=== PATIENT | female | born 1980 | race Caucasian/White ===

== ENCOUNTER → 2016-07-19 | Outpatient (CLI) | payer BC ==
[2016-07-19 12:14] LABS: CH 27.2; CHCM 32.8; HCT 42.1 % (34.0-46.0); HDW 2.89; HGB 13.3 gm/dL (11.4-16.0); MCH 26.3 pg (25.0-35.0); MCHC 31.5 g/dL (31.0-37.0); MCV 83.3 fL (80.0-100.0); Mean Platelet Volume 7.6; RBC 5.05 m/uL (3.80-5.40); RDW 14.6 % (11.5-15.5); WBC 6.1 k/uL (3.8-10.6)
[2016-07-19 12:44] LABS: INR 1.1 (<1.1)
[2016-07-19 13:06] LABS: ALT 30 U/L (9-52); AST 19 U/L (14-36); Alkaline Phosphatase 77 U/L (38-126); Anion Gap 10 mmol/L; Blood Urea Nitrogen 16 mg/dL (7-17); Calcium 9.3 mg/dL (8.4-10.2); Carbon Dioxide 28 mmol/L (22-30); Chloride 105 mmol/L (98-107); Cholesterol 135 mg/dL (<200); Glucose 67 mg/dL (74-99); HDL Cholesterol 51 mg/dL (40-60); Iron 46 ug/dL (37-170); Magnesium 1.8 mg/dL (1.6-2.3); Non-African American GFR(MDRD) >60 (>60 ml/min/1.73 sqM); Potassium 4.3 mmol/L (3.5-5.1); Sodium 143 mmol/L (137-145); Total Bilirubin 0.3 mg/dL (0.2-1.3); Total Protein 7.6 g/dL (6.3-8.2); Triglycerides 83 mg/dL (<150)
[2016-07-19 13:18] LABS: % Iron Saturation 14.8 % (20-50); Prealbumin 24 mg/dL (18-36); Total Iron Binding Capacity 310 ug/dL (265-497)
[2016-07-19 14:13] LABS: Vitamin B12 283 pg/mL (239-931)
[2016-07-19 14:48] LABS: Hemoglobin A1C 4.9 % (4.2-6.1)
[2016-07-21 18:54] LABS: Selenium 141 mcg/L (63-160)
== END | disposition home or self-care (01) ==
LOC: LABWHC1 11:34
PROVIDERS: ATTEND Surgery Plastic and Reconstructive Surgery
DX: Z48.815 Encounter for surgical aftercare following surgery on the digestive system (principal); E66.01 Morbid (severe) obesity due to excess calories; E21.1 Secondary hyperparathyroidism, not elsewhere classified; N19 Unspecified kidney failure; E89.1 Postprocedural hypoinsulinemia; D50.8 Other iron deficiency anemias; K90.9 Intestinal malabsorption, unspecified; E44.0 Moderate protein-calorie malnutrition; E55.9 Vitamin D deficiency, unspecified; K74.1 Hepatic sclerosis; K50.90 Crohn's disease, unspecified, without complications; Z98.84 Bariatric surgery status
CPT/HCPCS: 36415; 80053; 80061; 82306; 82525; 82607; 82728; 82746; 83036; 83540; 83550; 83735; 83970; 84100; 84134; 84255; 84425; 84443; 84590; 84630; 85027; 85610; 85730

== ENCOUNTER → 2016-08-03 | Outpatient (CLI) | payer BC ==
[2016-08-03 09:59] VITALS: BP 133/85; PULSE 82; RESP 18; TEMP 97.8; BMI 34.2
--- NOTE | 2016-09-19 22:31 | P.PN ---
Progress Note - Text DATE OF SERVICE: 08/03/2016 CHIEF COMPLAINT: Followup gastric bypass. HISTORY OF PRESENT ILLNESS: Candice Avery is a 36-year-old female who is status post Magaly-en-Y gastric bypass in October 2015. She is 9 months out. At the height of 5 feet 1-1/2 inches, her highest weight was 293 pounds. Today she comes in weighing 184 pounds. Her ideal body weight is 131 pounds. She has already lost 109 pounds. She has achieved 68% excess weight loss. Body mass index is reduced from 54.6 down to 34.2. Total BMI point reduction is 22.4. She is overweight by 53 pounds. She has lost another 13 pounds since her last evaluation, 4 months ago. She has been using nystatin powder for her chronic panniculitis as well. She has complete resolution of her diabetes type 2 including improvement of her hypertension as well and also reports resolution of gastroesophageal reflux disease. PAST MEDICAL HISTORY: 1. Diabetes type 2, resolved. 2. Hypertension, resolved. 3. Fatty liver disease. 4. Hypothyroidism. 5. Morbid obesity. 6. Gastroesophageal disease, resolved. PAST SURGICAL HISTORY: 1. x4. 2. Hysterectomy. 3. Endoscopy. 4. Uterine ablation. 5. Repeat upper endoscopy with balloon dilatation. 6. Gastric Bypass. MEDICATIONS: 1. Multivitamin. 2. Biotin. ALLERGIES: 1. AMOXICILLIN. 2. LATEX. 3. PENICILLIN. 4. SULFA. 5. CODEINE. 6. METFORMIN. SOCIAL HISTORY: No tobacco use. FAMILY HISTORY: Family history is pertinent for gallbladder disease. Also notable for heart disease. REVIEW OF SYSTEMS: CONSTITUTIONAL: [place] body weight of 131 pounds. She has lost 109 pounds. Percent excess weight loss is 68%. Body mass index reduced from 54.6 down to 34.2. Additional weight loss of 13 pounds in 3 to 4 months. ENDOCRINE: Resolved diabetes type 2. RESPIRATORY: Resolved obstructive sleep apnea. CARDIOVASCULAR: Resolved hypertension. GASTROINTESTINAL: No reports of gastroesophageal reflux disease. MUSCULOSKELETAL: Resolved lower back, including bilateral hip and knee pain due to morbid obesity. HEENT: No trouble with vision or hearing. SKIN: Consistent with panniculitis. HEMATOLOGIC: No personal or family history DVT or pulmonary emboli. PHYSICAL EXAM: VITAL SIGNS: 97.8, 82, 18, 133/85, 5 foot 1-1/2 inch, 184 pounds. Body mass index is 34.2. GENERAL: Well-developed female in no acute distress. ABDOMEN: Soft, nontender. No large palpable incisional hernias. Pannus extends over pubis over 6 cm. Hyperemia of the skin consistent with panniculitis. HEENT: No sclera icterus. Extraocular movements grossly intact. Moist buccal mucosa. Head is atraumatic, normocephalic. Hears conversational speech. No nasal drainage. NECK: Supple without lymphadenopathy. No JV distention. CHEST: Non-labored respirations and equal bilateral excursions. CARDIOVASCULAR: Regular rate and rhythm. Palpable 2+ radial pulses. MUSCULOSKELETAL: No clubbing, cyanosis or edema. NEUROLOGIC: No focal or lateralizing signs. PSYCH: Appropriate affect. Alert and oriented to person, place and time. LABS: Bariatric metabolic panel reviewed with hemoglobin normal at 13.3. PTT was elevated at 42. Glucose was in fact low at 67. Hemoglobin A1c completely resolved from 7.3 down to 4.9. Percent iron saturation down low at 14.8. Vitamin D severely deficient at 8.5. ASSESSMENT: 1. Morbid obesity due to excess calories, improved. 2. Body mass index reduced from 54.6 down to 34.2. 3. Status post Magaly-en-Y gastric bypass. 4. History of gastrojejunal stricture, resolved. 5. History of intractable nausea and vomiting, now resolved. 6. Reactive hypoglycemia, now resolved. 7. Diabetes type 2, [id number], resolved. 8. Hypokalemia, now resolved. 9. Low prealbumin, now resolved. 10. Vitamin A deficiency. 11. Thiamine deficiency. 12. Severe vitamin D deficiency. 13. Secondary hyperparathyroidism. 14. Poor calcium intake. 15. Fatty liver disease. 16. Hyperlipidemia. 17. Osteoarthritis of lower back secondary to morbid obesity, now resolved. 18. Osteoarthritis of the bilateral hips secondary to morbid obesity, now resolved. 19. Osteoarthritis of bilateral knees secondary to morbid obesity, now resolved. 20. Hypersomnia. 21. Dietary surveillance and counseling. 22. Resolved dysphagia. 23. Overweight. 24. Resolved hypertension. 25. Resolved obstructive sleep apnea. 26. Panniculitis, recurrent over 1 year of treatment. PLAN: 1. On exam, she has findings consistent with moderate size pannus including panniculitis. Recommend continue nystatin treatment. 2. She has lost over 100 pounds, would recommend evaluation for panniculectomy. 3. Panniculectomy packet was reviewed with risks of panniculectomy including bleeding, infection, flap failure, seroma including additional surgical procedure were described at length. 4. With her history of vitamin D deficiency, recommend immediate correction. 5. She will benefit from a 2-week high protein, low-calorie diet prior to her surgical intervention. 6. Recommend followup upon her one year followup. 7. DVT prophylaxis. 8. Antibiotic prophylaxis.
== END | disposition home or self-care (01) ==
LOC: BARWHC3 09:40
PROVIDERS: ATTEND Surgery Plastic and Reconstructive Surgery
DX: Z71.3 Dietary counseling and surveillance (principal); E66.01 Morbid (severe) obesity due to excess calories; Z68.34 Body mass index [BMI] 34.0-34.9, adult
CPT/HCPCS: 99211

== ENCOUNTER → 2016-11-30 | Outpatient (CLI) | payer BC ==
[2016-11-30 11:29] VITALS: BMI 32.9
[2016-11-30 11:54] VITALS: BP 131/91; PULSE 76; TEMP 98
[2016-11-30 12:15] LABS: CH 27.3; CHCM 32.7; HCT 40.7 % (34.0-46.0); HDW 2.86; HGB 13.8 gm/dL (11.4-16.0); MCH 28.4 pg (25.0-35.0); MCHC 33.9 g/dL (31.0-37.0); MCV 83.9 fL (80.0-100.0); Mean Platelet Volume 6.8; RBC 4.85 m/uL (3.80-5.40); RDW 14.4 % (11.5-15.5); WBC 5.2 k/uL (3.8-10.6)
[2016-11-30 12:23] LABS: ALT 39 U/L (9-52); AST 16 U/L (14-36); Alkaline Phosphatase 90 U/L (38-126); Anion Gap 12 mmol/L; Blood Urea Nitrogen 13 mg/dL (7-17); Calcium 9.2 mg/dL (8.4-10.2); Carbon Dioxide 23 mmol/L (22-30); Chloride 107 mmol/L (98-107); Cholesterol 124 mg/dL (<200); Glucose 82 mg/dL (74-99); HDL Cholesterol 52 mg/dL (40-60); Iron 35 ug/dL (37-170); Magnesium 1.9 mg/dL (1.6-2.3); Non-African American GFR(MDRD) >60 (>60 ml/min/1.73 sqM); Phosphorous 4.1 mg/dL (2.5-4.5); Potassium 4.1 mmol/L (3.5-5.1); Sodium 142 mmol/L (137-145); Total Bilirubin 0.4 mg/dL (0.2-1.3); Triglycerides 68 mg/dL (<150)
[2016-11-30 12:33] LABS: % Iron Saturation 11.3 % (20-50); Prealbumin 24 mg/dL (18-36); Total Iron Binding Capacity 310 ug/dL (265-497)
[2016-11-30 13:14] LABS: Hemoglobin A1C 4.9 % (4.2-6.1)
[2016-11-30 13:28] LABS: Vitamin B12 236 pg/mL (239-931)
[2016-11-30 13:52] LABS: INR 1.1 (<1.1); Partial Thromboplastin Time 33.5 sec (22.0-30.0); Prothrombin Time 10.9 sec (9.0-12.0)
[2016-12-05 16:17] LABS: Selenium 159 mcg/L (63-160)
--- NOTE | 2016-12-13 19:03 | P.PN ---
Progress Note - Text DATE OF SERVICE: 11/30/2016 CHIEF COMPLAINT: Followup gastric bypass. HISTORY OF PRESENT ILLNESS: Candice Avery is a 36-year-old female who is status post Magaly-en-Y gastric bypass in October 2015. She is 13 months out. At the height of 5 feet 1-1/2 inches, her highest weight was 293 pounds. Today she comes in weighing 177 pounds. Her ideal body weight is 131 pounds. She has lost 116 pounds. She has achieved 72% excess weight loss. Body mass index is reduced from 54.6 down to 32.9. Total BMI point reduction is 21.6. She is overweight by 46 pounds. She has lost another 7 pounds since her last evaluation, 4 months ago. She comes in with moderate to severe recurrent panniculitis of the skin. Despite using powders and medicated and prescribed creams, her symptoms are still persistent. PAST MEDICAL HISTORY: 1. Diabetes type 2, resolved. 2. Hypertension, resolved. 3. Fatty liver disease. 4. Hypothyroidism. 5. Morbid obesity. 6. Gastroesophageal disease, resolved. 7. Panniculitis. PAST SURGICAL HISTORY: 1. x4. 2. Hysterectomy. 3. Endoscopy. 4. Uterine ablation. 5. Repeat upper endoscopy with balloon dilatation. 6. Gastric Bypass. MEDICATIONS: 1. Ativan. ALLERGIES: 1. AMOXICILLIN. 2. LATEX. 3. PENICILLIN. 4. SULFA. 5. CODEINE. 6. METFORMIN. SOCIAL HISTORY: No tobacco use. FAMILY HISTORY: Family history is pertinent for gallbladder disease. Also notable for heart disease. REVIEW OF SYSTEMS: CONSTITUTIONAL: At the height of 5 feet 1-1/2 inches, her highest weight was 293 pounds. Today she comes in weighing 177 pounds. Her ideal body weight is 131 pounds. She has lost 116 pounds. She has achieved 72% excess weight loss. Body mass index is reduced from 54.6 down to 32.9. Total BMI point reduction is 21.6. She is overweight by 46 pounds. ENDOCRINE: Resolved diabetes type 2. No thyroid disorder. RESPIRATORY: Resolved obstructive sleep apnea. No recent pneumonia. CARDIOVASCULAR: Resolved hypertension. No chest pain. GASTROINTESTINAL: No reports of gastroesophageal reflux disease. No reports of dumping syndrome. MUSCULOSKELETAL: Resolved lower back, including bilateral hip and knee pain due to morbid obesity. HEENT: No trouble with vision or hearing. SKIN: Consistent with panniculitis. HEMATOLOGIC: No personal or family history DVT or pulmonary emboli. PHYSICAL EXAM: VITAL SIGNS: 5 foot 1-1/2 inch, 177 pounds. Body mass index is 32.9 Vital Signs Temp 98.0 F 11/30/16 11:52 Pulse 76 11/30/16 11:52 Resp BP 131/91 11/30/16 11:52 Pulse Ox GENERAL: Well-developed female in no acute distress. ABDOMEN: Soft, nontender. Pannus extends over pubis over 10 cm. Hyperemia of the skin consistent with panniculitis. Waist 42.5 inches. Weight of pannus between 10-15 pounds. HEENT: No sclera icterus. Extraocular movements grossly intact. Moist buccal mucosa. Head is atraumatic, normocephalic. Hears conversational speech. No nasal drainage. NECK: Supple without lymphadenopathy. No JV distention. CHEST: Non-labored respirations and equal bilateral excursions. CARDIOVASCULAR: Regular rate and rhythm. Palpable 2+ radial pulses. MUSCULOSKELETAL: No clubbing, cyanosis or edema. NEUROLOGIC: No focal or lateralizing signs. PSYCH: Appropriate affect. Alert and oriented to person, place and time. LABS: Laboratory Last Values WBC 5.2 k/uL (3.8-10.6) 11/30/16 11:39 RBC 4.85 m/uL (3.80-5.40) 11/30/16 11:39 Hgb 13.8 gm/dL (11.4-16.0) 11/30/16 11:39 Hct 40.7 % (34.0-46.0) 11/30/16 11:39 MCV 83.9 fL (80.0-100.0) 11/30/16 11:39 MCH 28.4 pg (25.0-35.0) 11/30/16 11:39 MCHC 33.9 g/dL (31.0-37.0) 11/30/16 11:39 RDW 14.4 % (11.5-15.5) 11/30/16 11:39 Plt Count 267 k/uL (150-450) 11/30/16 11:39 PT 10.9 sec (9.0-12.0) 11/30/16 11:39 INR 1.1 (<1.1) 11/30/16 11:39 APTT 33.5 sec (22.0-30.0) H 11/30/16 11:39 Sodium 142 mmol/L (137-145) 11/30/16 11:39 Potassium 4.1 mmol/L (3.5-5.1) 11/30/16 11:39 Chloride 107 mmol/L (98-107) 11/30/16 11:39 Carbon Dioxide 23 mmol/L (22-30) 11/30/16 11:39 Anion Gap 12 mmol/L 11/30/16 11:39 BUN 13 mg/dL (7-17) 11/30/16 11:39 Creatinine 0.50 mg/dL (0.52-1.04) L 11/30/16 11:39 Est GFR (MDRD) Af Amer >60 (>60 ml/min/1.73 sqM) 11/30/16 11:39 Est GFR (MDRD) Non-Af >60 (>60 ml/min/1.73 sqM) 11/30/16 11:39 Glucose 82 mg/dL (74-99) 11/30/16 11:[address] Glu mg/dL 94 mg/dL 11/30/16 11:39 Hemoglobin A1c 4.9 % (4.2-6.1) 11/30/16 11:39 Calcium 9.2 mg/dL (8.4-10.2) 11/30/16 11:39 Phosphorus 4.1 mg/dL (2.5-4.5) 11/30/16 11:39 Magnesium 1.9 mg/dL (1.6-2.3) 11/30/16 11:39 Iron 35 ug/dL (37-170) L 11/30/16 11:39 TIBC 310 ug/dL (265-497) 11/30/16 11:39 % Saturation 11.3 % (20-50) L 11/30/16 11:39 Ferritin 61 ng/mL (6-137) 11/30/16 11:39 Total Bilirubin 0.4 mg/dL (0.2-1.3) 11/30/16 11:39 AST 16 U/L (14-36) 11/30/16 11:39 ALT 39 U/L (9-52) 11/30/16 11:39 Alkaline Phosphatase 90 U/L (38-126) 11/30/16 11:39 Total Protein 7.0 g/dL (6.3-8.2) 11/30/16 11:39 Albumin 4.2 g/dL (3.5-5.0) 11/30/16 11:39 Prealbumin 24 mg/dL (18-36) 11/30/16 11:39 Triglycerides 68 mg/dL (<150) 11/30/16 11:39 Cholesterol 124 mg/dL (<200) 11/30/16 11:39 LDL Cholesterol, Calc 58 mg/dL (0-99) 11/30/16 11:39 HDL Cholesterol 52 mg/dL (40-60) 11/30/16 11:39 Vitamin A 45 ug/dL (38-106) 11/30/16 11:39 Vitamin B1 62 ug/L (38-122) 11/30/16 11:39 Vitamin B12 236 pg/mL (239-931) L 11/30/16 11:39 Vitamin D 25-Hydroxy 15.8 ng/mL (30.0-100.0) L 11/30/16 11:39 Folate 11.70 ng/mL (>2.75) 11/30/16 11:39 TSH 1.370 mIU/L (0.465-4.680) 11/30/16 11:39 PTH Intact 72.8 pg/mL (14.0-72.0) H 11/30/16 11:39 Copper 1200 ug/L (810-1990) 11/30/16 11:39 Selenium 159 mcg/L (63-160) 11/30/16 11:39 Zinc 66 ug/dL (60-130) 11/30/16 11:39 ASSESSMENT: 1. Morbid obesity due to excess calories, improved. 2. Body mass index reduced from 54.6 down to 32.9. 3. Status post Magaly-en-Y gastric bypass. 4. Diabetes type 2, [id number], resolved. 5. Hypokalemia, now resolved. 6. Vitamin A deficiency. 7. Secondary hyperparathyroidism. 8. Osteoarthritis of lower back secondary to morbid obesity, now resolved. 9. Osteoarthritis of the bilateral hips secondary to morbid obesity, now resolved. 10. Osteoarthritis of bilateral knees secondary to morbid obesity, now resolved. 11. Resolved hypertension. 12. Resolved obstructive sleep apnea. 13. Panniculitis, recurrent over 1 year of treatment. 14. Iron deficiency anemia. 15. Vitamin B12 deficiency. 16. Vitamin D deficiency. PLAN: 1. Recommend bariatric metabolic panel. 2. Correction of I deficiency, vitamin B-12 deficiency and vitamin D deficiency prior to panniculectomy. 3. Protein intake over 60 g daily. 4. She has long-standing panniculitis and on exam have over 10+ pounds of excess skin causing symptoms. Recommend panniculectomy after correction of nutritional deficiencies. 5. Benefits and risks of panniculectomy including bleeding, infection, loss of 6 skin flap, loss of umbilicus, chronic pain, postoperative seroma, placement of drains were reviewed in detail. 6. Inpatient hospitalization over 2 nights. 7. DVT prophylaxis. 8. Antibiotic prophylaxis. 9. Recommend obtaining an abdominal binder formfitting at this time.
== END | disposition home or self-care (01) ==
LOC: BARWHC3 09:43
PROVIDERS: ATTEND Surgery Plastic and Reconstructive Surgery
DX: E66.01 Morbid (severe) obesity due to excess calories (principal); E50.9 Vitamin A deficiency, unspecified; E21.3 Hyperparathyroidism, unspecified; D50.9 Iron deficiency anemia, unspecified; E55.9 Vitamin D deficiency, unspecified; E53.8 Deficiency of other specified B group vitamins; E89.1 Postprocedural hypoinsulinemia; D50.8 Other iron deficiency anemias; K90.9 Intestinal malabsorption, unspecified; E44.0 Moderate protein-calorie malnutrition; K74.1 Hepatic sclerosis; N19 Unspecified kidney failure; K50.90 Crohn's disease, unspecified, without complications; Z88.0 Allergy status to penicillin; Z88.2 Allergy status to sulfonamides; Z88.5 Allergy status to narcotic agent; Z91.040 Latex allergy status
CPT/HCPCS: 36415; 80053; 80061; 82306; 82525; 82607; 82728; 82746; 83036; 83540; 83550; 83735; 83970; 84100; 84134; 84255; 84425; 84443; 84590; 84630; 85027; 85610; 85730; 97803; 99211

== ENCOUNTER 2017-03-26 21:20 | Emergency (ER) | payer SELFPAY ==
[2017-03-26 21:24] VITALS: TEMP 97.8
[2017-03-26] MEDS ORDERED: HYDROmorphone 1 MG/ML 1 ML SYRINGE IVP STA (21:58)
[2017-03-26] MEDS ORDERED: KETOROLAC 30 MG/ML 1 ML VIAL IVP STA (21:58)
[2017-03-26] MEDS ORDERED: SODIUM CHLORIDE 0.9% 500 ML IV ONE (21:59)
[2017-03-26 22:35] LABS: Appearance,Urine Cloudy (Clear); Bacteria,Urine Many /hpf; Bilirubin,Urine Negative (Negative); Glucose,Urine (UA) Negative (Negative); Ketones,Urine Negative (Negative); Leukocyte Esterase,Urine Moderate (Negative); Mucus,Urine Rare /hpf; Nitrite,Urine Positive (Negative); Particle Count 7207; Protein,Urine Negative (Negative); Specific Gravity,Urine 1.019 (1.001-1.035); Squamous Epithelial Cell,Urine 3 /hpf (0-4); UA Billing (MACRO vs. MICRO) MICRO; WBC,Urine 12 /hpf (0-5)
[2017-03-26 22:42] LABS: Basophils % (A) 0 %; CHCM 32.3; Eosinophils # (A) 0.1 k/uL (0-0.7); Eosinophils % (A) 1 %; HCT 43.7 % (34.0-46.0); HDW 2.69; HGB 13.9 gm/dL (11.4-16.0); Luc # (Auto) 0.13; Luc % (Auto) 2; Lymphocytes # (A) 2.6 k/uL (1.0-4.8); Lymphocytes % (A) 35 %; MCH 27.8 pg (25.0-35.0); MCHC 31.9 g/dL (31.0-37.0); MCV 87.1 fL (80.0-100.0); Mean Platelet Volume 6.8; Monocytes # (A) 0.3 k/uL (0-1.0); Monocytes % (A) 4 %; Neutrophils # (A) 4.3 k/uL (1.3-7.7); Neutrophils % (A) 57 %; RBC 5.02 m/uL (3.80-5.40); RDW 13.9 % (11.5-15.5); WBC 7.4 k/uL (3.8-10.6); WBC (Perox) 7.28
[2017-03-26 22:51] LABS: ALT 25 U/L (9-52); AST 15 U/L (14-36); Alkaline Phosphatase 84 U/L (38-126); Amylase 60 U/L (30-110); Anion Gap 9 mmol/L; Blood Urea Nitrogen 18 mg/dL (7-17); Calcium 9.4 mg/dL (8.4-10.2); Carbon Dioxide 25 mmol/L (22-30); Chloride 106 mmol/L (98-107); Glucose 89 mg/dL (74-99); Non-African American GFR(MDRD) >60 (>60 ml/min/1.73 sqM); Potassium 4.2 mmol/L (3.5-5.1); Sodium 140 mmol/L (137-145); Total Bilirubin 0.2 mg/dL (0.2-1.3); Total Protein 7.6 g/dL (6.3-8.2)
--- NOTE | 2017-03-26 23:24 | ED ---
Female Urogenital HPI - General Chief complaint: Urogenital Stated complaint: Back Pain Time Seen by Provider: 03/26/17 21:52 Source: patient Mode of arrival: ambulatory Limitations: no limitations - History of Present Illness Initial comments: 37-year-old female patient presents to emergency department today for complaints of right flank pain. Patient states that she has had this pain since . States it is a constant aching pain. She denies any worsening of the pain with movement. States she has taken Tylenol however has not helped. She denies any radiation of the pain down her legs. Denies any numbness or tingling. Denies a loss of bowel or bladder control. Denies any saddle anesthesia. States that she has had increased frequency of urination. States that she does have a history of kidney stones however this pain is different. Patient denies any recent rash, fever, chills, shortness breath, chest pain, abdominal pain, nausea, vomiting, diarrhea, constipation, dizziness , weakness, hematuria, dysuria, urinary urgency, headache, visual changes, or any other complaints. She denies any chance of . - Related Data Home Medications Medication Instructions Recorded Confirmed Acetaminophen [Tylenol] 325 - 650 mg PO Q6H PRN 03/26/17 03/26/17 Previous Rx's Medication Instructions Recorded Ciprofloxacin HCl [Cipro] 500 mg PO Q12HR #14 tablet 03/26/17 Hydrocodone/Acetaminophen [Collison 1 tab PO Q6HR PRN #15 tab 03/26/17 5-325] Allergies Allergy/AdvReac Type Severity Reaction Status Date / Time latex Allergy pain and Verified 03/26/17 21:42 itching amoxicillin AdvReac flu like Verified 03/26/17 21:42 symptoms codeine AdvReac Nausea Verified 03/26/17 21:42 metformin AdvReac DIARRHEA Verified 03/26/17 21:42 AND FLU LIKE SYMPTOMS Penicillins AdvReac flu like Verified 03/26/17 21:42 symptoms Sulfa (Sulfonamide AdvReac flu like Verified 03/26/17 21:42 Antibiotics) symptoms Review of Systems ROS Statement: Those systems with pertinent positive or pertinent negative responses have been documented in the HPI. ROS Other: All systems not noted in ROS Statement are negative. Past Medical History Past Medical History: Hyperlipidemia, Liver Disease Additional Past Medical History / Comment(s): Fatty liver,hx difficulty swallowing, no tx. for diabetes anymore. Left face numbness 01/16/16, red raised rash on arms and legs-went to ER History of Any Multi-Drug Resistant Organisms: None Reported Past Surgical History: Bariatric Surgery, Section, Hysterectomy, Tonsillectomy, Uterine Ablation Additional Past Surgical History / Comment(s): exploratory lower abdominal laparoscopy.10-11-15 lap brenda en y, recent EGD Past Anesthesia/Blood Transfusion Reactions: No Reported Reaction Additional Past Anesthesia/Blood Transfusion Reaction / Comment(s): claustrophobia Past Psychological History: Depression Smoking Status: Never smoker Past Alcohol Use History: None Reported Past Drug Use History: None Reported - Past Family History Mother Family Medical History: Congestive Heart Failure (CHF), Fibromyalgia Additional Family Medical History / Comment(s): at 43 from heart failure General Exam Limitations: no limitations General appearance: alert, in no apparent distress, other (This is a well- developed, well-nourished adult female patient in no acute distress. Vital signs upon presentation are temperature 97.8F, pulse 83, respirations 20, blood pressure 133/88, pulse ox 98% on room air.) Respiratory exam: Present: normal lung sounds bilaterally. Absent: respiratory distress, wheezes, rales, rhonchi, stridor Cardiovascular Exam: Present: regular rate, normal rhythm, normal heart sounds. Absent: systolic murmur, diastolic murmur, rubs, gallop, clicks GI/Abdominal exam: Present: soft, normal bowel sounds. Absent: distended, tenderness, guarding, rebound, rigid Back exam: Present: normal inspection. Absent: CVA tenderness (R), CVA tenderness (L) Neurological exam: Present: alert, oriented X3, CN II-XII intact Psychiatric exam: Present: normal affect, normal mood Skin exam: Present: warm, dry, intact, normal color. Absent: rash Course Vital Signs 03/26/17 03/26/17 03/26/17 21:22 22:12 23:41 Temperature 97.8 F Pulse Rate 83 77 72 Respiratory 20 18 16 Rate Blood Pressure 133/88 138/88 115/83 O2 Sat by Pulse 98 97 98 Oximetry 03/27/17 00:44 Temperature 97.8 F Pulse Rate 74 Respiratory 18 Rate Blood Pressure 136/81 O2 Sat by Pulse 97 Oximetry Medical Decision Making - Medical Decision Making 37-year-old female patient presents to emergency department today with complaints of right flank and right lower back pain. Serum labs reviewed and were unremarkable. Urinalysis did show a cloudy appearance, small amount of blood, positive nitrites, moderate leukocyte esterase, 12 white blood cells, many bacteria, rare mucus, and few budding yeast. Patient's vital signs are stable, she is afebrile. She'll be diagnosed with urinary tract infection. She 'll be given a an IV dose of Rocephin here in the department. She does have a documented ALLERGY to penicillin however just states that it makes her feel achy. She has previous a tolerated Cipro without any problems we will start this as outpatient prescription. She is instructed to follow-up with her primary care physician for recheck in 1-2 days. She is instructed to obtain repeat urinalysis once antibiotics are complete to ensure clearance of infection. She is instructed to return here immediately for any new, worsening , or concerning symptoms. She was informed of all findings and her questions were answered. She verbalizes understanding and agrees with this plan. - Lab Data Result diagrams: 03/26/17 22:34 03/26/17 22:34 Lab Results 03/26/17 03/26/17 03/26/17 Range/Units 22:17 22:34 22:34 WBC 7.4 (3.8-10.6) k/uL RBC 5.02 (3.80-5.40) m/uL Hgb 13.9 (11.4-16.0) gm/dL Hct 43.7 (34.0-46.0) % MCV 87.1 (80.0-100.0) fL MCH 27.8 (25.0-35.0) pg MCHC 31.9 (31.0-37.0) g/dL RDW 13.9 (11.5-15.5) % Plt Count 298 (150-450) k/uL Neutrophils % 57 % Lymphocytes % 35 % Monocytes % 4 % Eosinophils % 1 % Basophils % 0 % Neutrophils # 4.3 (1.3-7.7) k/uL Lymphocytes # 2.6 (1.0-4.8) k/uL Monocytes # 0.3 (0-1.0) k/uL Eosinophils # 0.1 (0-0.7) k/uL Basophils # 0.0 (0-0.2) k/uL Sodium 140 (137-145) mmol/L Potassium 4.2 (3.5-5.1) mmol/L Chloride 106 (98-107) mmol/L Carbon Dioxide 25 (22-30) mmol/L Anion Gap 9 mmol/L BUN 18 H (7-17) mg/dL Creatinine 0.61 (0.52-1.04) mg/dL Est GFR (MDRD) Af Amer >60 (>60 ml/min/1.73 sqM) Est GFR (MDRD) Non-Af >60 (>60 ml/min/1.73 sqM) Glucose 89 (74-99) mg/dL Calcium 9.4 (8.4-10.2) mg/dL Total Bilirubin 0.2 (0.2-1.3) mg/dL AST 15 (14-36) U/L ALT 25 (9-52) U/L Alkaline Phosphatase 84 (38-126) U/L Total Protein 7.6 (6.3-8.2) g/dL Albumin 4.5 (3.5-5.0) g/dL Amylase 60 (30-110) U/L Lipase 196 (23-300) U/L Urine Color Yellow Urine Appearance Cloudy H (Clear) Urine pH 6.0 (5.0-8.0) Ur Specific [place] 1.019 (1.001-1.035) Urine Protein Negative (Negative) Urine Glucose (UA) Negative (Negative) Urine Ketones Negative (Negative) Urine Blood Small H (Negative) Urine Nitrite Positive H (Negative) Urine Bilirubin Negative (Negative) Urine Urobilinogen 2.0 (<2.0) mg/dL Ur Leukocyte Esterase Moderate H (Negative) Urine WBC 12 H (0-5) /hpf Ur Squamous Epith Cells 3 (0-4) /hpf Urine Bacteria Many H (None) /hpf Urine Mucus Rare H (None) /hpf Urine Yeast (Budding) Few H (None) /hpf Disposition Clinical Impression: Urinary tract infection, Flank pain Disposition: HOME SELF-CARE Condition: Good Instructions: Urinary Tract Infection in Women (ED) Additional Instructions: Increase fluids. Complete antibiotic prescription in full. Follow-up with your primary care physician for recheck in 1-2 days. Return here immediately for any new, worsening, or concerning symptoms. Prescriptions: Ciprofloxacin HCl [Cipro] 500 mg PO Q12HR #14 tablet Hydrocodone/Acetaminophen [Collison 5-325] 1 tab PO Q6HR PRN #15 tab PRN Reason: Pain Referrals: Dwain Orr DO [Primary Care Provider] - 1-2 days Time of Disposition: 23:24
[2017-03-27] MEDS ORDERED: ONDANSETRON 4 MG ODT STARTER PACK 2 TAB BTL PO PRN (00:38)
[2017-03-27 00:45] VITALS: BP 136/81; PULSE 74; RESP 18
[2017-03-27] MEDS ORDERED: ONDANSETRON 4 MG ODT STARTER PACK 2 TAB BTL PO STA (00:45)
== END 2017-03-27 00:49 | disposition home or self-care (01) ==
LOC: EC 21:20
DX: N39.0 Urinary tract infection, site not specified (principal); Z87.442 Personal history of urinary calculi; Z88.0 Allergy status to penicillin; Z88.2 Allergy status to sulfonamides; Z88.5 Allergy status to narcotic agent; Z88.8 Allergy status to other drugs, medicaments and biological substances; Z91.040 Latex allergy status
CPT/HCPCS: 99283 ×2; 96374 ×2; 96375 ×3; 36415; 80053; 82150; 83690; 85025; 81001; J0696; J1885; J1170; S0119

== ENCOUNTER → 2017-10-24 | Outpatient (CLI) | payer SELFPAY ==
[2017-10-24 17:06] VITALS: BP 119/82; PULSE 94; TEMP 97.9; BMI 40.2
--- NOTE | 2017-10-24 17:31 | P.PN ---
Subjective Progress Note Date: 10/24/17 DATE OF SERVICE: 10/24/2017 CHIEF COMPLAINT: Follow-up gastric bypass. HISTORY OF PRESENT ILLNESS: Candice Avery is a 37-year-old female who is status post Magaly-en-Y gastric bypass in October 2015. She is 2 years out. At the height of 5 feet 1-1/2 inches, her highest weight was 293 pounds. Today she comes in weighing 216 pounds from 177 pounds 1 year ago. Her ideal body weight is 131 pounds. She has lost 77 pounds from 116 pounds. She has achieved 47% excess weight loss. Body mass index is reduced from 54.6 down to 40.3. She is overweight by 85 pounds. She has gained 39 pounds in 1 year. She comes in moderate weight gain today. She reports fatigue all the time. She has been gaining 1 pound each week. She is not on any vitamins. She is donating plasma. No reports of abdominal pain. She is hungry all the time. She is food grazing. She is eating moderate cheese and eating processed meats. No reports of constipation. She has not seen her PCP in over 1 year. She has milk allergy. PAST MEDICAL HISTORY: 1. Diabetes type 2, resolved. 2. Hypertension, resolved. 3. Fatty liver disease. 4. Hypothyroidism. 5. Morbid obesity. 6. Gastroesophageal disease, resolved. 7. Panniculitis. PAST SURGICAL HISTORY: 1. x4. 2. Hysterectomy. 3. Endoscopy. 4. Uterine ablation. 5. Repeat upper endoscopy with balloon dilatation. 6. Gastric Bypass. MEDICATIONS: 1. Ativan. ALLERGIES: 1. AMOXICILLIN. 2. LATEX. 3. PENICILLIN. 4. SULFA. 5. CODEINE. 6. METFORMIN. SOCIAL HISTORY: No tobacco use. FAMILY HISTORY: Family history is pertinent for gallbladder disease. Also notable for heart disease. REVIEW OF SYSTEMS: CONSTITUTIONAL: At the height of 5 feet 1-1/2 inches, her highest weight was 293 pounds. Today she comes in weighing 177 pounds. Her ideal body weight is 131 pounds. She has lost 116 pounds. She has achieved 72% excess weight loss. Body mass index is reduced from 54.6 down to 32.9. Total BMI point reduction is 21.6. She is overweight by 46 pounds. ENDOCRINE: Resolved diabetes type 2. No thyroid disorder. RESPIRATORY: Resolved obstructive sleep apnea. No recent pneumonia. CARDIOVASCULAR: Resolved hypertension. No chest pain. GASTROINTESTINAL: No reports of gastroesophageal reflux disease. No reports of dumping syndrome. MUSCULOSKELETAL: Resolved lower back, including bilateral hip and knee pain due to morbid obesity. HEENT: No trouble with vision or hearing. SKIN: Consistent with panniculitis. HEMATOLOGIC: No personal or family history DVT or pulmonary emboli. PHYSICAL EXAM: VITAL SIGNS: 5 foot 1-1/2 inch, 216 pounds. Body mass index is 40.3 Vital Signs Temp 97.9 F 10/24/17 17:00 Pulse 94 10/24/17 17:00 Resp BP 119/82 10/24/17 17:00 Pulse Ox GENERAL: Well-developed female in no acute distress. ABDOMEN: Soft, nontender. Nondistended. HEENT: No sclera icterus. Extraocular movements grossly intact. Moist buccal mucosa. Head is atraumatic, normocephalic. Hears conversational speech. No nasal drainage. NECK: Supple without lymphadenopathy. No JV distention. CHEST: Non-labored respirations and equal bilateral excursions. CARDIOVASCULAR: Regular rate and rhythm. Palpable 2+ radial pulses. MUSCULOSKELETAL: No clubbing, cyanosis or edema. NEUROLOGIC: No focal or lateralizing signs. Cranial nerves II-12 grossly intact. PSYCH: Appropriate affect. Alert and oriented to person, place and time. SKIN: Well perfused. Good skin turgor. ASSESSMENT: 1. Morbid obesity due to excess calories, improved. 2. Body mass index reduced from 54.6 down to 40.1 3. Status post Magaly-en-Y gastric bypass. 4. Diabetes type 2, [id number] 5. Weight gain following bariatric procedure. PLAN: 1. Get labs for bariatric labs. 2. Food dairy journal for dietary surveillance and counseling. 3. She works at home and [employer] all time. She is eating out of boredom. 4. Follow-up in 4 weeks. 5. She is drinking pickle juice and V-8 juice. High salt content was also described. Objective - Vital Signs Vital signs: Vital Signs Temp 97.9 F 10/24/17 17:00 Pulse 94 10/24/17 17:00 Resp BP 119/82 10/24/17 17:00 Pulse Ox Intake & Output 10/23/17 10/24/17 10/24/17 18:59 06:59 18:59 Weight 98.293 kg
== END | disposition home or self-care (01) ==
LOC: BARWHC3 16:25
PROVIDERS: ATTEND Surgery Plastic and Reconstructive Surgery
DX: Z48.815 Encounter for surgical aftercare following surgery on the digestive system (principal); E66.01 Morbid (severe) obesity due to excess calories; Z98.84 Bariatric surgery status; Z68.41 Body mass index [BMI] 40.0-44.9, adult; E11.9 Type 2 diabetes mellitus without complications; E03.9 Hypothyroidism, unspecified; Z88.0 Allergy status to penicillin; Z88.2 Allergy status to sulfonamides; Z88.5 Allergy status to narcotic agent
CPT/HCPCS: 99211

== ENCOUNTER → 2017-11-12 | Outpatient (CLI) | payer SELFPAY ==
[2017-11-12 10:06] LABS: HCT 35.7 % (34.0-46.0); HGB 11.5 gm/dL (11.4-16.0); MCH 27.6 pg (25.0-35.0); MCHC 32.4 g/dL (31.0-37.0); MCV 85.1 fL (80.0-100.0); Mean Platelet Volume 6.9; Platelet Count 244 k/uL (150-450); RBC 4.19 m/uL (3.80-5.40); RDW 13.5 % (11.5-15.5); WBC 5.9 k/uL (3.8-10.6)
[2017-11-12 10:22] LABS: ALT 19 U/L (9-52); AST 13 U/L (14-36); Albumin 3.8 g/dL (3.5-5.0); Alkaline Phosphatase 61 U/L (38-126); Anion Gap 13 mmol/L; Blood Urea Nitrogen 14 mg/dL (7-17); Calcium 8.8 mg/dL (8.4-10.2); Carbon Dioxide 20 mmol/L (22-30); Chloride 108 mmol/L (98-107); Cholesterol 126 mg/dL (<200); Glucose 115 mg/dL (74-99); HDL Cholesterol 56 mg/dL (40-60); LDL Cholesterol,Calculated 48 mg/dL (0-99); Magnesium 1.7 mg/dL (1.6-2.3); Phosphorus 3.2 mg/dL (2.5-4.5); Potassium 3.9 mmol/L (3.5-5.1); Sodium 141 mmol/L (137-145); Total Bilirubin 0.2 mg/dL (0.2-1.3); Total Protein 6.2 g/dL (6.3-8.2); Triglycerides 109 mg/dL (<150)
[2017-11-12 15:59] LABS: Iron Saturation 12.92 (12.00-45.00)
[2017-11-12 16:28] LABS: Folate, Serum 16.6 ng/mL; Vitamin D 25 Hydroxy 10.6 ng/mL (30.0-100.0)
[2017-11-12 17:27] LABS: Parathyroid Hormone Intact 54.6 pg/mL (14.0-72.0)
[2017-11-12 18:40] LABS: Hemoglobin A1C 4.8 % (4.0-6.0)
[2017-11-13 14:01] LABS: Vitamin A 56 ug/dL (38-106)
[2017-11-13 15:34] LABS: Zinc, Serum 68 ug/dL (60-130)
[2017-11-14 05:42] LABS: Vitamin B1 59 ug/L (38-122)
== END | disposition home or self-care (01) ==
LOC: LABWHC1 09:10
PROVIDERS: ATTEND Surgery Plastic and Reconstructive Surgery
DX: E21.1 Secondary hyperparathyroidism, not elsewhere classified (principal); D50.9 Iron deficiency anemia, unspecified; K90.9 Intestinal malabsorption, unspecified; E44.0 Moderate protein-calorie malnutrition; E55.9 Vitamin D deficiency, unspecified; K74.1 Hepatic sclerosis; N19 Unspecified kidney failure; K50.90 Crohn's disease, unspecified, without complications
CPT/HCPCS: 36415; 80053; 80061; 82306; 82525; 82607; 82728; 82746; 83036; 83540; 83550; 83735; 83970; 84100; 84134; 84255; 84425; 84443; 84590; 84630; 85027; 85610; 85730

== ENCOUNTER 2018-09-05 20:57 | Emergency (ER) | payer OTHER ==
--- NOTE | 2018-09-05 21:45 | ED ---
General Adult HPI - General Source: patient, RN notes reviewed, old records reviewed Mode of arrival: ambulatory Limitations: no limitations <Sammy Milligan - Last Filed: 09/05/18 23:08> <Olga Almazan - Last Filed: 09/06/18 02:38> - General Chief complaint: ENT Stated complaint: Ear pain Time Seen by Provider: 09/05/18 21:02 - History of Present Illness Initial comments: 38-year-old female patient past medical history of type 2 diabetes, hypertension, hyperlipidemia, recurrent otitis media presents to ED with 3 days of bilaterally ear pain. Patient states this feels similar to infectious has had in the past. Patient denies any other complaints. Systemic: Pt denies fatigue, myalgia, fever/chills, rash. Pt denies weakness, night sweats, weight loss. Neuro: Pt denies headache, visual disturbances, syncope or pre-syncope. HEENT: Pt denies ocular discharge or irritation, rhinorrhea, pharyngitis or notable lymphadenopathy. Cardiopulmonary: Pt denies chest pain, SOB, heart palpitations, dyspnea on exertion. Abdominal/GI: Pt denies abdominal pain, n/v/d. : Pt denies dysuria, burning w/ urination, frequency/urgency. Denies new onset urinary or bowel incontinence. MSK: Pt denies myalgia, loss of strength or function in extremities. Neuro: Pt denies new onset weakness, paresthesias. (Sammy Milligan) - Related Data Previous Rx's Medication Instructions Recorded Azithromycin [Zithromax Z-pack] 0 mg PO DIRECTED #6 tab 05/19/17 Cefdinir 300 mg PO Q12HR 10 Days #20 cap 09/05/18 Allergies Allergy/AdvReac Type Severity Reaction Status Date / Time latex Allergy pain and Verified 09/05/18 21:01 itching amoxicillin AdvReac flu like Verified 09/05/18 21:01 symptoms codeine AdvReac Nausea Verified 09/05/18 21:01 metformin AdvReac DIARRHEA Verified 09/05/18 21:01 AND FLU LIKE SYMPTOMS Penicillins AdvReac flu like Verified 09/05/18 21:01 symptoms Sulfa (Sulfonamide AdvReac flu like Verified 09/05/18 21:01 Antibiotics) symptoms Review of Systems ROS Other: All systems not noted in ROS Statement are negative. <Sammy Milligan - Last Filed: 09/05/18 23:08> ROS Other: All systems not noted in ROS Statement are negative. <Olga Almazan Lb - Last Filed: 09/06/18 02:38> ROS Statement: Those systems with pertinent positive or pertinent negative responses have been documented in the HPI. Past Medical History Past Medical History: Hyperlipidemia, Liver Disease Additional Past Medical History / Comment(s): Fatty liver,hx difficulty swallowing, no tx. for diabetes anymore. Left face numbness 01/16/16, red raised rash on arms and legs-went to ER History of Any Multi-Drug Resistant Organisms: None Reported Past Surgical History: Bariatric Surgery, Section, Hysterectomy, Tonsillectomy, Uterine Ablation Additional Past Surgical History / Comment(s): exploratory lower abdominal laparoscopy.10-11-15 lap brenda en y, recent EGD Past Anesthesia/Blood Transfusion Reactions: No Reported Reaction Additional Past Anesthesia/Blood Transfusion Reaction / Comment(s): claustrophobia Past Psychological History: Depression Smoking Status: Never smoker Past Alcohol Use History: None Reported Past Drug Use History: None Reported - Past Family History Mother Family Medical History: Congestive Heart Failure (CHF), Fibromyalgia Additional Family Medical History / Comment(s): at 43 from heart failure <Sammy Milligan - Last Filed: 09/05/18 23:08> General Exam Limitations: no limitations <Sammy Milligan - Last Filed: 09/05/18 23:08> - General Exam Comments Initial Comments: Constitutional: NAD, AOX3, Pt has pleasant affect. HEENT: NC/AT, trachea midline, neck supple, no lymphadenopathy. Posterior pharynx non erythematous, without exudates. External ears appear normal, without discharge. Left TM mildly erythematous, no bulging or perforation. Right TM mildly erythematous, no bulging or perforation. Mucous membranes moist. Eyes PERRLA, EOM intact. There is no scleral icterus. No pallor noted. Cardiopulmonary: RRR, no murmurs, rubs or gallops, no JVD noted. Lungs CTAB in anterior and posterior lopez. No peripheral edema. Abdominal exam: Abdomen soft and non-distended. Abdomen non-tender to palpation in all 4 quadrants. Bowel sounds active in LLQ. No hepatosplenomegaly. No ecchymosis Neuro: CN II-XII grossly intact. No nuchal rigidity. MSK: No posterior calf tenderness bilaterally, homans sign negative bilaterally. Posterior tibialis and radial pulse +2 bilaterally. Sensation intact in upper and lower extremities. Full active ROM in upper and lower extremities, 5/5 stregnth. (Sammy Milligan) Course Vital Signs 09/05/18 09/05/18 20:58 21:50 Temperature 98.9 F 98.8 F Pulse Rate 89 90 Respiratory 20 18 Rate Blood Pressure 143/77 140/74 O2 Sat by Pulse 98 98 Oximetry Medical Decision Making <Sammy Milligan - Last Filed: 09/05/18 23:08> <Olga Almazan - Last Filed: 09/06/18 02:38> - Medical Decision Making 38-year-old female patient past medical history of type 2 diabetes, hypertension, hyperlipidemia, recurrent otitis media presents to ED with 3 days of bilaterally ear pain. Patient states this feels similar to infectious has had in the past. Patient denies any other complaints. Patient vital signs stable, afebrile. Physical exam displayed: Left TM mildly erythematous, no bulging or perforation. Right TM mildly erythematous, no bulging or perforation. Due to penicillin ALLERGY patient to be treated with Cefdinir. Pt will follow up with PCP in 1-2 days. Pt will be referred to ENT due to recurrent otitis media. Case discussed with Dr. Almazan. (Sammy Milligan) I was available for consultation in the emergency department. The history and physical exam were done by the midlevel provider. I was consulted for this patient's care. I reviewed the case with the midlevel provider and based on their presentation of the patient, I agree with the assessment, medical decision making and plan of care as documented. (Olga Almazan) Disposition Is patient prescribed a controlled substance at d/c from ED?: No <Sammy Milligan - Last Filed: 09/05/18 23:08> <Olga Almazan - Last Filed: 09/06/18 02:38> Clinical Impression: Otitis media Disposition: HOME SELF-CARE Condition: Stable Instructions (If sedation given, give patient instructions): Earache (ED) Additional Instructions: Patient to adhere to previously discussed treatment plan and will take medication(s) as directed. Patient to follow up with PCP in 1-2 days. Patient to return to ED if symptoms do not improve. Please take medication as directed. Please follow up with primary care provider in 1-2 days. Please follow-up with ENT consult. Prescriptions: Cefdinir 300 mg PO Q12HR 10 Days #20 cap Referrals: Dwain Orr DO [Primary Care Provider] - 1-2 days Nigel Weeks MD [STAFF PHYSICIAN] - 1-2 days
[2018-09-05 21:51] VITALS: BP 140/74; PULSE 90; RESP 18; TEMP 98.8
== END 2018-09-05 21:50 | disposition home or self-care (01) ==
LOC: EC 20:57
DX: H66.93 Otitis media, unspecified, bilateral (principal); Z91.040 Latex allergy status; Z88.0 Allergy status to penicillin; Z88.5 Allergy status to narcotic agent; Z88.2 Allergy status to sulfonamides; Z88.8 Allergy status to other drugs, medicaments and biological substances; Z98.84 Bariatric surgery status
CPT/HCPCS: 99283

== ENCOUNTER → 2018-11-18 | Outpatient (CLI) | payer OTHER ==
--- NOTE | 2018-11-18 11:35 | XR ---
EXAMINATION TYPE: XR Hip Complete LT DATE OF EXAM: 11/18/2018 CLINICAL HISTORY: Low back pain and left hip pain after multiple falls. TECHNIQUE: AP and frogleg views of the left hip are obtained. COMPARISON: None. FINDINGS: There is no acute fracture/dislocation evident in the left hip. The joint space in the le ft hip appears within normal limits. The overlying soft tissue appears unremarkable. IMPRESSION: There is no acute fracture or dislocation in the left hip.
--- NOTE | 2018-11-18 11:43 | XR ---
EXAMINATION TYPE: XR lumbosacral spine min 4V DATE OF EXAM: 11/18/2018 CLINICAL HISTORY: Back pain TECHNIQUE: Frontal, lateral, and oblique images of the lumbar spine are obtained. COMPARISON: CT dated 05/18/2016 FINDINGS: There are 5 lumbar type vertebral bodies identified. The lumbar spine shows satisfactory vertebral body heights. Intervertebral disc space is slightly narrowed at L4-L5 with limbus vertebrae noted of L4. Mild multilevel malalignment is seen with very minimal retrolisthesis of L3 on L4, L4-L 5 and L5 on S1. This is unchanged from 05/18/2016. The oblique images appear within normal limits. Th e overlying soft tissue appears unremarkable. Surgical sutures are noted within the left mid abdomen. IMPRESSION: 1. No acute fracture is seen in the lumbar spine. 2. Mild multilevel degenerative disc disease of the lumbar spine with stable limbus vertebrae seen at L4 indicative of underlying degenerative disc disease. 3. Mild multilevel malalignment with minimal retrolisthesis of L3 on L4, L4 on L5 and L5 on S1 is lik blayne on a degenerative basis.
== END | disposition home or self-care (01) ==
LOC: RADXRMAIN 10:57
PROVIDERS: ATTEND Nurse Practitioner Family
DX: M43.16 Spondylolisthesis, lumbar region (principal); M51.36 Other intervertebral disc degeneration, lumbar region; M25.552 Pain in left hip
CPT/HCPCS: 72110; 73502

== ENCOUNTER 2018-12-10 12:30 | Emergency (ER) | payer OTHER ==
[2018-12-10] MEDS ORDERED: SODIUM CHLORIDE 0.9% 1,000 ML IV STA ×2 (13:21)
[2018-12-10] MEDS ORDERED: KETOROLAC 30 MG/ML 1 ML VIAL IVP STA (13:21)
[2018-12-10] MEDS ORDERED: MORPHINE SULFATE 4 MG/ML SYRINGE IVP STA (13:41)
[2018-12-10 13:56] LABS: Basophils % (A) 0 %; Eosinophils # (A) 0.1 k/uL (0-0.7); Eosinophils % (A) 2 %; HCT 37.7 % (34.0-46.0); HGB 12.2 gm/dL (11.4-16.0); Lymphocytes # (A) 1.6 k/uL (1.0-4.8); Lymphocytes % (A) 26 %; MCH 25.8 pg (25.0-35.0); MCHC 32.3 g/dL (31.0-37.0); Mean Platelet Volume 6.8; Monocytes # (A) 0.4 k/uL (0-1.0); Monocytes % (A) 6 %; Neutrophils # (A) 3.8 k/uL (1.3-7.7); Neutrophils % (A) 63 %; Platelet Count 306 k/uL (150-450); RBC 4.71 m/uL (3.80-5.40); RDW 14.8 % (11.5-15.5)
[2018-12-10 14:01] LABS: INR 0.9 (<1.2); Partial Thromboplastin Time 29.6 sec (22.0-30.0); Prothrombin Time 9.9 sec (9.0-12.0)
[2018-12-10 14:02] LABS: ALT 16 U/L (9-52); AST 18 U/L (14-36); African American GFR (CKD) >90 (>60 ml/min/1.73 sqM); Albumin 3.9 g/dL (3.5-5.0); Alkaline Phosphatase 57 U/L (38-126); Amylase 44 U/L (30-110); Anion Gap 10 mmol/L; Blood Urea Nitrogen 13 mg/dL (7-17); Calcium 9.2 mg/dL (8.4-10.2); Carbon Dioxide 22 mmol/L (22-30); Chloride 108 mmol/L (98-107); Glucose 119 mg/dL (74-99); Lipase 147 U/L (23-300); Potassium 4.4 mmol/L (3.5-5.1); Sodium 140 mmol/L (137-145); Total Bilirubin 0.3 mg/dL (0.2-1.3); Total Protein 6.5 g/dL (6.3-8.2)
[2018-12-10 14:09] LABS: Appearance,Urine Cloudy (Clear); Bilirubin,Urine Negative (Negative); Blood,Urine Small (Negative); Color,Urine Yellow; Glucose,Urine (UA) Negative (Negative); Ketones,Urine Negative (Negative); Leukocyte Esterase,Urine Negative (Negative); Mucus,Urine Rare /hpf; Nitrite,Urine Negative (Negative); PH, Urine 6.5 (5.0-8.0); Protein,Urine Negative (Negative); RBC,Urine 12 /hpf (0-5); Specific Gravity,Urine 1.022 (1.001-1.035); Squamous Epithelial Cell,Urine 3 /hpf (0-4); Urobilinogen,Urine <2.0 mg/dL (<2.0); WBC,Urine 7 /hpf (0-5)
--- NOTE | 2018-12-10 14:39 | ED ---
Abdominal Pain HPI - General Chief Complaint: Abdominal Pain Stated Complaint: back pain Time Seen by Provider: 12/10/18 13:15 Source: patient, RN notes reviewed, old records reviewed Mode of arrival: ambulatory Limitations: no limitations - History of Present Illness Initial Comments: 38 Shoh[place] per left-sided flank pain for the past 3 days. She states is occasionally radiate down her leg Patient normally has right-sided sciatic pain. She states she's also had frequent urination, dysuria. Patient denies any nausea or vomiting or fevers or chills. She states that she has polyuria. She relates that she has had a known history of jaundice disease within her back. She states that she had x-rays completed which showed a limbus vertebra at L4. She denies any loss of control of her urine or bowel habits. Denies Saddle anesthesias. - Related Data Home Medications Medication Instructions Recorded Confirmed Azithromycin [Zithromax] 250 mg PO DAILY 12/10/18 12/10/18 Hydrocodone/Acetaminophen [H[place]rick 1 tab PO Q8H PRN 12/10/18 12/10/18 5-325] Methocarbamol [Robaxin] 500 mg PO HS 12/10/18 12/10/18 Sertraline [Zoloft] 50 mg PO HS 12/10/18 12/10/18 Previous Rx's Medication Instructions Recorded Nitrofurantoin Monohyd/M-Cryst 100 mg PO Q12HR #14 cap 12/10/18 [Macrobid] traMADol HCl [Ultram] 50 mg PO Q6HR PRN 3 Days #12 tab 12/10/18 Allergies Allergy/AdvReac Type Severity Reaction Status Date / Time amoxicillin AdvReac flu like Verified 12/10/18 13:07 symptoms codeine AdvReac Nausea Verified 12/10/18 13:07 latex AdvReac pain and Verified 12/10/18 13:07 itching metformin AdvReac DIARRHEA Verified 12/10/18 13:07 AND FLU LIKE SYMPTOMS Penicillins AdvReac flu like Verified 12/10/18 13:07 symptoms Sulfa (Sulfonamide AdvReac flu like Verified 12/10/18 13:07 Antibiotics) symptoms Review of Systems ROS Statement: Those systems with pertinent positive or pertinent negative responses have been documented in the HPI. ROS Other: All systems not noted in ROS Statement are negative. Past Medical History Past Medical History: Hyperlipidemia, Liver Disease Additional Past Medical History / Comment(s): Fatty liver,hx difficulty sw allowing, no tx. for diabetes anymore. Left face numbness 01/16/16, red raised rash on arms and legs-went to ER History of Any Multi-Drug Resistant Organisms: None Reported Past Surgical History: Bariatric Surgery, Section, Hysterectomy, Tons illectomy, Uterine Ablation Additional Past Surgical History / Comment(s): exploratory lower abdominal laparoscopy.10-11-15 lap magaly en y, recent EGD Past Anesthesia/Blood Transfusion Reactions: No Reported Reaction Additional Past Anesthesia/Blood Transfusion Reaction / Comment(s): claustrophobia Past Psychological History: Depression Smoking Status: Never smoker Past Alcohol Use History: None Reported Past Drug Use History: None Reported - Past Family History Mother Family Medical History: Congestive Heart Failure (CHF), Fibromyalgia Additional Family Medical History / Comment(s): at 43 from heart failure General Exam - General Exam Comments Initial Comments: Alert and oriented 38-year-old female. No significant distress. Limitations: no limitations General appearance: alert, in no apparent distress Head exam: Present: atraumatic, normocephalic, normal inspection Eye exam: Present: normal appearance, PERRL, EOMI. Absent: scleral icterus, conjunctival injection, periorbital swelling ENT exam: Present: normal exam, mucous membranes moist Neck exam: Present: normal inspection. Absent: tenderness, meningismus, lymphadenopathy Respiratory exam: Present: normal lung sounds bilaterally. Absent: respiratory distress, wheezes, rales, rhonchi, stridor Cardiovascular Exam: Present: regular rate, normal rhythm, normal heart sounds. Absent: systolic murmur, diastolic murmur, rubs, gallop, clicks GI/Abdominal exam: Present: soft, normal bowel sounds. Absent: distended, tenderness, guarding, rebound, rigid Extremities exam: Present: normal inspection Back exam: Present: normal inspection Neurological exam: Present: alert, oriented X3, CN II-XII intact Psychiatric exam: Present: normal affect, normal mood Skin exam: Present: warm, dry, intact, normal color. Absent: rash Course Vital Signs 12/10/18 12/10/18 12/10/18 12:41 13:40 15:03 Temperature 98.8 F 97.7 F Pulse Rate 79 86 64 Respiratory 18 16 16 Rate Blood Pressure 143/84 126/84 112/63 O2 Sat by Pulse 99 98 98 Oximetry 12/10/18 16:29 Temperature Pulse Rate 77 Respiratory 18 Rate Blood Pressure 119/88 O2 Sat by Pulse 97 Oximetry Medical Decision Making - Medical Decision Making 8 rolled female presents with lower back pain range on the left flank and left leg. Patient was sent in for CT of her abdomen and pelvis with contrast for concern for hematuria. This time she is given IV fluids labwork obtained. She has a mild urinary tract infection and hematuria and white blood cells noted. She has a history of hysterectomy. CT and pulses left ovarian cyst. Left renal calculus measuring 2 mm. There is also some incidental finding of omental inflammatory change which is decreased from her last CT due to the 16. Patient's pain seems to be somewhat worse with movement concern for muscular skeletal nature. Discussed it also components could be related to ovarian cyst or a slight urinary tract infection. Urine culture is completed. In the meantime Patient received IV Rocephin and I discharged the Patient with a prescription for Macrobid for outpatient UTI. I discussed that she had prompt follow-up with orthopedic transfer specialist as well as primary care doctor. All questions were answered return parameters were discussed. - Lab Data Result diagrams: 12/10/18 13:35 12/10/18 13:35 Lab Results 12/10/18 12/10/18 12/10/18 Range/Units 13:35 13:35 13:35 WBC 6.0 (3.8-10.6) k/uL RBC 4.71 (3.80-5.40) m/uL Hgb 12.2 (11.4-16.0) gm/dL Hct 37.7 (34.0-46.0) % MCV 80.0 (80.0-100.0) fL MCH 25.8 (25.0-35.0) pg MCHC 32.3 (31.0-37.0) g/dL RDW 14.8 (11.5-15.5) % Plt Count 306 (150-450) k/uL Neutrophils % 63 % Lymphocytes % 26 % Monocytes % 6 % Eosinophils % 2 % Basophils % 0 % Neutrophils # 3.8 (1.3-7.7) k/uL Lymphocytes # 1.6 (1.0-4.8) k/uL Monocytes # 0.4 (0-1.0) k/uL Eosinophils # 0.1 (0-0.7) k/uL Basophils # 0.0 (0-0.2) k/uL PT (9.0-12.0) sec INR (<1.2) APTT (22.0-30.0) sec Sodium 140 (137-145) mmol/L Potassium 4.4 (3.5-5.1) mmol/L Chloride 108 H (98-107) mmol/L Carbon Dioxide 22 (22-30) mmol/L Anion Gap 10 mmol/L BUN 13 (7-17) mg/dL Creatinine 0.63 (0.52-1.04) mg/dL Est GFR (CKD-EPI)AfAm >90 (>60 ml/min/1.73 sqM) Est GFR (CKD-EPI)NonAf >90 (>60 ml/min/1.73 sqM) Glucose 119 H (74-99) mg/dL Calcium 9.2 (8.4-10.2) mg/dL Total Bilirubin 0.3 (0.2-1.3) mg/dL AST 18 (14-36) U/L ALT 16 (9-52) U/L Alkaline Phosphatase 57 (38-126) U/L Total Protein 6.5 (6.3-8.2) g/dL Albumin 3.9 (3.5-5.0) g/dL Amylase 44 (30-110) U/L Lipase 147 (23-300) U/L Urine Color Yellow Urine Appearance Cloudy H (Clear) Urine pH 6.5 (5.0-8.0) Ur Specific [place] 1.022 (1.001-1.035) Urine Protein Negative (Negative) Urine Glucose (UA) Negative (Negative) Urine Ketones Negative (Negative) Urine Blood Small H (Negative) Urine Nitrite Negative (Negative) Urine Bilirubin Negative (Negative) Urine Urobilinogen <2.0 (<2.0) mg/dL Ur Leukocyte Esterase Negative (Negative) Urine RBC 12 H (0-5) /hpf Urine WBC 7 H (0-5) /hpf Ur Squamous Epith Cells 3 (0-4) /hpf Urine Mucus Rare H (None) /hpf 12/10/18 Range/Units 13:35 WBC (3.8-10.6) k/uL RBC (3.80-5.40) m/uL Hgb (11.4-16.0) gm/dL Hct (34.0-46.0) % MCV (80.0-100.0) fL MCH (25.0-35.0) pg MCHC (31.0-37.0) g/dL RDW (11.5-15.5) % Plt Count (150-450) k/uL Neutrophils % % Lymphocytes % % Monocytes % % Eosinophils % % Basophils % % Neutrophils # (1.3-7.7) k/uL Lymphocytes # (1.0-4.8) k/uL Monocytes # (0-1.0) k/uL Eosinophils # (0-0.7) k/uL Basophils # (0-0.2) k/uL PT 9.9 (9.0-12.0) sec INR 0.9 (<1.2) APTT 29.6 (22.0-30.0) sec Sodium (137-145) mmol/L Potassium (3.5-5.1) mmol/L Chloride (98-107) mmol/L Carbon Dioxide (22-30) mmol/L Anion Gap mmol/L BUN (7-17) mg/dL Creatinine (0.52-1.04) mg/dL Est GFR (CKD-EPI)AfAm (>60 ml/min/1.73 sqM) Est GFR (CKD-EPI)NonAf (>60 ml/min/1.73 sqM) Glucose (74-99) mg/dL Calcium (8.4-10.2) mg/dL Total Bilirubin (0.2-1.3) mg/dL AST (14-36) U/L ALT (9-52) U/L Alkaline Phosphatase (38-126) U/L Total Protein (6.3-8.2) g/dL Albumin (3.5-5.0) g/dL Amylase (30-110) U/L Lipase (23-300) U/L Urine Color Urine Appearance (Clear) Urine pH (5.0-8.0) Ur Specific [place] (1.001-1.035) Urine Protein (Negative) Urine Glucose (UA) (Negative) Urine Ketones (Negative) Urine Blood (Negative) Urine Nitrite (Negative) Urine Bilirubin (Negative) Urine Urobilinogen (<2.0) mg/dL Ur Leukocyte Esterase (Negative) Urine RBC (0-5) /hpf Urine WBC (0-5) /hpf Ur Squamous Epith Cells (0-4) /hpf Urine Mucus (None) /hpf - Radiology Data Radiology results: report reviewed Focal areas soft tissue stranding in the right upper omentum shows decreasing size compared to 2016. Patient's has a punctate 2 mm obstructing left renal calculus. Status post Magaly-en-Y gastric bypass spent likely. 3.4 some abdomi nal follicle or functional cyst in left ovary. Disposition Clinical Impression: UTI (urinary tract infection), Left ovarian cyst, Back pain Disposition: HOME SELF-CARE Condition: Good Instructions (If sedation given, give patient instructions): Urinary Tract Infection in Women (ED), Lumbar Radiculopathy (ED) Additional Instructions: Patient is advised to follow-up with primary care doctor. Continue to follow-up with hospitality specialist. Patient can take the antibiotic. Minor UTI as prescribed. Return to the emergency department if any alarming signs or symptoms occur. Prescriptions: Nitrofurantoin Monohyd/M-Cryst [Macrobid] 100 mg PO Q12HR #14 cap traMADol HCl [Ultram] 50 mg PO Q6HR PRN 3 Days #12 tab PRN Reason: Pain Is patient prescribed a controlled substance at d/c from ED?: No Referrals: Aurelio Miller Jr, DO [Primary Care Provider] - 1-2 days Time of Disposition: 16:14
--- NOTE | 2018-12-10 14:52 | CT ---
EXAMINATION TYPE: CT abdomen pelvis wo con DATE OF EXAM: 12/10/2018 COMPARISON: 05/18/2016 HISTORY: 38-year-old female Low back pain, radiating down legs CT DLP: 1350.9 mGycm. Automated exposure control for dose reduction was used. TECHNIQUE: Contiguous axial scanning of the abdomen and pelvis without IV contrast. Coronal and sagit mariola reconstructions performed. FINDINGS: Heart normal size without pericardial effusion. Lung bases clear without pleural effusion. Postsurgical changes of Magaly-en-Y gastric bypass. Prominent diaphragmatic slip along the right hepatic dome. Liver is enlarged at 21.0 cm. Noncontrast appearance of the gallbladder, adrenal glands, right kidney, spleen, pancreas show no rolan ss or pneumonia. Punctate 2 mm nonobstructive left renal calculus. No dilated small bowel, free fluid, or free air. No mesenteric or retroperitoneal lymphadenopathy seen. Normal appendix. Mild stool burden. No pericolonic inflammatory change. Bladder nondistended. Uterus surgically absent. Cystic lesion within the left ovary measures 3.4 cm, likely dominant follicle/functional cyst. Right ovary is visualized. No abnormal fluid collection in the pelvis or pelvic lymphadenopathy. Focal area of soft tissue stranding in the upper right omentum region just below the left liver lobe is overall decreased from prior currently measuring up to 2.5 cm versus 3.7 cm, previously. The addit ional areas have resolved just adjacent. Bones: Mild degenerative spurring at the hips. Degenerative disc disease L5-S1 with facet arthropathy lower lumbar spine. Disc bulge at L4-L5. Redemonstrated limbus vertebra L4. IMPRESSION: 1. Focal area of soft tissue stranding in the right upper omentum shows decreasing size compared to 2016 suggesting a chronic postinflammatory etiology which is gradually improving. 2. Punctate 2 mm nonobstructive left renal calculus. Status post Magaly-en-Y gastric bypass. Hepatomegaly (21.0 cm). A 3.4 cm dominant follicle or functiona l cyst in the left ovary.
[2018-12-10 15:04] VITALS: TEMP 97.7
[2018-12-10] MEDS ORDERED: cefTRIAXone IN SWFI 1,000 MG/10 ML SYRINGE IVP STA (15:29)
[2018-12-10] MEDS ORDERED: HYDROmorphone 1 MG/ML 1 ML SYRINGE IVP PRN (16:01)
[2018-12-10] MEDS ORDERED: HYDROmorphone 1 MG/ML 1 ML SYRINGE IVP STA (16:27)
[2018-12-10 16:30] VITALS: BP 119/88; PULSE 77; RESP 18
[2018-12-10] MEDS ORDERED: ONDANSETRON 4 MG/2 ML VIAL IVP STA (16:33)
== END 2018-12-10 17:32 | disposition home or self-care (01) ==
LOC: EC 12:30
DX: N39.0 Urinary tract infection, site not specified (principal); N83.202 Unspecified ovarian cyst, left side; N20.0 Calculus of kidney; K66.8 Other specified disorders of peritoneum; M54.41 Lumbago with sciatica, right side; F32.9 Major depressive disorder, single episode, unspecified; Z88.0 Allergy status to penicillin; Z88.2 Allergy status to sulfonamides; Z88.5 Allergy status to narcotic agent; Z88.8 Allergy status to other drugs, medicaments and biological substances; Z91.040 Latex allergy status; Z79.899 Other long term (current) drug therapy; Z86.2 Personal history of diseases of the blood and blood-forming organs and certain disorders involving the immune mechanism; Z98.84 Bariatric surgery status; Z90.710 Acquired absence of both cervix and uterus
CPT/HCPCS: 36415; 80053; 82150; 83690; 85025; 85610; 85730; 81001; 87086; 74176; 99285; 96374; 96375 ×4; 96361 ×3; J2270; J2405; J0696; J1885; J1170

== ENCOUNTER → 2018-12-19 | Outpatient (CLI) | payer OTHER ==
--- NOTE | 2018-12-19 14:29 | CT ---
EXAMINATION TYPE: CT abdomen pelvis wo con DATE OF EXAM: 12/19/2018 COMPARISON: 12/10/2018 INDICATION: Back pain, hematuria DLP: 1914.9 mGycm, Automated exposure control for dose reduction was used. CONTRAST: 0 mL of Isovue 300. Study performed without Oral Contrast TECHNIQUE: Axial images were obtained from above the diaphragm to the pubic rami in the axial plane a t 5 mm thick sections. Reconstructed images are reviewed on the computer in the coronal plane. FINDINGS: Limited CT sections are obtained the lung bases. The lung bases are clear. CT ABDOMEN: Postsurgical changes are through the stomach. There is some inflammatory changes just medial to the right tip of the liver. Series 3 image 55. This is just superior to the hepatic flexure. A small diverticulum appears to be nearby. Acute diverticul itis may be present. No abscess formation is evident. No free air is evident. Liver: Normal Spleen: Normal Pancreas: Normal Adrenal glands: The adrenal glands are normal. Gallbladder: Normal Kidneys: No masses are evident. No hydronephrosis is present. No hydroureter is present. No cysts ar e present. There is a 0.2 cm nonobstructing renal stone superior pole left kidney. Aorta: Normal Inferior vena cava: Normal. CT PELVIS: No additional suspicious diverticular changes are evident within the colon. Small bowel loops are non dilated. The study is performed without oral contrast limiting bowel evaluation. Appendix: Normal as visualized. Urinary bladder: Normal. Genitourinary structures: Uterus is not identified. Adnexal regions appear unremarkable. Osseous structures: No suspicious lytic or sclerotic lesions. Spondylolysis of S1 is present vacuum d isc changes are present L4-5 IMPRESSIONS: 1. Nonobstructing 0.2 cm renal stone inferior pole left kidney. 2. Inflammatory change without abscess formation superior to the hepatic flexure suspicious for some focal acute diverticulitis 3. Spondylolysis of left S1 pars.
[2018-12-19 17:16] LABS: Basophils % (A) 0 %; Eosinophils # (A) 0.3 k/uL (0-0.7); Eosinophils % (A) 5 %; HCT 38.8 % (34.0-46.0); HGB 12.1 gm/dL (11.4-16.0); Hypochromasia Slight; Lymphocytes # (A) 1.2 k/uL (1.0-4.8); Lymphocytes % (A) 20 %; MCH 25.4 pg (25.0-35.0); MCHC 31.2 g/dL (31.0-37.0); MCV 81.5 fL (80.0-100.0); Mean Platelet Volume 6.4; Monocytes # (A) 0.2 k/uL (0-1.0); Monocytes % (A) 3 %; Neutrophils # (A) 4.2 k/uL (1.3-7.7); Neutrophils % (A) 70 %; Platelet Count 261 k/uL (150-450); RBC 4.76 m/uL (3.80-5.40); WBC 6.1 k/uL (3.8-10.6)
[2018-12-19 17:31] LABS: ALT 23 U/L (9-52); AST 17 U/L (14-36); African American GFR (CKD) >90 (>60 ml/min/1.73 sqM); Albumin 4.4 g/dL (3.5-5.0); Alkaline Phosphatase 80 U/L (38-126); Amylase 38 U/L (30-110); Anion Gap 11 mmol/L; Blood Urea Nitrogen 10 mg/dL (7-17); Calcium 9.4 mg/dL (8.4-10.2); Carbon Dioxide 23 mmol/L (22-30); Chloride 108 mmol/L (98-107); Glucose 117 mg/dL (74-99); Lipase 139 U/L (23-300); Potassium 4.3 mmol/L (3.5-5.1); Sodium 142 mmol/L (137-145); Total Bilirubin 0.3 mg/dL (0.2-1.3); Total Protein 7.1 g/dL (6.3-8.2)
== END | disposition home or self-care (01) ==
LOC: RADCTMAIN 13:28
PROVIDERS: ATTEND Nurse Practitioner Family
DX: M54.5 Low back pain (principal); N20.0 Calculus of kidney; K52.9 Noninfective gastroenteritis and colitis, unspecified; Z88.0 Allergy status to penicillin; Z88.1 Allergy status to other antibiotic agents; Z88.2 Allergy status to sulfonamides; E11.9 Type 2 diabetes mellitus without complications; K57.32 Diverticulitis of large intestine without perforation or abscess without bleeding
CPT/HCPCS: 74176; 80053; 82150; 83690; 85025

== ENCOUNTER 2018-12-21 12:35 | Emergency (ER) | payer OTHER ==
[2018-12-21] MEDS ORDERED: SODIUM CHLORIDE 0.9% 1,000 ML IV STA ×2 (13:02→13:40)
[2018-12-21 13:08] VITALS: TEMP 98.5
[2018-12-21] MEDS ORDERED: ONDANSETRON 4 MG/2 ML VIAL IVP STA (13:40)
[2018-12-21] MEDS ORDERED: KETOROLAC 30 MG/ML 1 ML VIAL IVP STA (13:41)
--- NOTE | 2018-12-21 13:46 | ED ---
General Adult HPI - General Chief complaint: Abdominal Pain Stated complaint: Abd Pain Time Seen by Provider: 12/21/18 13:01 Source: patient, RN notes reviewed Mode of arrival: ambulatory Limitations: no limitations - History of Present Illness Initial comments: 38-year-old female with a past medical history of hyperlipidemia, hepatic steatosis, gastric bypass performed [address] Salinas presents to the emergency determine for nausea vomiting diarrhea and abdominal pain 9 days. Patient states she was seen here on 12/10/2018 for left-sided abdominal pain and was diagnosed a kidney stones and urinary tract infection. States that she then developed nausea vomiting and diarrhea. States that she saw her primary care provider and had a computed tomography scan 2 days ago which showed possible diverticulitis and was started on Cipro and Flagyl. States that this seems to be making her more worse. States that she spiked a temperature of 102 last night. States she is till nauseous but is now dry heaving. States she is still having diarrhea anytime she eats something. Patient has no other complaints at this time including shortness of breath, chest pain, headache, or visual changes. - Related Data Home Medications Medication Instructions Recorded Confirmed Azithromycin [Zithromax] 250 mg PO DAILY 12/10/18 12/10/18 Hydrocodone/Acetaminophen [[place] 1 tab PO Q8H PRN 12/10/18 12/10/18 5-325] Methocarbamol [Robaxin] 500 mg PO HS 12/10/18 12/10/18 Sertraline [Zoloft] 50 mg PO HS 12/10/18 12/10/18 Previous Rx's Medication Instructions Recorded Nitrofurantoin Monohyd/M-Cryst 100 mg PO Q12HR #14 cap 12/10/18 [Macrobid] traMADol HCl [Ultram] 50 mg PO Q6HR PRN 3 Days #12 tab 12/10/18 Ondansetron [Zofran ODT] 4 mg PO Q8HR PRN #15 tab 12/21/18 Allergies Allergy/AdvReac Type Severity Reaction Status Date / Time amoxicillin AdvReac flu like Verified 12/21/18 12:53 symptoms codeine AdvReac Nausea Verified 12/21/18 12:53 latex AdvReac pain and Verified 12/21/18 12:53 itching metformin AdvReac DIARRHEA Verified 07/13/19 12:53 AND FLU LIKE SYMPTOMS Penicillins AdvReac flu like Verified 12/21/18 12:53 symptoms Sulfa (Sulfonamide AdvReac flu like Verified 12/21/18 12:53 Antibiotics) symptoms Review of Systems ROS Statement: Those systems with pertinent positive or pertinent negative responses have been documented in the HPI. ROS Other: All systems not noted in ROS Statement are negative. Past Medical History Past Medical History: Hyperlipidemia, Liver Disease Additional Past Medical History / Comment(s): Fatty liver,hx difficulty swallowing, no tx. for diabetes anymore. Left face numbness 01/16/16, red raised rash on arms and legs-went to ER History of Any Multi-Drug Resistant Organisms: None Reported Past Surgical History: Bariatric Surgery, Section, Hysterectomy, Tonsillectomy, Uterine Ablation Additional Past Surgical History / Comment(s): exploratory lower abdominal laparoscopy.10-11-15 lap brenda en y, recent EGD Past Anesthesia/Blood Transfusion Reactions: No Reported Reaction Additional Past Anesthesia/Blood Transfusion Reaction / Comment(s): claustrophobia Past Psychological History: Depression Smoking Status: Never smoker Past Alcohol Use History: None Reported Past Drug Use History: None Reported - Past Family History Mother Family Medical History: Congestive Heart Failure (CHF), Fibromyalgia Additional Family Medical History / Comment(s): at 43 from heart failu re General Exam Limitations: no limitations General appearance: alert, in no apparent distress Head exam: Present: atraumatic, normocephalic, normal inspection Eye exam: Present: normal appearance, PERRL, EOMI. Absent: scleral icterus, conjunctival injection, periorbital swelling ENT exam: Present: normal exam, mucous membranes moist Neck exam: Present: normal inspection, full ROM. Absent: tenderness, meningismus, lymphadenopathy Respiratory exam: Present: normal lung sounds bilaterally. Absent: respiratory distress, wheezes, rales, rhonchi, stridor Cardiovascular Exam: Present: regular rate, normal rhythm, normal heart sounds. Absent: systolic murmur, diastolic murmur, rubs, gallop, clicks GI/Abdominal exam: Present: soft, tenderness (RUQ tenderness), normal bowel sounds. Absent: distended, guarding, rebound, rigid Neurological exam: Present: alert, oriented X3, CN II-XII intact Psychiatric exam: Present: normal affect, normal mood Course Vital Signs 12/21/18 12/21/18 12:53 17:14 Temperature 98.5 F Pulse Rate 71 67 Respiratory 18 16 Rate Blood Pressure 114/79 139/84 O2 Sat by Pulse 97 98 Oximetry - Reevaluation(s) Reevaluation #1: 12/21/18 15:06 Patient was marked ready for ultrasound at 1347 and was marked as ready at 1506. Reevaluation #2: 12/21/18 15:38 Recent CAT scan studies from 12/10/2018 and 12/19/2018 were reviewed and are as follows. CT from about 12 days ago on 12/10/2018 shows a focal area of soft tissue stranding in the right upper omentum decreased size compared to 2016 suggesting a chronic postinflammatory etiology which is gradually improving. Nonobstructing left renal calculus. Status post Brenda-en-Y gastric bypass. Comp uted tomography scan from 2 days ago on 12/19/2018 shows some inflammatory changes just medial to the right hip of the liver and just superior to the hepatic flexure. Acute diverticulitis may be present. No abscess formation is evident. Medical Decision Making - Medical Decision Making 38-year-old female with a past medical history of hyperlipidemia next ear ptosis, gastric bypass presents to the emergency department for nausea vomiting diarrhea and some abdominal pain for 9 days. States the pain is more discomfort than true pain. States every time she eats she has diarrhea and becomes nauseous. States she is no longer vomiting. Today CBC is unremarkable. CMP within normal limits. Urinalysis shows 15 red blood cells, no evidence of infection. There is 1+ ketones, patient given 2 L of fluid. Patient had 2 CTs in the past 12 days. Both showed some stranding in the right upper omentum which has been present since 2016. Patient was diagnosed with possible acute diverticulitis and put on Flagyl and Rocephin 2 days ago. She thinks that these antibiotics could be making her worse. Ultrasound was obtained which showed gal lstones and probable gallbladder wall polyps. I spoke to that design engineering technician who does believe there was a positive sonographic Gallagher sign. Patient reevaluated, is feeling better after nausea medicine and pain medicine. Patient requests a change in antibiotics for possible diverticulitis however is ALLERGIC to Augmentin, will maintain Cipro and Flagyl until she sees surgery at her appointment in 4 days. Patient has an appointment in 4 days with her surgeon and will follow-up at that time for gallstones as well as persistent nausea and diverticulitis. She will return usually is any worsening symptoms. Discussed case with attending provider Dr Fung. - Lab Data Result diagrams: 12/21/18 13:30 12/21/18 13:30 Lab Results 12/21/18 12/21/18 12/21/18 Range/Units 13:30 13:30 13:30 WBC 4.4 (3.8-10.6) k/uL RBC 4.51 (3.80-5.40) m/uL Hgb 11.5 (11.4-16.0) gm/dL Hct 36.5 (34.0-46.0) % MCV 81.1 (80.0-100.0) fL MCH 25.5 (25.0-35.0) pg MCHC 31.5 (31.0-37.0) g/dL RDW 14.9 (11.5-15.5) % Plt Count 231 (150-450) k/uL Neutrophils % 65 % Lymphocytes % 20 % Monocytes % 5 % Eosinophils % 8 % Basophils % 0 % Neutrophils # 2.9 (1.3-7.7) k/uL Lymphocytes # 0.9 L (1.0-4.8) k/uL Monocytes # 0.2 (0-1.0) k/uL Eosinophils # 0.3 (0-0.7) k/uL Basophils # 0.0 (0-0.2) k/uL Sodium 139 (137-145) mmol/L Potassium 4.3 (3.5-5.1) mmol/L Chloride 108 H (98-107) mmol/L Carbon Dioxide 21 L (22-30) mmol/L Anion Gap 10 mmol/L BUN 8 (7-17) mg/dL Creatinine 0.53 (0.52-1.04) mg/dL Est GFR (CKD-EPI)AfAm >90 (>60 ml/min/1.73 sqM) Est GFR (CKD-EPI)NonAf >90 (>60 ml/min/1.73 sqM) Glucose 106 H (74-99) mg/dL Plasma Lactic Acid Ulises 0.8 (0.7-2.0) mmol/L Calcium 8.8 (8.4-10.2) mg/dL Total Bilirubin 0.4 (0.2-1.3) mg/dL AST 34 (14-36) U/L ALT 28 (9-52) U/L Alkaline Phosphatase 61 (38-126) U/L Total Protein 6.7 (6.3-8.2) g/dL Albumin 4.1 (3.5-5.0) g/dL Amylase 32 (30-110) U/L Lipase 91 (23-300) U/L Urine Color Urine Appearance (Clear) Urine pH (5.0-8.0) Ur Specific [place] (1.001-1.035) Urine Protein (Negative) Urine Glucose (UA) (Negative) Urine Ketones (Negative) Urine Blood (Negative) Urine Nitrite (Negative) Urine Bilirubin (Negative) Urine Urobilinogen (<2.0) mg/dL Ur Leukocyte Esterase (Negative) Urine RBC (0-5) /hpf Urine WBC (0-5) /hpf Ur Squamous Epith Cells (0-4) /hpf Urine Bacteria (None) /hpf Urine Mucus (None) /hpf Urine HCG, Qual (Not Detectd) 12/21/18 12/21/18 Range/Units 13:30 13:30 WBC (3.8-10.6) k/uL RBC (3.80-5.40) m/uL Hgb (11.4-16.0) gm/dL Hct (34.0-46.0) % MCV (80.0-100.0) fL MCH (25.0-35.0) pg MCHC (31.0-37.0) g/dL RDW (11.5-15.5) % Plt Count (150-450) k/uL Neutrophils % % Lymphocytes % % Monocytes % % Eosinophils % % Basophils % % Neutrophils # (1.3-7.7) k/uL Lymphocytes # (1.0-4.8) k/uL Monocytes # (0-1.0) k/uL Eosinophils # (0-0.7) k/uL Basophils # (0-0.2) k/uL Sodium (137-145) mmol/L Potassium (3.5-5.1) mmol/L Chloride (98-107) mmol/L Carbon Dioxide (22-30) mmol/L Anion Gap mmol/L BUN (7-17) mg/dL Creatinine (0.52-1.04) mg/dL Est GFR (CKD-EPI)AfAm (>60 ml/min/1.73 sqM) Est GFR (CKD-EPI)NonAf (>60 ml/min/1.73 sqM) Glucose (74-99) mg/dL Plasma Lactic Acid Ulises (0.7-2.0) mmol/L Calcium (8.4-10.2) mg/dL Total Bilirubin (0.2-1.3) mg/dL AST (14-36) U/L ALT (9-52) U/L Alkaline Phosphatase (38-126) U/L Total Protein (6.3-8.2) g/dL Albumin (3.5-5.0) g/dL Amylase (30-110) U/L Lipase (23-300) U/L Urine Color Yellow Urine Appearance Cloudy H (Clear) Urine pH 6.0 (5.0-8.0) Ur Specific [place] 1.023 (1.001-1.035) Urine Protein Trace H (Negative) Urine Glucose (UA) Negative (Negative) Urine Ketones 1+ H (Negative) Urine Blood Trace H (Negative) Urine Nitrite Negative (Negative) Urine Bilirubin Negative (Negative) Urine Urobilinogen <2.0 (<2.0) mg/dL Ur Leukocyte Esterase Trace H (Negative) Urine RBC 15 H (0-5) /hpf Urine WBC 1 (0-5) /hpf Ur Squamous Epith Cells 14 H (0-4) /hpf Urine Bacteria Rare H (None) /hpf Urine Mucus Moderate H (None) /hpf Urine HCG, Qual Not Detected (Not Detectd) Disposition Clinical Impression: Nausea vomiting and diarrhea, Gallstones Disposition: HOME SELF-CARE Condition: Good Instructions (If sedation given, give patient instructions): Diverticulitis (ED), Gallstones (ED), Acute Nausea and Vomiting (ED) Additional Instructions: Please follow-up with your surgeon Dr. Jackson in one to two days. Return here to the emergency department if you have any worsening symptoms. Prescriptions: Ondansetron [Zofran ODT] 4 mg PO Q8HR PRN #15 tab PRN Reason: Nausea Is patient prescribed a controlled substance at d/c from ED?: No Referrals: Aurelio Miller Jr, DO [Primary Care Provider] - 1-2 days Margaret Jackson MD [STAFF PHYSICIAN] - 1-2 days Time of Disposition: 16:39
[2018-12-21 13:57] LABS: Basophils % (A) 0 %; Eosinophils # (A) 0.3 k/uL (0-0.7); Eosinophils % (A) 8 %; HCT 36.5 % (34.0-46.0); HGB 11.5 gm/dL (11.4-16.0); Lymphocytes # (A) 0.9 k/uL (1.0-4.8); Lymphocytes % (A) 20 %; MCH 25.5 pg (25.0-35.0); MCHC 31.5 g/dL (31.0-37.0); MCV 81.1 fL (80.0-100.0); Mean Platelet Volume 6.6; Monocytes # (A) 0.2 k/uL (0-1.0); Monocytes % (A) 5 %; Neutrophils # (A) 2.9 k/uL (1.3-7.7); Neutrophils % (A) 65 %; Platelet Count 231 k/uL (150-450); RBC 4.51 m/uL (3.80-5.40); RDW 14.9 % (11.5-15.5); WBC 4.4 k/uL (3.8-10.6)
[2018-12-21 14:12] LABS: ALT 28 U/L (9-52); AST 34 U/L (14-36); African American GFR (CKD) >90 (>60 ml/min/1.73 sqM); Albumin 4.1 g/dL (3.5-5.0); Alkaline Phosphatase 61 U/L (38-126); Amylase 32 U/L (30-110); Anion Gap 10 mmol/L; Blood Urea Nitrogen 8 mg/dL (7-17); Calcium 8.8 mg/dL (8.4-10.2); Carbon Dioxide 21 mmol/L (22-30); Chloride 108 mmol/L (98-107); Glucose 106 mg/dL (74-99); Lipase 91 U/L (23-300); Potassium 4.3 mmol/L (3.5-5.1); Sodium 139 mmol/L (137-145); Total Bilirubin 0.4 mg/dL (0.2-1.3); Total Protein 6.7 g/dL (6.3-8.2)
[2018-12-21 14:22] LABS: Appearance,Urine Cloudy (Clear); Bacteria,Urine Rare /hpf; Bilirubin,Urine Negative (Negative); Blood,Urine Trace (Negative); Color,Urine Yellow; Glucose,Urine (UA) Negative (Negative); Ketones,Urine 1+ (Negative); Leukocyte Esterase,Urine Trace (Negative); Mucus,Urine Moderate /hpf; Nitrite,Urine Negative (Negative); Protein,Urine Trace (Negative); RBC,Urine 15 /hpf (0-5); Specific Gravity,Urine 1.023 (1.001-1.035); Squamous Epithelial Cell,Urine 14 /hpf (0-4); Urobilinogen,Urine <2.0 mg/dL (<2.0); WBC,Urine 1 /hpf (0-5)
[2018-12-21] MEDS ORDERED: cefTRIAXone IN SWFI 1,000 MG/10 ML SYRINGE IVP STA (15:17)
--- NOTE | 2018-12-21 16:03 | US ---
EXAMINATION TYPE: US abdomen limited DATE OF EXAM: 12/21/2018 COMPARISON: CT CLINICAL HISTORY: pain, NVD generalized abdominal pain, nausea, diarrhea, vomiting, fever and chills x 9 days per patient; recent diverticulitis per patient EXAM MEASUREMENTS: Liver Length: 19.4 cm Gallbladder Wall: 0.2 cm CBD: 0.3 cm Right Kidney: 10.8 x 5.7 x 4.5 cm Pancreas: hyperechoic Liver: enlarged Gallbladder: multiple, mobile shadowing stones; couple of gallbladder wall polyps Evidence for sonographic Gallagher's sign: yes CBD: wnl Right Kidney: No hydronephrosis or masses seen IMPRESSION: 1. Gallstones and probable gallbladder wall polyps. 2. There is no sonographic Gallagher sign present. Clinical consideration for cholecystitis is recommend ed. 3. Hepatomegaly
[2018-12-21 17:15] VITALS: BP 139/84; PULSE 67; RESP 16
== END 2018-12-21 17:15 | disposition home or self-care (01) ==
LOC: EC 12:35
DX: K80.20 Calculus of gallbladder without cholecystitis without obstruction (principal); R19.7 Diarrhea, unspecified; F32.9 Major depressive disorder, single episode, unspecified; Z79.899 Other long term (current) drug therapy; Z88.0 Allergy status to penicillin; Z88.2 Allergy status to sulfonamides; Z88.5 Allergy status to narcotic agent; Z91.040 Latex allergy status; Z88.8 Allergy status to other drugs, medicaments and biological substances; Z98.84 Bariatric surgery status; Z90.710 Acquired absence of both cervix and uterus
CPT/HCPCS: 36415; 80053; 82150; 83605; 83690; 85025; 81001; 81025; 87040; 76705; 99284; 96374; 96375 ×2; 96361; J2405; J0696; J1885

== ENCOUNTER → 2018-12-25 | Outpatient (CLI) | payer OTHER ==
[2018-12-25 16:09] VITALS: BP 119/74; PULSE 71; RESP 16; TEMP 98.3; BMI 46.8
--- NOTE | 2018-12-25 16:50 | P.PN ---
Subjective Progress Note Date: 12/25/18 DATE OF SERVICE: 12/25/2018 CHIEF COMPLAINT: Abdominal pain HISTORY OF PRESENT ILLNESS: Candice Avery is a 38-year-old female who is status post Magaly-en-Y gastric bypass in October 2015. She is 3 years out. She has been lost to follow up for over 1 year. She comes in with new weight gain after eating the wrong foods. She reports being placed back on diabetic medications with her moderate weight gain. She has regained almost all of her weight. She was not seeing any doctors for over 1 year. She has not had any treatment or medications during that time frame. She reports vomiting and diarrhea. She has developed kidney stones and urinary tract infection. She had diverticulitis. She reports gallstones and kidney stones as well. She reports emesis with burping. She has not had an EGD. At the height of 5 feet 1-1/2 inches, her highest weight was 293 pounds. Today she comes in weighing 251 pounds from 216 pounds, 1 year ago. She has gained 35 pounds in 1 year. Since her moderate weight loss to 177 pounds, she has regained 74 pounds in 2+ years. Her ideal body weight is 131 pounds. She has lost 42 pounds from inital 116 pounds weight loss. She has achieved 26% excess weight loss. Body mass index is reduced from 54.6 down to 46.8. She is overweight by 120 pounds. PAST MEDICAL HISTORY: 1. Diabetes type 2, resolved. 2. Hypertension, resolved. 3. Fatty liver disease. 4. Hypothyroidism. 5. Morbid obesity due to excess calories, BMI 54.6 6. Gastroesophageal disease, resolved. 7. Panniculitis. PAST SURGICAL HISTORY: 1. x4. 2. Hysterectomy. 3. Endoscopy. 4. Uterine ablation. 5. Repeat upper endoscopy with balloon dilatation. 6. Gastric Bypass. MEDICATIONS: Home Medications Medication Instructions Recorded Confirmed Sertraline [Zoloft] 50 mg PO HS 12/10/18 12/25/18 Previous Rx's Medication Instructions Recorded Cyclobenzaprine [Flexeril] 10 mg PO TID PRN #15 tab 02/19/19 ALLERGIES: 1. AMOXICILLIN. 2. LATEX. 3. PENICILLIN. 4. SULFA. 5. CODEINE. 6. METFORMIN. SOCIAL HISTORY: No tobacco use. FAMILY HISTORY: Family history is pertinent for gallbladder disease. Also notable for heart disease. REVIEW OF SYSTEMS: CONSTITUTIONAL: At the height of 5 feet 1-1/2 inches, her highest weight was 293 pounds. Her ideal body weight is 131 pounds. Most weight lost 116 pounds. Body mass index was 54.6 down to 32.9. ENDOCRINE: Recurrent diabetes type 2. No thyroid disorder. RESPIRATORY: Resolved obstructive sleep apnea. No recent pneumonia. CARDIOVASCULAR: Resolved hypertension. No chest pain. GASTROINTESTINAL: No reports of gastroesophageal reflux disease. No reports of dumping syndrome. MUSCULOSKELETAL: Has lower back, including bilateral hip and knee pain due to morbid obesity. HEENT: No trouble with vision or hearing. SKIN: Consistent with panniculitis. HEMATOLOGIC: No personal or family history DVT or pulmonary emboli. LYMPHATIC: The patient denies any lumps and bumps around the neck. RESPIRATORY: Denies shortness of breath including chronic cough. GENITOURINARY: Denies any blood in urine or increased urinary frequency. Previous history of kidney stones. NEUROLOGIC: Denies any numbness or tingling along the distal extremities. No seizure disorders or headaches. PSYCHIATRIC: Has depression or suicidal ideation. HEMATOLOGIC: Denies any abnormal bleeding or bruising. PHYSICAL EXAM: VITAL SIGNS: 5 foot 1.5 inch, 251 pounds. Body mass index is 46.8 Vital Signs Temp 98.3 F 12/25/18 16:04 Pulse 71 12/25/18 16:04 Resp 16 12/25/18 16:04 BP 119/74 12/25/18 16:04 Pulse Ox GENERAL: Well-developed female in no acute distress. ABDOMEN: Soft, nontender. Nondistended. HEENT: No sclera icterus. Extraocular movements grossly intact. Moist buccal mucosa. Head is atraumatic, normocephalic. Hears conversational speech. No nasal drainage. NECK: Supple without lymphadenopathy. No JV distention. CHEST: Non-labored respirations and equal bilateral excursions. CARDIOVASCULAR: Regular rate and rhythm. Palpable 2+ radial pulses. MUSCULOSKELETAL: No clubbing, cyanosis or edema. NEUROLOGIC: No focal or lateralizing signs. Cranial nerves II-12 grossly intact. PSYCH: Appropriate affect. Alert and oriented to person, place and time. SKIN: Well perfused. Good skin turgor. ASSESSMENT: 1. Morbid obesity due to excess calories, improved. 2. Body mass index reduced from 54.6 down to 46.8 3. Status post Magaly-en-Y gastric bypass. 4. Diabetes type 2, [id number] 5. Weight gain following bariatric procedure. 6. Kidney stones, new 7. Non-compliance to bariatric care 8. Gastroesophageal reflux disease 9. Dietary surveillance and counseling PLAN: 1. Recommend dietitian follow up for dietary surveillance and counseling 2. Recommend bariatric labs. 3. Recommend upper endoscopy for emesis and gastroesophageal reflux disease Laboratory Last Values WBC 5.6 k/uL (3.8-10.6) 12/25/18 17:18 RBC 4.60 m/uL (3.80-5.40) 12/25/18 17:18 Hgb 11.8 gm/dL (11.4-16.0) 12/25/18 17:18 Hct 37.7 % (34.0-46.0) 12/25/18 17:18 MCV 81.9 fL (80.0-100.0) 12/25/18 17:18 MCH 25.7 pg (25.0-35.0) 12/25/18 17:18 MCHC 31.3 g/dL (31.0-37.0) 12/25/18 17:18 RDW 15.1 % (11.5-15.5) 12/25/18 17:18 Plt Count 268 k/uL (150-450) 12/25/18 17:18 Hypochromasia Moderate 12/25/18 17:18 PT 10.2 sec (9.0-12.0) 12/25/18 17:18 INR 0.9 (<1.2) 12/25/18 17:18 APTT 29.1 sec (22.0-30.0) 12/25/18 17:18 Sodium 142 mmol/L (135-145) 12/25/18 17:18 Potassium 4.0 mmol/L (3.5-5.5) 12/25/18 17:18 Chloride 108 mmol/L (96-109) 12/25/18 17:18 Carbon Dioxide 24.4 mmol/L (21.6-31.8) 12/25/18 17:18 Anion Gap 9.60 mmol/L (4.00-12.00) 12/25/18 17:18 BUN 10.0 mg/dL (9.0-27.0) 12/25/18 17:18 Creatinine 0.6 mg/dL (0.6-1.5) 12/25/18 17:18 Est GFR (CKD-EPI)AfAm 135.9 (60.0-200.0) 12/25/18 17:18 Est GFR (CKD-EPI)NonAf 117.3 (60.0-200.0) 12/25/18 17:18 BUN/Creatinine Ratio 16.67 Ratio (12.00-20.00) 12/25/18 17:18 Glucose 103 mg/dL (70-110) 12/25/18 17:[address] Glu mg/dL 123 12/25/18 17:18 Hemoglobin A1c 5.9 % (4.0-6.0) 12/25/18 17:18 Calcium 9.0 mg/dL (8.7-10.3) 12/25/18 17:18 Phosphorus 3.3 mg/dL (2.4-5.1) 12/25/18 17:18 Magnesium 1.8 mg/dL (1.5-2.4) 12/25/18 17:18 Iron 28 ug/dL (50-170) L 12/25/18 17:18 TIBC 332 ug/dL (228-460) 12/25/18 17:18 Iron Saturation 8.43 (12.00-45.00) L 12/25/18 17:18 Ferritin 22.1 ng/mL (10.0-291.0) 12/25/18 17:18 Total Bilirubin 0.2 mg/dL (0.3-1.2) L 12/25/18 17:18 AST 32 U/L (13-35) 12/25/18 17:18 ALT 46 U/L (8-44) H 12/25/18 17:18 Alkaline Phosphatase 67 U/L (41-126) 12/25/18 17:18 Total Protein 6.3 g/dL (6.2-8.2) 12/25/18 17:18 Albumin 4.40 g/dL (3.80-4.90) 12/25/18 17:18 Globulin 1.9 g/dL (1.6-3.3) 12/25/18 17:18 Albumin/Globulin Ratio 2.32 g/dL (1.60-3.17) 12/25/18 17:18 Prealbumin 29.0 mg/dL (18.0-42.0) 12/25/18 17:18 Triglycerides 177.0 mg/dL (0.0-149.0) H 12/25/18 17:18 Cholesterol 160 mg/dL (0-200) 12/25/18 17:18 LDL Cholesterol, Calc 70.6 mg/dL (0.0-131.0) 12/25/18 17:18 VLDL Cholesterol, Calc 35.40 mg/dL (5.00-40.00) 12/25/18 17:18 HDL Cholesterol 54.0 mg/dL (40.0-60.0) 12/25/18 17:18 Cholesterol/HDL Ratio 2.96 12/25/18 17:18 Vitamin A 62 ug/dL (38-106) 12/25/18 17:18 Vitamin B1 73 ug/L (38-122) 12/25/18 17:18 Vitamin B12 230.0 pg/mL (200.0-944.0) 12/25/18 17:18 Vitamin D 25-Hydroxy 13.3 ng/mL (30.0-100.0) L 12/25/18 17:18 Folate 17.9 ng/mL 12/25/18 17:18 TSH 2.620 uIU/mL (0.350-5.500) 12/25/18 17:18 PTH Intact 76.4 pg/mL (14.0-72.0) H 12/25/18 17:18 Copper 986 ug/L (810-1990) 12/25/18 17:18 Selenium 137 mcg/L (63-160) 12/25/18 17:18 Zinc 61 ug/dL (60-130) 12/25/18 17:18 Iron is low ALT is elevated Vitamin D is low PTH is elevated Hemoglobin A1C 5.9% Objective - Vital Signs Vital signs: Vital Signs Temp 98.3 F 12/25/18 16:04 Pulse 71 12/25/18 16:04 Resp 16 12/25/18 16:04 BP 119/74 12/25/18 16:04 Pulse Ox Intake & Output 12/24/18 12/25/18 12/25/18 18:59 06:59 18:59 Weight 114.305 kg - Labs CBC & Chem 7: 12/25/18 17:18 12/25/18 17:18
[2018-12-25 17:37] LABS: HCT 37.7 % (34.0-46.0); HGB 11.8 gm/dL (11.4-16.0); Hypochromasia Moderate; MCH 25.7 pg (25.0-35.0); MCHC 31.3 g/dL (31.0-37.0); MCV 81.9 fL (80.0-100.0); Mean Platelet Volume 7.3; Platelet Count 268 k/uL (150-450); RDW 15.1 % (11.5-15.5); WBC 5.6 k/uL (3.8-10.6)
[2018-12-25 17:41] LABS: INR 0.9 (<1.2); Partial Thromboplastin Time 29.1 sec (22.0-30.0); Prothrombin Time 10.2 sec (9.0-12.0)
[2018-12-26 00:11] LABS: Iron Saturation 8.43 (12.00-45.00)
[2018-12-26 00:12] LABS: Vitamin D 25 Hydroxy 13.3 ng/mL (30.0-100.0)
[2018-12-26 00:14] LABS: African American GFR (CKD) 135.9 (60.0-200.0); Albumin 4.4 g/dL (3.80-4.90); Albumin/Globulin Ratio 2.32 (1.60-3.17); Anion Gap 9.6 mmol/L (4.00-12.00); BUN/Creat Ratio 16.67 Ratio (12.00-20.00); Carbon Dioxide 24.4 mmol/L (21.6-31.8); Chol/HDL Ratio 2.96; Folate, Serum 17.9 ng/mL; Globulin 1.9 g/dL (1.6-3.3); LDL Cholesterol,Calculated 70.6 mg/dL (0.0-131.0); Magnesium 1.8 mg/dL (1.5-2.4); Phosphorus 3.3 mg/dL (2.4-5.1); Total Bilirubin 0.2 mg/dL (0.3-1.2); Total Protein 6.3 g/dL (6.2-8.2); VLDL Calculation 35.4 mg/dL (5.00-40.00)
[2018-12-26 01:45] LABS: Hemoglobin A1C 5.9 % (4.0-6.0)
[2018-12-26 11:45] LABS: Zinc, Serum 61 ug/dL (60-130)
[2018-12-27 06:37] LABS: Vitamin A 62 ug/dL (38-106)
[2018-12-27 12:15] LABS: Vit B1(Thiamine) 73 ug/L (38-122)
[2018-12-28 20:20] LABS: Selenium 137 mcg/L (63-160)
== END | disposition home or self-care (01) ==
LOC: BARWHC3 14:59
PROVIDERS: ATTEND Surgery Plastic and Reconstructive Surgery
DX: Z48.815 Encounter for surgical aftercare following surgery on the digestive system (principal); E66.01 Morbid (severe) obesity due to excess calories; E11.9 Type 2 diabetes mellitus without complications; N20.0 Calculus of kidney; K21.9 Gastro-esophageal reflux disease without esophagitis; E21.1 Secondary hyperparathyroidism, not elsewhere classified; E89.1 Postprocedural hypoinsulinemia; D50.9 Iron deficiency anemia, unspecified; K90.9 Intestinal malabsorption, unspecified; E55.9 Vitamin D deficiency, unspecified; K76.9 Liver disease, unspecified; N19 Unspecified kidney failure; K50.90 Crohn's disease, unspecified, without complications; Z91.19 Patient's noncompliance with other medical treatment and regimen; Z71.3 Dietary counseling and surveillance; Z68.42 Body mass index [BMI] 45.0-49.9, adult; Z98.84 Bariatric surgery status; Z90.710 Acquired absence of both cervix and uterus; Z98.890 Other specified postprocedural states; Z79.899 Other long term (current) drug therapy; Z88.0 Allergy status to penicillin; Z88.2 Allergy status to sulfonamides; Z88.5 Allergy status to narcotic agent; Z88.8 Allergy status to other drugs, medicaments and biological substances
CPT/HCPCS: 84255; 84134; 84425; 80061; 80053; 82607; 82728; 82525; 82746; 83540; 83550; 83735; 84100; 84443; 84590; 84630; 85027; 85610; 85730; 82306; 83970; 83036; 36415; G0463; 99211

== ENCOUNTER 2019-01-10 20:02 | Emergency (ER) | payer OTHER ==
[2019-01-10 20:09] VITALS: BP 130/76; PULSE 95; RESP 16; TEMP 98.2
--- NOTE | 2019-01-10 21:06 | XR ---
EXAMINATION TYPE: XR foot complete LT DATE OF EXAM: 01/10/2019 CLINICAL HISTORY: Fall with subsequent pain from the third through fifth metatarsals into the fifth d igit TECHNIQUE: Frontal, lateral, and oblique images of the left foot are obtained. COMPARISON: None FINDINGS: There is no acute fracture/dislocation evident in the left foot. The joint spaces in the left foot appear within normal limits. The overlying soft tissue appears unremarkable. Moderate plan manager stars spur is incidentally seen. IMPRESSION: There is no acute fracture or dislocation in the left foot.
--- NOTE | 2019-01-10 22:04 | ED ---
General Adult HPI - General Chief complaint: Extremity Injury, Lower Stated complaint: left toe injury Time Seen by Provider: 01/10/19 20:10 Source: patient Mode of arrival: ambulatory - History of Present Illness Initial comments: Patient is a 38-year-old female presenting to emergency Department with a chief complaint of foot pain. Patient reports she lost her balance and tripped on her left foot yesterday. Patient reports midfoot tenderness but denies any fifth metatarsal tenderness. Patient denies any tenderness along the medial and lateral malleoli. Patient does report limited range of motion due to pain especially with dorsiflexion. Patient reports pain is alleviated at rest. Patient reports taking [id number] analgesics with minimal improvement. Patient denies any numbness or tingling. - Related Data Home Medications Medication Instructions Recorded Confirmed Sertraline [Zoloft] 50 mg PO HS 12/10/18 12/25/18 Allergies Allergy/AdvReac Type Severity Reaction Status Date / Time amoxicillin AdvReac flu like Verified 01/10/19 20:08 symptoms codeine AdvReac Nausea Verified 01/10/19 20:08 latex AdvReac pain and Verified 01/10/19 20:08 itching metformin AdvReac DIARRHEA Verified 01/10/19 20:08 AND FLU LIKE SYMPTOMS Penicillins AdvReac flu like Verified 01/10/19 20:08 symptoms Sulfa (Sulfonamide AdvReac flu like Verified 01/10/19 20:08 Antibiotics) symptoms Review of Systems ROS Statement: Those systems with pertinent positive or pertinent negative responses have been documented in the HPI. ROS Other: All systems not noted in ROS Statement are negative. Past Medical History Past Medical History: Hyperlipidemia, Liver Disease Additional Past Medical History / Comment(s): Fatty liver,hx difficulty swallowing, no tx. for diabetes anymore. Left face numbness 01/16/16, red raised rash on arms and legs-went to ER. Lower back pain (bulging L4-5), kidney stones, gallstones History of Any Multi-Drug Resistant Organisms: None Reported Past Surgical History: Bariatric Surgery, Section, Hysterectomy, Tonsillectomy, Uterine Ablation Additional Past Surgical History / Comment(s): exploratory lower abdominal laparoscopy.10-11-15 lap brenda en y, recent EGD Past Anesthesia/Blood Transfusion Reactions: No Reported Reaction Additional Past Anesthesia/Blood Transfusion Reaction / Comment(s): claustrophobia Past Psychological History: Depression Smoking Status: Never smoker Past Alcohol Use History: None Reported Past Drug Use History: None Reported - Past Family History Mother Family Medical History: Congestive Heart Failure (CHF), Fibromyalgia Additional Family Medical History / Comment(s): at 43 from heart failure General Exam Limitations: no limitations General appearance: alert, in no apparent distress Head exam: Present: atraumatic, normocephalic, normal inspection Eye exam: Present: normal appearance, PERRL, EOMI Pupils: Present: normal accommodation ENT exam: Present: normal exam, mucous membranes moist, normal external ear exam Neck exam: Present: normal inspection, full ROM Respiratory exam: Present: normal lung sounds bilaterally Cardiovascular Exam: Present: regular rate, normal rhythm, normal heart sounds Extremities exam: Present: tenderness (Midfoot tenderness on palpation), normal capillary refill, other (+2 dorsalis pedis and posterior tibialis bilaterally). Absent: normal inspection (Mild left midfoot edema but no erythema or ecchymosis. No abrasions or lacerations), full ROM (Limited range of motion with dorsiflexion), pedal edema, joint swelling Back exam: Present: normal inspection, full ROM Neurological exam: Present: alert, oriented X3 Psychiatric exam: Present: normal affect, normal mood Skin exam: Present: warm, intact, normal color Course Vital Signs 01/10/19 20:06 Temperature 98.2 F Pulse Rate 95 Respiratory 16 Rate Blood Pressure 130/76 O2 Sat by Pulse 98 Oximetry Procedures - Orthopedic Splinting/Casting Injury #1 Side: left Lower Extremity Injury Location: foot Lower Extremity Immobilizer: Darryl wrap Medical Decision Making - Medical Decision Making Patient is a 38-year-old female presenting to emergency Department with a chief complaint of left foot pain. X-rays are negative for acute fracture or dislocations. Darryl wrap was applied. Patient advised to avoid weightbearing on the left foot. Patient advised to follow-up with orthopedics. Patient advised to alternate between Tylenol and ibuprofen for pain control., And apply ice compresses to minimize his symptoms. Strict return parameters were thoroughly discussed with patient was understanding and agreeable. Case discussed with physician. Disposition Clinical Impression: Sprain of foot, left Disposition: HOME SELF-CARE Condition: Stable Instructions (If sedation given, give patient instructions): Foot Sprain (ED) Additional Instructions: Alternate between Tylenol and ibuprofen for pain control. White ice compress to minimize swelling. Please follow-up with orthopedics if symptoms not improved. Please return to emergency department if symptoms worsen. Is patient prescribed a controlled substance at d/c from ED?: No Referrals: Aurelio Miller Jr, [Primary Care Provider] - 1-2 days Frederic Doyle DO [Medical Doctor] - 1-2 days Time of Disposition: 22:04
== END 2019-01-10 22:33 | disposition home or self-care (01) ==
LOC: EC 20:02
DX: S93.602A Unspecified sprain of left foot, initial encounter (principal); F32.9 Major depressive disorder, single episode, unspecified; Z79.899 Other long term (current) drug therapy; Z88.0 Allergy status to penicillin; Z88.5 Allergy status to narcotic agent; Z88.2 Allergy status to sulfonamides; Z91.040 Latex allergy status; Z88.8 Allergy status to other drugs, medicaments and biological substances; Z98.84 Bariatric surgery status; W01.0XXA Fall on same level from slipping, tripping and stumbling without subsequent striking against object, initial encounter
CPT/HCPCS: 99283

== ENCOUNTER 2019-02-18 23:57 | Emergency (ER) | payer OTHER ==
[2019-02-19 00:05] VITALS: BP 148/78; PULSE 99; RESP 18; TEMP 98.9
[2019-02-19] MEDS ORDERED: LIDOCAINE 5% PATCH TOPICAL STA (00:29)
[2019-02-19] MEDS ORDERED: HYDROcodone/APAP 7.5-325MG 1 EACH TAB PO ONE (00:30)
[2019-02-19] MEDS: KETOROLAC 30 MG/ML 1 ML VIAL IVP STA ×2 (00:41→00:54)
--- NOTE | 2019-02-19 00:52 | ED ---
Back Pain HPI - General Chief Complaint: Back Pain/Injury Stated Complaint: Back pain Time Seen by Provider: 02/19/19 00:15 Source: patient Limitations: no limitations - History of Present Illness Initial Comments: Patient is a 38-year-old female presenting to emergency Department with a chief complaint of back pain. Patient reports history of chronic low back pain that she sees an forensic specialist for. Patient reports she fell today and the pain ascends has increasing severity. Patient reports the pain is located in the left paraspinal region of the lower back. Patient reports the pain radiates along the posterior aspect of the left leg to the popliteal region. Patient does report history of bilateral sciatica. Patient denies any numbness or tingling. Patient denies saddle anesthesia, urinary or bowel incontinence. Patient reports the pain is not exacerbated by specific anatomical position. Patient reports taking 2 extra strength Tylenol before coming to the emergency department. - Related Data Home Medications Medication Instructions Recorded Confirmed Sertraline [Zoloft] 50 mg PO HS 12/10/18 12/25/18 Previous Rx's Medication Instructions Recorded Cyclobenzaprine [Flexeril] 10 mg PO TID PRN #15 tab 02/19/19 Allergies Allergy/AdvReac Type Severity Reaction Status Date / Time amoxicillin AdvReac flu like Verified 02/19/19 00:05 symptoms codeine AdvReac Nausea Verified 02/19/19 00:05 latex AdvReac pain and Verified 02/19/19 00:05 itching metformin AdvReac DIARRHEA Verified 02/19/19 00:05 AND FLU LIKE SYMPTOMS Penicillins AdvReac flu like Verified 02/19/19 00:05 symptoms Sulfa (Sulfonamide AdvReac flu like Verified 02/19/19 00:05 Antibiotics) symptoms Review of Systems ROS Statement: Those systems with pertinent positive or pertinent negative responses have been documented in the HPI. ROS Other: All systems not noted in ROS Statement are negative. Past Medical History Past Medical History: Hyperlipidemia, Liver Disease Additional Past Medical History / Comment(s): Fatty liver,hx difficulty swallowing, no tx. for diabetes anymore. Left face numbness 01/16/16, red raised rash on arms and legs-went to ER. Lower back pain (bulging L4-5), kidney stones, gallstones History of Any Multi-Drug Resistant Organisms: None Reported Past Surgical History: Bariatric Surgery, Section, Hysterectomy, Tonsillectomy, Uterine Ablation Additional Past Surgical History / Comment(s): exploratory lower abdominal laparoscopy.5-2-16 lap brenda en y, recent EGD. epidural on January with orthopedics for back pain Past Anesthesia/Blood Transfusion Reactions: No Reported Reaction Additional Past Anesthesia/Blood Transfusion Reaction / Comment(s): claustrophobia Past Psychological History: Depression Smoking Status: Never smoker Past Alcohol Use History: Occasional Past Drug Use History: None Reported - Past Family History Mother Family Medical History: Congestive Heart Failure (CHF), Fibromyalgia Additional Family Medical History / Comment(s): at 43 from heart failure General Exam Limitations: no limitations General appearance: alert, in no apparent distress, obese Head exam: Present: atraumatic, normocephalic, normal inspection Eye exam: Present: normal appearance, PERRL, EOMI Pupils: Present: normal accommodation ENT exam: Present: normal exam, normal oropharynx, mucous membranes moist, TM's normal bilaterally, normal external ear exam Neck exam: Present: normal inspection, full ROM Respiratory exam: Present: normal lung sounds bilaterally Cardiovascular Exam: Present: regular rate, normal rhythm, normal heart sounds Extremities exam: Present: normal inspection, full ROM, normal capillary refill Back exam: Present: normal inspection, tenderness, paraspinal tenderness (Left paraspinal in the lumbosacral region). Absent: full ROM (Limited range of motion with lateral rotation due to pain), CVA tenderness (R), CVA tenderness (L), vertebral tenderness Neurological exam: Present: alert, oriented X3 Psychiatric exam: Present: normal affect, normal mood Skin exam: Present: warm, intact, normal color Course Vital Signs 02/19/19 00:01 Temperature 98.9 F Pulse Rate 99 Respiratory 18 Rate Blood Pressure 148/78 O2 Sat by Pulse 98 Oximetry Medical Decision Making - Medical Decision Making Patient 38 year old female presenting to emergency Department with a chief complaint of low back pain. Patient has history of chronic low back pain that appears to be exacerbated after she fell today. Patient does appear to have sciatica type symptoms. Along the left side of the leg. No cauda equina signs. No red flags. Patient has gastric bypass no NSAIDS were given. Patient given Lidoderm patch and [place]. Reevaluation patient reports mild improvement in symptoms and states that she is ready to go home. Patient reports she ready seasonal forensic specialist regarding her back pain. Patient reports she linda l schedule appointment tomorrow to go see ortho. Strict return parameters were thoroughly discussed with patient who is understanding and agreeable. Case discussed with physician. Disposition Clinical Impression: Mechanical back pain Disposition: HOME SELF-CARE Condition: Stable Instructions (If sedation given, give patient instructions): Acute Low Back Pain (ED) Additional Instructions: Please follow up with orthopedics. Please return to emergency department if symptoms worsen. Alternate between Tylenol and ibuprofen for pain control. Prescriptions: Cyclobenzaprine [Flexeril] 10 mg PO TID PRN #15 tab PRN Reason: Muscle Spasm Is patient prescribed a controlled substance at d/c from ED?: No Referrals: Aurelio Miller Jr, [Primary Care Provider] - 1-2 days Time of Disposition: 01:29
== END 2019-02-19 01:44 | disposition home or self-care (01) ==
LOC: EC 23:57
DX: M54.5 Low back pain (principal); G89.29 Other chronic pain; F32.9 Major depressive disorder, single episode, unspecified; Z98.84 Bariatric surgery status; Z79.899 Other long term (current) drug therapy; Z88.0 Allergy status to penicillin; Z88.2 Allergy status to sulfonamides; Z88.5 Allergy status to narcotic agent; Z91.040 Latex allergy status; Z88.8 Allergy status to other drugs, medicaments and biological substances
CPT/HCPCS: 99283

== ENCOUNTER → 2019-02-25 | Outpatient (CLI) | payer OTHER ==
[2019-02-25 17:54] LABS: HCT 35.5 % (34.0-46.0); HGB 11.6 gm/dL (11.4-16.0); MCH 25.9 pg (25.0-35.0); MCHC 32.8 g/dL (31.0-37.0); MCV 78.9 fL (80.0-100.0); Mean Platelet Volume 6.5; Platelet Count 262 k/uL (150-450); RDW 15.6 % (11.5-15.5); WBC 6.8 k/uL (3.8-10.6)
== END | disposition home or self-care (01) ==
LOC: LABPAT 17:00
PROVIDERS: ATTEND Anesthesiology
DX: Z01.812 Encounter for preprocedural laboratory examination (principal); K81.9 Cholecystitis, unspecified
CPT/HCPCS: 36415; 85027

== ENCOUNTER 2019-02-28 05:51 | Day surgery (SDC) | payer OTHER ==
[2019-02-25 11:47] VITALS: BMI 42.0
[~2019-02-28 05:51] MED LIST: DEXAMETHASONE SOD PHOSPHATE 10 MG/ML 1 ML VIAL IV ONE; HEPARIN SODIUM,PORCINE 5,000 UNIT/ML 1 ML VIAL SQ ONE; LIDOCAINE 1% 20 ML VIAL (10MG/ML) FOR IV START INTRADERMA PRN; ONDANSETRON 4 MG/2 ML VIAL IVP ONE
[2019-02-28] MEDS ORDERED: INDOCYANINE GREEN 25 MG VIAL IV STA (06:22)
--- NOTE | 2019-02-28 06:24 | P.GSHP ---
History of Present Illness H&P Date: 02/28/19 CHIEF COMPLAINT: Cholecystitis HISTORY OF PRESENT ILLNESS: The patient is a 38-year-old female who presents with history of epigastric including right upper quadrant abdominal pain. She underwent diagnostic studies for her gallbladder. Separately her clinical picture was consistent with cholecystitis. Now she presents for surgical intervention. PAST MEDICAL HISTORY: Please see list PAST SURGICAL HISTORY: Please see list MEDICATIONS: Please see list ALLERGIES: Denies. SOCIAL HISTORY: No illicit drug use or recent tobacco use FAMILY HISTORY: Pertinent for gallbladder disease REVIEW OF ORGAN SYSTEMS: CONSTITUTIONAL: No reports of fevers or chills. HEENT: Denies any troubles with the vision or hearing. HEMATOLOGIC: No personal or family history of DVTs or pulmonary emboli. SKIN: No skin cancer. PHYSICAL EXAM: VITAL SIGNS: Afebrile vital signs stable GENERAL: Well-developed pleasant in no acute distress. HEENT: No scleral icterus. Extraocular movements grossly intact. Moist buccal mucosa. NECK: Supple without lymphadenopathy. CHEST: Unlabored respirations. Equal bilateral excursions. CARDIOVASCULAR: Regular rate regular rhythm rhythm. Distal 2+ pulses. ABDOMEN: Soft, nondistended. Tender along the epigastrium and right upper quadrant. MUSCULOSKELETAL: No clubbing, cyanosis, or edema. NEURO: Cranial nerves II to XII within normal limits. No focal or lateralizing signs. PSYCH: Alert and oriented to person, place and time. SKIN: Well-perfused good skin turgor. ASSESSMENT: 1. Epigastric and right upper quadrant abdominal pain 2. Chronic cholecystitis 3. Symptomatic gallstones. PLAN: 1. Will need a robotic cholecystectomy possible open. Benefits and risks were described. 2. Heparin for DVT prophylaxis 5000 units. 3. Antibiotic prophylaxis. Past Medical History Past Medical History: Hyperlipidemia, Liver Disease Additional Past Medical History / Comment(s): Fatty liver,hx difficulty swallowing, no tx. for diabetes anymore. Left face numbness 01/16/16, red raised rash on arms and legs-went to ER. Lower back pain (bulging L4-5), kidney stones, gallstones History of Any Multi-Drug Resistant Organisms: None Reported Past Surgical History: Bariatric Surgery, Section, Hysterectomy, Tonsillectomy, Uterine Ablation Additional Past Surgical History / Comment(s): exploratory lower abdominal laparoscopy.10-11-15 lap brenda en y, recent EGD. epidural on January with orthopedics for back pain Past Anesthesia/Blood Transfusion Reactions: No Reported Reaction Additional Past Anesthesia/Blood Transfusion Reaction / Comment(s): claustrophobia Past Alcohol Use History: Occasional - Past Family History Mother Family Medical History: Congestive Heart Failure (CHF), Fibromyalgia Additional Family Medical History / Comment(s): at 43 from heart failure Medications and Allergies Home Medications Medication Instructions Recorded Confirmed Type Sertraline [Zoloft] 50 mg PO HS 12/10/18 02/25/19 History Cyclobenzaprine [Flexeril] 10 mg PO TID PRN #15 tab 02/19/19 02/25/19 Rx Medroxyprogesterone Acetate 150 mg IM Q90D 02/25/19 02/25/19 History [Depo-Provera] sitaGLIPtin [Januvia] 100 mg PO DAILY 02/25/19 02/25/19 History Allergies Allergy/AdvReac Type Severity Reaction Status Date / Time amoxicillin AdvReac flu like Verified 02/28/19 06:20 symptoms codeine AdvReac Nausea Verified 02/28/19 06:20 latex AdvReac pain and Verified 02/28/19 06:20 itching metformin AdvReac DIARRHEA Verified 02/28/19 06:20 AND FLU LIKE SYMPTOMS Penicillins AdvReac flu like Verified 02/28/19 06:20 symptoms Sulfa (Sulfonamide AdvReac flu like Verified 02/28/19 06:20 Antibiotics) symptoms
[2019-02-28] MEDS ORDERED: ACETAMINOPHEN TAB 500 MG TAB PO STA (06:27)
[2019-02-28 06:35] VITALS: TEMP 98.3
[2019-02-28] MEDS: LACTATED RINGERS 1,000 ML IV SCH ×2 (06:35→07:28)
[2019-02-28 06:38] LABS: Glucose,Whole Blood 127 mg/dL (75-99)
[2019-02-28] MEDS ORDERED: fentaNYL (PF) 50 MCG/ML 2 ML AMP ONE (07:25)
[2019-02-28] MEDS ORDERED: ROCURONIUM BROMIDE 10 MG/ML 10 ML VIAL IV ONE (07:25)
[2019-02-28] MEDS ORDERED: GLYCOPYRROLATE 0.2 MG/ML 2 ML VIAL ONE (07:25)
[2019-02-28] MEDS ORDERED: NEOSTIGMINE 1 MG/ML 10 ML VIAL ONE (07:25)
[2019-02-28] MEDS ORDERED: MIDAZOLAM 2 MG/2 ML VIAL ONE (07:25)
[2019-02-28] MEDS ORDERED: LIDOCAINE 1% INJ 10MG/ML (20 ML MDV) ONE (07:25)
[2019-02-28] MEDS ORDERED: PROPOFOL 10 MG/ML 20 ML VIAL IV ONE (07:25)
[2019-02-28] MEDS ORDERED: INDOCYANINE GREEN 25 MG VIAL IV ONE (07:25)
[2019-02-28] MEDS ORDERED: LIDOCAINE 1%-EPI 1:100,000 20 ML VIAL SQ ONE (08:00)
[2019-02-28] MEDS ORDERED: LACTATED RINGERS 1,000 ML IV ONE (09:04)
[2019-02-28] MEDS ORDERED: ONDANSETRON 4 MG/2 ML VIAL IVP ONE (09:09)
[2019-02-28] MEDS ORDERED: DEXAMETHASONE SOD PHOSPHATE 10 MG/ML 1 ML VIAL IV PRN (09:12)
[2019-02-28] MEDS ORDERED: PROMETHAZINE INJ 25 MG/ML 1 ML VIAL IVPB ONE ×2 (09:16→09:20)
--- NOTE | 2019-02-28 09:17 | P.OP ---
Date of Procedure: 02/28/19 Description of Procedure: SURGEON: CONNER TRIPATHI MD PREOPERATIVE DIAGNOSES: 1. Right upper quadrant abdominal pain 2. Symptomatic gallstones 3. Chronic cholecystitis 4. Morbid obesity due to excess calories, BMI 42.1 5. Diabetes type 2, [id number] 6. Depressive disorder 7. History of gastric bypass 8. History of abnormal LFTs POSTOPERATIVE DIAGNOSES: 1. Right upper quadrant abdominal pain 2. Symptomatic gallstones 3. Chronic cholecystitis 4. Morbid obesity due to excess calories, BMI 42.1 5. Diabetes type 2, [id number] 6. Depressive disorder 7. History of gastric bypass 8. History of abnormal LFTs 9. Severe hepatomegaly due to fatty liver disease OPERATION: Robotic-assisted da Tuan Xi laparoscopic cholecystectomy, multiport with FIREFLY ESTIMATED BLOOD LOSS: 20 mL. SPECIMENS REMOVED: Gallbladder. COMPLICATIONS: None. OPERATIVE FINDINGS: 1. Chronic cholecystitis with gallstones 2. Moderate severe hepatomegaly adding complexity to the case by extra 20 minutes. 3. No evidence of acute small bowel obstruction history of gastric bypass 4. Console time 36 minutes INDICATIONS: The patient is a 38-year-old female who presents with cholelcystitis. Surgical intervention with a laparoscopic cholecystectomy was described at length including injury to the biliary tree, bleeding, infection, need for further surgery. Informed consent was obtained. Robotic assisted laparoscopic approach was described. Benefits and risks of the procedure including but not limited to bleeding, infection, injury to the biliary tree was described. Informed consent was obtained. DESCRIPTION OF PROCEDURE: Patient was brought to the operating room, placed in supine position. After general induction, the abdomen had been prepped and draped in standard sterile fashion. The robotic da Tuan XI system was primed. After a timeout protocol was performed, the patient had been prepped and draped in standard sterile fashion. The patient was injected with indocyanine green. A 5 mm 0 degrees laparoscopic trocar entry was performed along the left upper quadrant. The abdomen insufflated to 15 mmHg pressure which was tolerated well. Diagnostic laparoscopy demonstrated no injury to bowel viscera or mesentery. The liver surface was unremarkable. Next, two 8 mm robotic ports were placed along the right upper abdomen. The camera 8-mm port was maintained along the epigastrium. Another 8 mm port was placed along the left upper abdominal wall after exchanging the 5 mm port. Please note that the ports were placed at least 10 to 15 cm away from the target anatomy of the gallbladder. The robot was docked along the left lateral abdomen. The patient was repositioned in reverse Trendelenburg position. Using a grasper for arm 3, a grasper for arm 4, including hook cautery for arm 1, the robotic system was docked and primed as described. Instruments were interchanged by the graphic design assistant including hook cautery, Bovie cautery and clip appliers. I had sat at the console. Severe hepatomegaly is identified and complexity to the case including exposure of the gallbladder. A dome down technique was approached. The gallbladder was dissected from the hepatic fossa to the gallbladder infundibulum. The gallbladder fundus was toward the dome of the liver. Initial attention was brought to the infundibulum which was gently retracted in the inferior lateral approach. Using a grasper, the cystic duct including the cystic artery was carefully skeletonized. FIREFLY was used to identify the cystic artery and cystic structures. A critical view of safety was obtained. Large PLASTIC clips were used throughout the entire case. Using a clip top trimmer 2 clips were placed proximally, and 1 clip was placed between the infundibulum and cystic duct and divided using cautery. Next, the cystic artery was similarly clipped and cauterized. Electro-Bovie cautery was used to remove the gallbladder from the hepatic fossa. Hemostasis was checked and found to be adequate. The robot was undocked. I re-scrubbed into the case. Using a 10 mm Endo Catch bag via the left upper quadrant incision, the specimen was removed from the abdominal cavity. All pneumoperitoneum instruments were evacuated from the abdominal cavity. The incisions were reapproximated using 4-0 Monocryl in an interrupted subcuticular fashion. Fascial defects were less than 8 mm in size. Please note along the trocar sites, local anesthetic was placed as a field block prior to insertion of all instruments. Liquid glue was applied to the skin. At the end of the procedure needle, sponge, and instrument count had been verified correct by the surgical territory manager. The patient was transferred to postanesthesia care unit in stable condition. Intraoperative films were shared with the patient's family who were very pleased with the level of care. Plan - Discharge Summary Discharge Rx Participant: No New Discharge Prescriptions: No Action Sertraline [Zoloft] 50 mg PO HS Cyclobenzaprine [Flexeril] 10 mg PO TID PRN #15 tab PRN Reason: Muscle Spasm sitaGLIPtin [Januvia] 100 mg PO DAILY Medroxyprogesterone Acetate [Depo-Provera] 150 mg IM Q90D Azithromycin [Zithromax Z-pack] 0 mg PO DIRECTED HYDROcodone/APAP 5-325MG [[place] 5-325] 1 tab PO Q6HR PRN PRN Reason: Pain Discharge Medication List Sertraline [Zoloft] 50 mg PO HS 12/10/18 [History] Cyclobenzaprine [Flexeril] 10 mg PO TID PRN #15 tab 02/19/19 [Rx] Medroxyprogesterone Acetate [Depo-Provera] 150 mg IM Q90D 02/25/19 [History] sitaGLIPtin [Januvia] 100 mg PO DAILY 02/25/19 [History] Azithromycin [Zithromax Z-pack] 0 mg PO DIRECTED 02/28/19 [History] HYDROcodone/APAP 5-325MG [[place] 5-325] 1 tab PO Q6HR PRN 02/28/19 [History]
[2019-02-28] MEDS: HYDROmorphone 0.5 MG/0.5 ML SYRINGE IVP PRN ×4 (09:26→09:54)
[2019-02-28 10:11] VITALS: RESP 18
[2019-02-28 10:30] VITALS: BP 109/71; PULSE 77
[2019-02-28] MEDS ORDERED: HYDROcodone/APAP 7.5-325MG 1 EACH TAB PO ONE (10:47)
== END 2019-02-28 11:22 | disposition home or self-care (01) ==
LOC: OR 05:51
PROVIDERS: ATTEND Surgery Plastic and Reconstructive Surgery
DX: K80.10 Calculus of gallbladder with chronic cholecystitis without obstruction (principal); E11.9 Type 2 diabetes mellitus without complications; E66.01 Morbid (severe) obesity due to excess calories; E78.5 Hyperlipidemia, unspecified; F32.9 Major depressive disorder, single episode, unspecified; K76.0 Fatty (change of) liver, not elsewhere classified; Z68.41 Body mass index [BMI] 40.0-44.9, adult; Z79.84 Long term (current) use of oral hypoglycemic drugs; Z82.49 Family history of ischemic heart disease and other diseases of the circulatory system; Z87.442 Personal history of urinary calculi; Z88.0 Allergy status to penicillin; Z88.5 Allergy status to narcotic agent; Z98.84 Bariatric surgery status; Z79.899 Other long term (current) drug therapy; Z88.2 Allergy status to sulfonamides; Z88.8 Allergy status to other drugs, medicaments and biological substances; Z91.040 Latex allergy status; Z79.3 Long term (current) use of hormonal contraceptives; M51.26 Other intervertebral disc displacement, lumbar region
CPT/HCPCS: 88304; 47562; J2250; J1644; J1100; J2550; J2710; J0690; J2405; J2001; J3010; J2704; J1170

== ENCOUNTER → 2019-03-05 | Outpatient (CLI) | payer OTHER ==
[2019-03-05 16:12] VITALS: BP 157/91; PULSE 104; RESP 16; TEMP 98.3; BMI 44.9
--- NOTE | 2019-03-05 17:08 | P.PN ---
Subjective Progress Note Date: 03/05/19 HPI: She is doing well. Her pain is controlled. She reports moderate weight gain. ABDOMEN: No infection ASSESSMENT: 1. Gallstones PLAN: 1. Continue increased protein Objective - Vital Signs Vital signs: Vital Signs Temp 98.3 F 03/05/19 16:09 Pulse 104 H 03/05/19 16:09 Resp 16 03/05/19 16:09 BP 157/91 03/05/19 16:09 Pulse Ox Intake & Output 03/04/19 03/05/19 03/05/19 18:59 06:59 18:59 Weight 109.769 kg
== END ==
LOC: BARWHC3 15:37
PROVIDERS: ATTEND Surgery Plastic and Reconstructive Surgery
DX: R63.5 Abnormal weight gain (principal); K80.80 Other cholelithiasis without obstruction; Z68.42 Body mass index [BMI] 45.0-49.9, adult
CPT/HCPCS: 99211

== ENCOUNTER → 2019-03-24 | Outpatient (CLI) | payer OTHER ==
[2019-03-24 12:54] VITALS: BP 149/91; PULSE 93; TEMP 99.5; BMI 45.5
--- NOTE | 2019-06-08 19:03 | P.PN ---
Subjective Progress Note Date: 03/24/19 Nurse visit only. Objective - Vital Signs Vital signs: Vital Signs Temp 99.5 F 03/24/19 11:53 Pulse 93 03/24/19 11:53 Resp BP 149/91 03/24/19 11:53 Pulse Ox
== END | disposition home or self-care (01) ==
LOC: BARWHC3 11:23
PROVIDERS: ATTEND Surgery Plastic and Reconstructive Surgery
DX: E66.01 Morbid (severe) obesity due to excess calories (principal)
CPT/HCPCS: 99211

== ENCOUNTER → 2019-03-26 | Outpatient (CLI) | payer OTHER ==
--- NOTE | 2019-03-26 13:39 | P.PN ---
Subjective Progress Note Date: 03/26/19 DATE OF SERVICE: 03/26/2019 CHIEF COMPLAINT: Abdominal pain HISTORY OF PRESENT ILLNESS: Candice Avery is a 39-year-old female who is status post Magaly-en-Y gastric bypass in October 2015. She is 3 years out. She is also status post cholecystectomy, 02/28/19. She comes in almost 1 month from her gallbladder. She is not getting enough fluids. She is not following medical advise. At the height of 5 feet 1-1/2 inches, her highest weight was 293 pounds. Today she comes in weighing 240 pounds from 241 pounds, 1 month ago. She has lost 1 pounds in 1 month. Her ideal body weight is 131 pounds. She has lost 53 pounds from initial 116 pounds weight loss. She has achieved 32% excess weight loss. Body mass index is reduced from 54.6 down to 44.8. She is 109 pounds overweight PHYSICAL EXAM: VITAL SIGNS: 5 foot 1.5 inch, 240 pounds. Body mass index is 44.8 Vital Signs Temp 98.8 F 03/26/19 13:27 Pulse 100 03/26/19 13:27 Resp BP 146/72 03/26/19 13:27 Pulse Ox GENERAL: Well-developed female in no acute distress. ABDOMEN: Small hard nodule. No infection. HEENT: No sclera icterus. Extraocular movements grossly intact. Moist buccal mucosa. Head is atraumatic, normocephalic. Hears conversational speech. No nasal drainage. NECK: Supple without lymphadenopathy. No JV distention. CHEST: Non-labored respirations and equal bilateral excursions. CARDIOVASCULAR: Tachycardic. Palpable 2+ radial pulses. MUSCULOSKELETAL: No clubbing, cyanosis or edema. NEUROLOGIC: No focal or lateralizing signs. Cranial nerves II-12 grossly intact. PSYCH: Appropriate affect. Alert and oriented to person, place and time. SKIN: Well perfused. Good skin turgor. ASSESSMENT: 1. Morbid obesity due to excess calories, improved. 2. Body mass index reduced from 54.6 down to 44.8 3. Status post Magaly-en-Y gastric bypass. 4. Diabetes type 2, rbf-lihgrsk-[id number] 5. Weight gain following bariatric procedure. 6. Kidney stones, new 7. Non-compliance to bariatric care 8. Gastroesophageal reflux disease 9. Dietary surveillance and counseling 10. Status post cholecystectomy 11. Iron deficiency anemia 12. Dehydration PLAN: 1. Recommend iron and IV fluids
[2019-03-26 13:41] VITALS: BP 146/72; PULSE 100; TEMP 98.8; BMI 44.8
== END | disposition home or self-care (01) ==
LOC: BARWHC3 13:00
PROVIDERS: ATTEND Surgery Plastic and Reconstructive Surgery
DX: Z48.815 Encounter for surgical aftercare following surgery on the digestive system (principal); E66.01 Morbid (severe) obesity due to excess calories; E11.9 Type 2 diabetes mellitus without complications; N20.0 Calculus of kidney; K21.9 Gastro-esophageal reflux disease without esophagitis; D50.9 Iron deficiency anemia, unspecified; E86.0 Dehydration; Z68.41 Body mass index [BMI] 40.0-44.9, adult; Z71.3 Dietary counseling and surveillance; Z90.49 Acquired absence of other specified parts of digestive tract
CPT/HCPCS: 99211

== ENCOUNTER → 2019-04-16 | Outpatient (CLI) | payer OTHER ==
--- NOTE | 2019-04-17 13:33 | MM ---
Reason for exam: screening (asymptomatic). Baseline mammogram. History: Taking hormonal contraceptives. Physical Findings: Nurse did not find any significant physical abnormalities on exam. MG Screening Mammo w CAD Bilateral CC and MLO view(s) were taken. The breast tissue is heterogeneously dense. This may lower the sensitivity of mammography. Focal asymmetry upper outer right breast 12cm from nipple. These results were verbally communicated with the patient and result sheet given to the patient on 04/16/19. ASSESSMENT: Incomplete: need additional imaging evaluation, BI-RAD 0 RECOMMENDATION: Special view mammogram of the right breast.
--- NOTE | 2019-04-17 13:34 | MM ---
Reason for exam: additional evaluation requested from abnormal screening. History: Taking hormonal contraceptives. Physical Findings: Breast exam preformed at baseline screening. MG Work Up Mamm w CAD RT Spot compression CC, spot compression MLO, and LM view(s) were taken of the right breast. Persistent but improved. Ultrasound recommended. These results were verbally communicated with the patient and result sheet given to the patient on 04/16/19. ASSESSMENT: Incomplete: need additional imaging evaluation, BI-RAD 0 RECOMMENDATION: Ultrasound of the right breast.
--- NOTE | 2019-04-17 13:35 | USB ---
Reason for exam: additional evaluation requested from abnormal screening. History: Taking hormonal contraceptives. US Breast Workup Limited RT Right limited breast ultrasound including focal area of concern, retroareolar and axilla demonstrates a 2.4 x 1.5 x 1.2cm hyperechoic lesion at 10 o'clock, probable lipoma. These results were verbally communicated with the patient and result sheet given to the patient on 04/16/19. ASSESSMENT: Probably benign, BI-RAD 3 RECOMMENDATION: Follow-up diagnostic mammogram and ultrasound of the right breast in 6 months.
== END | disposition home or self-care (01) ==
LOC: RADMAMWWP 15:38
PROVIDERS: ATTEND Family Medicine
DX: Z12.31 Encounter for screening mammogram for malignant neoplasm of breast (principal); R92.8 Other abnormal and inconclusive findings on diagnostic imaging of breast
CPT/HCPCS: 77065; 77067

== ENCOUNTER → 2019-06-25 | Outpatient (CLI) | payer OTHER ==
[2019-06-25 15:30] VITALS: BP 149/93; PULSE 96; RESP 16; TEMP 98.3; BMI 44.8
--- NOTE | 2019-06-25 16:58 | P.PN ---
Subjective Progress Note Date: 06/25/19 DATE OF SERVICE: 06/25/2019 CHIEF COMPLAINT: Change in bowel habits HISTORY OF PRESENT ILLNESS: Candice Avery is a 39-year-old female who is status post Magaly-en-Y gastric bypass in October 2015. She is 3+ years out. She comes in with new diarrhea and vomiting. Per her PCP, she is being requested to undergo scopes. She had chicken and broccoli last night that she tolerated. She reports not sleeping. She reports having a new hernia. She reports having dark stools in the morning. She presents with new concerns today. At the height of 5 feet 1-1/2 inches, her highest weight was 293 pounds. Today she comes in weighing 240 pounds unchanged from 3 months ago. Her ideal body weight is 131 pounds. She has lost 53 pounds from initial 116 pounds weight loss. She has achieved 32% excess weight loss. Body mass index is reduced from 54.6 down to 44.8. She is 109 pounds overweight PAST MEDICAL HISTORY: 1. Diabetes type 2, resolved. 2. Hypertension, resolved. 3. Fatty liver disease. 4. Hypothyroidism. 5. Morbid obesity due to excess calories, BMI 54.6 6. Gastroesophageal disease, resolved. 7. Panniculitis. PAST SURGICAL HISTORY: 1. x4. 2. Hysterectomy. 3. Endoscopy. 4. Uterine ablation. 5. Repeat upper endoscopy with balloon dilatation. 6. Gastric Bypass. 7. Cholecystectomy MEDICATIONS: Home Medications Medication Instructions Recorded Confirmed Medroxyprogesterone Acetate 150 mg IM Q90D 02/25/19 07/16/19 [Depo-Provera] Ergocalciferol [Vitamin D2 50,000 unit PO Q7D 07/15/19 07/16/19 (DRISDOL)] Previous Rx's Medication Instructions Recorded Dicyclomine [Bentyl] 10 mg PO TID #30 capsule 07/07/19 Thiamine [Vitamin B-1] 100 mg PO BID-W/MEALS tab 07/16/19 Ciprofloxacin HCl [Cipro] 500 mg PO BID tab 07/21/19 INSULIN ASPART (NovoLOG) [NovoLOG 0 unit SQ ACHS vial 07/21/19 (formulary)] Sertraline [Zoloft] 75 mg PO HS tab 02/10/20 ALLERGIES: 1. AMOXICILLIN. 2. LATEX. 3. PENICILLIN. 4. SULFA. 5. CODEINE. 6. METFORMIN. SOCIAL HISTORY: No tobacco use. FAMILY HISTORY: Family history is pertinent for gallbladder disease. Also notable for heart disease. REVIEW OF SYSTEMS: CONSTITUTIONAL: At the height of 5 feet 1-1/2 inches, her highest weight was 293 pounds. Her ideal body weight is 131 pounds. Most weight lost 116 pounds. Body mass index was 54.6 down to 32.9. ENDOCRINE: Recurrent diabetes type 2. No thyroid disorder. RESPIRATORY: Past obstructive sleep apnea. No recent pneumonia. Has troubles with sleep CARDIOVASCULAR: Resolved hypertension. No chest pain. GASTROINTESTINAL: Has new change in bowel habits and troubles with swallowing. MUSCULOSKELETAL: Has lower back, including bilateral hip and knee pain due to morbid obesity. HEENT: No trouble with vision or hearing. SKIN: Consistent with panniculitis. HEMATOLOGIC: No personal or family history DVT or pulmonary emboli. LYMPHATIC: The patient denies any lumps and bumps around the neck. RESPIRATORY: Denies shortness of breath including chronic cough. GENITOURINARY: Denies any blood in urine or increased urinary frequency. Previous history of kidney stones. NEUROLOGIC: Denies any numbness or tingling along the distal extremities. No seizure disorders or headaches. PSYCHIATRIC: Has depression or suicidal ideation. HEMATOLOGIC: Denies any abnormal bleeding or bruising. PHYSICAL EXAM: VITAL SIGNS: 5 foot 1.5 inch, 240 pounds. Body mass index is 44.8 Vital Signs Temp 98.3 F 06/25/19 15:28 Pulse 96 06/25/19 15:28 Resp 16 06/25/19 15:28 BP 149/93 06/25/19 15:28 Pulse Ox GENERAL: Well-developed female in no acute distress. ABDOMEN: Small hard nodule. No infection. HEENT: No sclera icterus. Extraocular movements grossly intact. Moist buccal mucosa. Head is atraumatic, normocephalic. Hears conversational speech. No nasal drainage. NECK: Supple without lymphadenopathy. No JV distention. CHEST: Non-labored respirations and equal bilateral excursions. CARDIOVASCULAR: Regular rate and rhythm. Palpable 2+ radial pulses. MUSCULOSKELETAL: No clubbing, cyanosis or edema. NEUROLOGIC: No focal or lateralizing signs. Cranial nerves II-12 grossly intact. PSYCH: Appropriate affect. Alert and oriented to person, place and time. SKIN: Well perfused. Good skin turgor. ASSESSMENT: 1. Morbid obesity due to excess calories, improved. 2. Body mass index reduced from 54.6 down to 44.8 3. Status post Magaly-en-Y gastric bypass. 4. Diabetes type 2, [id number] 5. Weight gain following bariatric procedure. 6. Kidney stones, new 7. Non-compliance to bariatric care 8. Gastroesophageal reflux disease 9. Dietary surveillance and counseling 10. Status post cholecystectomy 11. Iron deficiency anemia 12. Dehydration PLAN: 1. Recommend sleep specialist for her troubles with sleep 2. Recommend upper scope for troubles with swallowing 3. Recommend lower scope for change in bowel habits. Objective - Vital Signs Vital signs: Vital Signs Temp 98.3 F 06/25/19 15:28 Pulse 96 06/25/19 15:28 Resp 16 06/25/19 15:28 BP 149/93 06/25/19 15:28 Pulse Ox Intake & Output 06/24/19 06/25/19 06/25/19 18:59 06:59 18:59 Weight 109.316 kg
== END | disposition home or self-care (01) ==
LOC: BARWHC3 13:45
PROVIDERS: ATTEND Surgery Plastic and Reconstructive Surgery
DX: E66.01 Morbid (severe) obesity due to excess calories (principal); Z68.41 Body mass index [BMI] 40.0-44.9, adult; E11.9 Type 2 diabetes mellitus without complications; N20.0 Calculus of kidney; Z91.19 Patient's noncompliance with other medical treatment and regimen; K21.9 Gastro-esophageal reflux disease without esophagitis; Z71.3 Dietary counseling and surveillance; D50.9 Iron deficiency anemia, unspecified; E86.0 Dehydration; Z98.84 Bariatric surgery status; Z90.49 Acquired absence of other specified parts of digestive tract; Z98.890 Other specified postprocedural states; Z90.710 Acquired absence of both cervix and uterus; Z79.4 Long term (current) use of insulin; Z79.899 Other long term (current) drug therapy; Z88.0 Allergy status to penicillin; Z88.2 Allergy status to sulfonamides; Z88.5 Allergy status to narcotic agent; Z91.040 Latex allergy status
CPT/HCPCS: 99211

== ENCOUNTER 2019-06-26 07:33 | Emergency (ER) | payer OTHER ==
[2019-06-26] MEDS ORDERED: SODIUM CHLORIDE 0.9% 1,000 ML IV STA (07:51)
[2019-06-26] MEDS ORDERED: ONDANSETRON 4 MG/2 ML VIAL IVP STA ×2 (07:51→08:23)
[2019-06-26] MEDS ORDERED: KETOROLAC 30 MG/ML 1 ML VIAL IVP STA (07:51)
--- NOTE | 2019-06-26 07:59 | ED ---
Female Urogenital HPI - General Chief complaint: Vaginal Bleeding Stated complaint: pain in left ovary Time Seen by Provider: 06/26/19 07:42 Source: patient, RN notes reviewed Mode of arrival: ambulatory Limitations: no limitations - History of Present Illness Initial comments: This a 39-year-old female presents emergency Department chief complaint left lower quadrant abdominal pain. Patient states that the pain started last few days it does wax and wane but has not resolved. She notes that there is some blood when she wiped after she urinated. She has had a partial hysterectomy. Reports no fevers or chills does have a history kidney stone and diverticulitis. Patient states she feels tearing, foreign sensation in her lower abdomen slightly loose stools no melena hematochezia. Patient does admit to nausea and vomiting no fevers chills no chest pain or shortness breath. - Related Data Home Medications Medication Instructions Recorded Confirmed Sertraline [Zoloft] 50 mg PO HS 12/10/18 06/25/19 Medroxyprogesterone Acetate 150 mg IM Q90D 02/25/19 06/25/19 [Depo-Provera] sitaGLIPtin [Januvia] 100 mg PO DAILY 02/25/19 06/25/19 Previous Rx's Medication Instructions Recorded Acetaminophen Tab [Tylenol Tab] 500 mg PO Q6H PRN #30 tablet 02/28/19 Ciprofloxacin HCl [Cipro] 500 mg PO Q12HR #20 tablet 06/26/19 HYDROcodone/APAP 7.5-325MG [[place] 1 tab PO Q6HR PRN 3 Days #12 tab 06/26/19 7.5-325] Ondansetron Odt [Zofran Odt] 4 mg PO Q8HR PRN #10 tab 06/26/19 metroNIDAZOLE [Flagyl] 500 mg PO TID #30 tab 06/26/19 Allergies Allergy/AdvReac Type Severity Reaction Status Date / Time amoxicillin AdvReac flu like Verified 06/26/19 07:39 symptoms codeine AdvReac Nausea Verified 06/26/19 07:39 latex AdvReac pain and Verified 06/26/19 07:39 itching metformin AdvReac DIARRHEA Verified 06/26/19 07:39 AND FLU LIKE SYMPTOMS Penicillins AdvReac flu like Verified 06/26/19 07:39 symptoms Sulfa (Sulfonamide AdvReac flu like Verified 06/26/19 07:39 Antibiotics) symptoms Review of Systems ROS Statement: Those systems with pertinent positive or pertinent negative responses have been documented in the HPI. ROS Other: All systems not noted in ROS Statement are negative. Past Medical History Past Medical History: Hyperlipidemia, Liver Disease Additional Past Medical History / Comment(s): Fatty liver,hx difficulty swallowing, no tx. for diabetes anymore. Left face numbness 01/16/16, red raised rash on arms and legs-went to ER. Lower back pain (bulging L4-5), kidney stones, gallstones History of Any Multi-Drug Resistant Organisms: None Reported Past Surgical History: Bariatric Surgery, Section, Cholecystectomy, Hysterectomy, Tonsillectomy, Uterine Ablation Additional Past Surgical History / Comment(s): exploratory lower abdominal laparoscopy.10-11-15 lap brenda en y, recent EGD. epidural on January with orthopedics for back pain, cholecystectomy 02/28/19 Past Anesthesia/Blood Transfusion Reactions: No Reported Reaction Additional Past Anesthesia/Blood Transfusion Reaction / Comment(s): claustrophobia Past Psychological History: Depression Smoking Status: Never smoker Past Alcohol Use History: Occasional Past Drug Use History: None Reported - Past Family History Mother Family Medical History: Congestive Heart Failure (CHF), Fibromyalgia Additional Family Medical History / Comment(s): at 43 from heart failure General Exam Limitations: no limitations General appearance: alert, in no apparent distress Head exam: Present: atraumatic, normocephalic, normal inspection Eye exam: Present: normal appearance, PERRL, EOMI. Absent: scleral icterus, conjunctival injection, periorbital swelling ENT exam: Present: normal exam, normal oropharynx, mucous membranes moist Neck exam: Present: normal inspection, full ROM. Absent: tenderness, meningismus, lymphadenopathy Respiratory exam: Present: normal lung sounds bilaterally. Absent: respiratory distress, wheezes, rales, rhonchi, stridor Cardiovascular Exam: Present: regular rate, normal rhythm, normal heart sounds. Absent: systolic murmur, diastolic murmur, rubs, gallop, clicks GI/Abdominal exam: Present: soft, tenderness (Mild left lower quadrant tenderness), normal bowel sounds. Absent: distended, guarding, rebound, rigid Back exam: Present: CVA tenderness (L). Absent: CVA tenderness (R) Neurological exam: Present: alert, oriented X3, CN II-XII intact Skin exam: Present: warm, dry, intact, normal color. Absent: rash Course Vital Signs 06/26/19 07:34 Temperature 98.8 F Pulse Rate 101 H Respiratory 20 Rate Blood Pressure 131/83 O2 Sat by Pulse 98 Oximetry Medical Decision Making - Medical Decision Making Patient CT shows evidence of diverticulitis without evidence of perforation or abscess. Patient has no leukocytosis no fever at this time. Patient treated for mild diverticulitis with oral antibiotics with close follow-up. She does see Dr. Salinas and is scheduled to have a upper and lower GI. - Lab Data Result diagrams: 06/26/19 08:21 06/26/19 08:21 Lab Results 06/26/19 06/26/19 06/26/19 Range/Units 08:15 08:21 08:21 WBC 7.8 (3.8-10.6) k/uL RBC 4.16 (3.80-5.40) m/uL Hgb 12.4 (11.4-16.0) gm/dL Hct 36.8 (34.0-46.0) % MCV 88.4 (80.0-100.0) fL MCH 29.8 (25.0-35.0) pg MCHC 33.8 (31.0-37.0) g/dL RDW 15.2 (11.5-15.5) % Plt Count 250 (150-450) k/uL Neutrophils % 75 % Lymphocytes % 18 % Monocytes % 4 % Eosinophils % 2 % Basophils % 1 % Neutrophils # 5.9 (1.3-7.7) k/uL Lymphocytes # 1.4 (1.0-4.8) k/uL Monocytes # 0.3 (0-1.0) k/uL Eosinophils # 0.2 (0-0.7) k/uL Basophils # 0.0 (0-0.2) k/uL Sodium 139 (137-145) mmol/L Potassium 4.7 (3.5-5.1) mmol/L Chloride 109 H (98-107) mmol/L Carbon Dioxide 19 L (22-30) mmol/L Anion Gap 11 mmol/L BUN 12 (7-17) mg/dL Creatinine 0.55 (0.52-1.04) mg/dL Est GFR (CKD-EPI)AfAm >90 (>60 ml/min/1.73 sqM) Est GFR (CKD-EPI)NonAf >90 (>60 ml/min/1.73 sqM) Glucose 131 H (74-99) mg/dL Calcium 8.7 (8.4-10.2) mg/dL Total Bilirubin 0.6 (0.2-1.3) mg/dL AST 24 (14-36) U/L ALT 19 (4-34) U/L Alkaline Phosphatase 97 (38-126) U/L Total Protein 7.3 (6.3-8.2) g/dL Albumin 4.2 (3.5-5.0) g/dL Amylase 42 (30-110) U/L Lipase 160 (23-300) U/L Urine Color Yellow Urine Appearance Clear (Clear) Urine pH 6.0 (5.0-8.0) Ur Specific [place] 1.020 (1.001-1.035) Urine Protein Negative (Negative) Urine Glucose (UA) Negative (Negative) Urine Ketones Negative (Negative) Urine Blood Moderate H (Negative) Urine Nitrite Negative (Negative) Urine Bilirubin Negative (Negative) Urine Urobilinogen <2.0 (<2.0) mg/dL Ur Leukocyte Esterase Negative (Negative) Urine RBC 7 H (0-5) /hpf Urine WBC 1 (0-5) /hpf Ur Squamous Epith Cells 7 H (0-4) /hpf Urine Mucus Rare H (None) /hpf Disposition Clinical Impression: Diverticulitis Disposition: HOME SELF-CARE Condition: Stable Instructions (If sedation given, give patient instructions): Diverticulitis Diet (ED), Diverticulitis (ED) Additional Instructions: Please return to the Emergency Department if symptoms worsen or any other concerns. Prescriptions: Ciprofloxacin HCl [Cipro] 500 mg PO Q12HR #20 tablet metroNIDAZOLE [Flagyl] 500 mg PO TID #30 tab HYDROcodone/APAP 7.5-325MG [[place] 7.5-325] 1 tab PO Q6HR PRN 3 Days #12 tab PRN Reason: pain Ondansetron Odt [Zofran Odt] 4 mg PO Q8HR PRN #10 tab PRN Reason: Nausea Is patient prescribed a controlled substance at d/c from ED?: Yes When asked, does pt state using other controlled substances?: No If prescribed controlled substance>3 days was MAPS reviewed?: Prescribed <3 Days If opioid is for acute pain is fill amount 7 days or less?: Yes If Rx opioid, was Start Talking consent form obtained?: Yes Referrals: Aurelio Miller Jr, [Primary Care Provider] - 1-2 days Time of Disposition: 09:21
[2019-06-26] MEDS ORDERED: MORPHINE SULFATE 4 MG/ML SYRINGE IVP STA (08:23)
--- NOTE | 2019-06-26 08:23 | CT ---
EXAMINATION TYPE: CT abdomen pelvis wo con DATE OF EXAM: 06/26/2019 COMPARISON: 12/19/2018 HISTORY: 39-year-old female Left lower quadrant pain, left flank pain CT DLP: 991 mGycm. Automated exposure control for dose reduction was used. TECHNIQUE: Contiguous axial scanning of the abdomen and pelvis without IV contrast. Coronal and sagit mariola reconstructions performed. FINDINGS: Heart normal size without pericardial effusion. Lung bases clear without pleural effusion. Liver enlarged at 21.4 cm. Gallbladder surgically absent. Noncontrast appearance of the adrenal gland s, right kidney, and pancreas shows no gross abnormal. Spleen is borderline enlarged at 13.6 cm measu red on coronal series, image 56. Postsurgical changes of Magaly-en-Y gastric bypass. Punctate 2 mm nonobstructive left renal calculus. Focal 1.9 area of inflammatory fat stranding within the right upper quadrant omentum/mesentery is unc hanged from 12/19/2018. No mesenteric or retroperitoneal lymphadenopathy. Normal appendix. Mild stool burden. Mild diverticular change of the junction of the descending and si gmoid colon. There is focal wall thickening and mild to moderate fat stranding and inflammation in th is region. Bladder is nondistended. Uterus surgically absent. Both ovaries are visualized. No abnormal fluid col lection in the pelvis or pelvic lymphadenopathy. Bones: Mild degenerative disc disease throughout the lumbar spine, more moderate at L4-L5 and L5-S1. Incidental L4 limbus vertebra. IMPRESSION: 1. Exam positive for mild acute diverticulitis at the junction of the descending and sigmoid colon. No abscess or free air. 2. Stable 1.9 cm area of focal inflammation along the right upper quadrant omentum/mesentery, unchan ged from 12/19/2018. Omental infarct or persistent inflammatory changes from epiploic appendagitis are in the differential. Stability suggests a benign etiology. 3. Nonobstructive 2 mm left renal calculus. 4. Prior Magaly-en-Y gastric bypass. Prior hysterectomy and cholecystectomy. 5. Hepatomegaly (21.4 cm) and borderline size spleen (13.6 cm).
[2019-06-26 08:38] LABS: Basophils % (A) 1 %; Eosinophils # (A) 0.2 k/uL (0-0.7); Eosinophils % (A) 2 %; HCT 36.8 % (34.0-46.0); HGB 12.4 gm/dL (11.4-16.0); Lymphocytes # (A) 1.4 k/uL (1.0-4.8); Lymphocytes % (A) 18 %; MCH 29.8 pg (25.0-35.0); MCHC 33.8 g/dL (31.0-37.0); MCV 88.4 fL (80.0-100.0); Mean Platelet Volume 7.1; Monocytes # (A) 0.3 k/uL (0-1.0); Monocytes % (A) 4 %; Neutrophils # (A) 5.9 k/uL (1.3-7.7); Neutrophils % (A) 75 %; Platelet Count 250 k/uL (150-450); RBC 4.16 m/uL (3.80-5.40); RDW 15.2 % (11.5-15.5); WBC 7.8 k/uL (3.8-10.6)
[2019-06-26 08:49] LABS: Appearance,Urine Clear (Clear); Bilirubin,Urine Negative (Negative); Blood,Urine Moderate (Negative); Color,Urine Yellow; Glucose,Urine (UA) Negative (Negative); Ketones,Urine Negative (Negative); Leukocyte Esterase,Urine Negative (Negative); Mucus,Urine Rare /hpf; Nitrite,Urine Negative (Negative); Protein,Urine Negative (Negative); RBC,Urine 7 /hpf (0-5); Squamous Epithelial Cell,Urine 7 /hpf (0-4); Urobilinogen,Urine <2.0 mg/dL (<2.0); WBC,Urine 1 /hpf (0-5)
[2019-06-26 08:50] LABS: ALT 19 U/L (4-34); AST 24 U/L (14-36); African American GFR (CKD) >90 (>60 ml/min/1.73 sqM); Albumin 4.2 g/dL (3.5-5.0); Alkaline Phosphatase 97 U/L (38-126); Amylase 42 U/L (30-110); Anion Gap 11 mmol/L; Blood Urea Nitrogen 12 mg/dL (7-17); Calcium 8.7 mg/dL (8.4-10.2); Carbon Dioxide 19 mmol/L (22-30); Chloride 109 mmol/L (98-107); Glucose 131 mg/dL (74-99); Non-African American GFR(CKD) >90 (>60 ml/min/1.73 sqM); Potassium 4.7 mmol/L (3.5-5.1); Sodium 139 mmol/L (137-145); Total Bilirubin 0.6 mg/dL (0.2-1.3); Total Protein 7.3 g/dL (6.3-8.2)
[2019-06-26] MEDS ORDERED: HYDROmorphone 1 MG/ML 1 ML SYRINGE IVP STA (09:15)
[2019-06-26 09:22] VITALS: BP 117/75; PULSE 95; RESP 18; TEMP 97.6
[2019-06-26] MEDS ORDERED: cefTRIAXone IN SWFI 1,000 MG/10 ML SYRINGE IVP STA (09:22)
== END 2019-06-26 09:34 | disposition home or self-care (01) ==
LOC: EC 07:33
DX: K57.32 Diverticulitis of large intestine without perforation or abscess without bleeding (principal); F32.9 Major depressive disorder, single episode, unspecified; Z88.0 Allergy status to penicillin; Z88.2 Allergy status to sulfonamides; Z88.5 Allergy status to narcotic agent; Z88.8 Allergy status to other drugs, medicaments and biological substances; Z91.040 Latex allergy status; Z79.3 Long term (current) use of hormonal contraceptives; Z79.84 Long term (current) use of oral hypoglycemic drugs; Z79.899 Other long term (current) drug therapy; Z87.442 Personal history of urinary calculi; Z98.84 Bariatric surgery status; Z90.49 Acquired absence of other specified parts of digestive tract; Z90.710 Acquired absence of both cervix and uterus; Z53.20 Procedure and treatment not carried out because of patient's decision for unspecified reasons; Z53.8 Procedure and treatment not carried out for other reasons
CPT/HCPCS: 36415; 80053; 82150; 83690; 85025; 81001; 74176; 99284; 96374; 96375 ×3; 96361; J2270; J2405; J0696; J1170

== ENCOUNTER 2019-06-28 19:18 | Inpatient (IN) | payer OTHER ==
[2019-06-28 20:50] LABS: Appearance,Urine Clear (Clear); Bacteria,Urine Rare /hpf; Bilirubin,Urine Negative (Negative); Blood,Urine Small (Negative); Color,Urine Light Yellow; Glucose,Urine (UA) Negative (Negative); Ketones,Urine Negative (Negative); Leukocyte Esterase,Urine Negative (Negative); Mucus,Urine Rare /hpf; Nitrite,Urine Negative (Negative); Protein,Urine Negative (Negative); RBC,Urine 3 /hpf (0-5); Specific Gravity,Urine 1.009 (1.001-1.035); Squamous Epithelial Cell,Urine 7 /hpf (0-4); Urobilinogen,Urine <2.0 mg/dL (<2.0); WBC,Urine 1 /hpf (0-5)
[2019-06-28] MEDS ORDERED: ONDANSETRON 4 MG/2 ML VIAL IVP STA (21:02)
[2019-06-28] MEDS ORDERED: MORPHINE SULFATE 4 MG/ML SYRINGE IV STA (21:02)
[2019-06-28 21:03] LABS: Basophils # (A) 0.1 k/uL (0-0.2); Basophils % (A) 1 %; Eosinophils # (A) 0.1 k/uL (0-0.7); Eosinophils % (A) 2 %; HCT 39.4 % (34.0-46.0); HGB 12.8 gm/dL (11.4-16.0); Lymphocytes # (A) 1.2 k/uL (1.0-4.8); Lymphocytes % (A) 20 %; MCH 29.2 pg (25.0-35.0); MCHC 32.5 g/dL (31.0-37.0); MCV 89.8 fL (80.0-100.0); Monocytes # (A) 0.3 k/uL (0-1.0); Monocytes % (A) 6 %; Neutrophils % (A) 70 %; Platelet Count 247 k/uL (150-450); RBC 4.38 m/uL (3.80-5.40); WBC 5.7 k/uL (3.8-10.6)
[2019-06-28 21:14] LABS: ALT 47 U/L (4-34); AST 43 U/L (14-36); African American GFR (CKD) >90 (>60 ml/min/1.73 sqM); Albumin 4.2 g/dL (3.5-5.0); Alkaline Phosphatase 122 U/L (38-126); Anion Gap 8 mmol/L; Blood Urea Nitrogen 11 mg/dL (7-17); Calcium 9.2 mg/dL (8.4-10.2); Carbon Dioxide 22 mmol/L (22-30); Chloride 108 mmol/L (98-107); Glucose 101 mg/dL (74-99); Non-African American GFR(CKD) >90 (>60 ml/min/1.73 sqM); Potassium 4.7 mmol/L (3.5-5.1); Sodium 138 mmol/L (137-145); Total Bilirubin 0.3 mg/dL (0.2-1.3); Total Protein 7.2 g/dL (6.3-8.2)
[2019-06-28] MEDS ORDERED: LEVOFLOXACIN 750MG-D5W PMX 750 MG in DEXTROSE/WATER 1 150ML.BAG IVPB STA (21:17)
[2019-06-28] MEDS ORDERED: cefTRIAXone 1,000 MG VIAL (IM USE) IM STA (21:39)
[2019-06-28] MEDS ORDERED: NALOXONE 0.4 MG/ML 1 ML VIAL IV PRN (22:01)
[2019-06-28] MEDS ORDERED: MORPHINE SULFATE 4 MG/ML SYRINGE IV PRN (22:01)
[2019-06-28] MEDS ORDERED: HYDROmorphone 1 MG/ML 1 ML SYRINGE IVP STA (22:04)
--- NOTE | 2019-06-28 22:04 | ED ---
General Adult HPI - General Chief complaint: Abdominal Pain Stated complaint: Abd pain Time Seen by Provider: 06/28/19 19:42 Source: patient, RN notes reviewed, old records reviewed Mode of arrival: ambulatory Limitations: no limitations - History of Present Illness Initial comments: 39-year-old female patient past history of cholecystectomy, hysterectomy, tonsillectomy, bariatric surgery, hyperlipidemia, fatty liver disease presents ED for chief complaint of left lower quadrant pain. Patient was seen in this emergency department on 06/26 and diagnosed with diverticulitis. Patient reports that she took 2 days worth of ciprofloxacin and Flagyl however is having adverse effect from medication nausea and vomiting since discontinued it. Patient repor ts of the pain has persisted. Reports nausea without emesis. Denies any other complaints at this time. Systemic: Pt denies fatigue, fever/chills, rash. Pt denies weakness, night sweats, weight loss. Neuro: Pt denies headache, visual disturbances, syncope or pre-syncope. HEENT: Pt denies ocular discharge or irritation, otalgia, rhinorrhea, pharyngitis or notable lymphadenopathy. Cardiopulmonary: Pt denies chest pain, SOB, heart palpitations, dyspnea on exertion. Abdominal/GI: Pt denies v/d. : Pt denies dysuria, burning w/ urination, frequency/urgency. Denies new onset urinary or bowel incontinence. MSK: Pt denies myalgia, loss of strength or function in extremities. Neuro: Pt denies new onset weakness, paresthesias. - Related Data Home Medications Medication Instructions Recorded Confirmed Medroxyprogesterone Acetate 150 mg IM Q90D 02/25/19 06/28/19 [Depo-Provera] sitaGLIPtin [Januvia] 50 mg PO HS 02/25/19 06/28/19 Sertraline [Zoloft] 150 mg PO HS 06/28/19 06/28/19 Previous Rx's Medication Instructions Recorded Ciprofloxacin HCl [Cipro] 500 mg PO Q12HR #20 tablet 06/26/19 HYDROcodone/APAP 7.5-325MG [[place]pson 1 tab PO Q6HR PRN 3 Days #12 tab 06/26/19 7.5-325] Ondansetron Odt [Zofran Odt] 4 mg PO Q8HR PRN #10 tab 06/26/19 metroNIDAZOLE [Flagyl] 500 mg PO TID #30 tab 06/26/19 Allergies Allergy/AdvReac Type Severity Reaction Status Date / Time amoxicillin AdvReac flu like Verified 06/28/19 21:55 symptoms codeine AdvReac Nausea Verified 06/28/19 21:55 latex AdvReac pain and Verified 06/28/19 21:55 itching metformin AdvReac DIARRHEA Verified 06/28/19 21:55 AND FLU LIKE SYMPTOMS Penicillins AdvReac flu like Verified 06/28/19 21:55 symptoms Sulfa (Sulfonamide AdvReac flu like Verified 06/28/19 21:55 Antibiotics) symptoms Review of Systems ROS Statement: Those systems with pertinent positive or pertinent negative responses have been documented in the HPI. ROS Other: All systems not noted in ROS Statement are negative. Past Medical History Past Medical History: Hyperlipidemia, Liver Disease Additional Past Medical History / Comment(s): Fatty liver,hx difficulty swallowing, no tx. for diabetes anymore. Left face numbness 01/16/16, red raised rash on arms and legs-went to ER. Lower back pain (bulging L4-5), kidney stones, gallstones History of Any Multi-Drug Resistant Organisms: None Reported Past Surgical History: Bariatric Surgery, Section, Cholecystectomy, Hysterectomy, Tonsillectomy, Uterine Ablation Additional Past Surgical History / Comment(s): exploratory lower abdominal laparoscopy.10-11-15 lap brenda en y, recent EGD. epidural on January with orthopedics for back pain, cholecystectomy 02/28/19 Past Anesthesia/Blood Transfusion Reactions: No Reported Reaction Additional Past Anesthesia/Blood Transfusion Reaction / Comment(s): claustrophobia Past Psychological History: Depression Smoking Status: Never smoker Past Alcohol Use History: Occasional Past Drug Use History: None Reported - Past Family History Mother Family Medical History: Congestive Heart Failure (CHF), Fibromyalgia Additional Family Medical History / Comment(s): at 43 from heart failure General Exam - General Exam Comments Initial Comments: Constitutional: NAD, AOX3, Pt has pleasant affect. HEENT: NC/AT, trachea midline, neck supple, no lymphadenopathy. Posterior pharynx non erythematous, without exudates. External ears appear normal, without discharge. Mucous membranes moist. Eyes PERRLA, EOM intact. There is no scleral icterus. No pallor noted. Cardiopulmonary: RRR, no murmurs, rubs or gallops, no JVD noted. Lungs CTAB in anterior and posterior lopez. No peripheral edema. Abdominal exam: Abdomen soft and non-distended. Abdomen mildly tender to palpation left lower quadrant region. There is no other areas of abdominal ten derness.. Bowel sounds active in LLQ. No hepatosplenomegaly. No ecchymosis Neuro: CN II-XII grossly intact. No nuchal rigidity. No raccon eyes, no hunter sign, no hemotympanum. No cervical spinal tenderness. MSK: No posterior calf tenderness bilaterally, homans sign negative bilaterally. Posterior tibialis and radial pulse +2 bilaterally. Sensation intact in upper and lower extremities. Full active ROM in upper and lower extremities, 5/5 stregnth. Limitations: no limitations Course Vital Signs 06/28/19 19:39 Temperature 98.1 F Pulse Rate 90 Respiratory 18 Rate Blood Pressure 123/78 O2 Sat by Pulse 99 Oximetry Medical Decision Making - Medical Decision Making 39-year-old female patient past history of cholecystectomy, hysterectomy, tonsillectomy, bariatric surgery, hyperlipidemia, fatty liver disease presents ED for chief complaint of left lower quadrant pain. Patient was seen in this emergency department on 06/26 and diagnosed with diverticulitis. Patient reports that she took 2 days worth of ciprofloxacin and Flagyl however is having adverse effect from medication nausea and vomiting since discontinued it. Patient reports of the pain has persisted. Reports nausea without emesis. Denies any other complaints at this time. Patient vital signs are stable, febrile. Physical exam is the left lower quadrant mildly tender to palpation. Laboratory investigations are overall non-impressive. Initiation initiated on Rocephin and Levaquin. He'll be admitted for failed outpatient diverticulitis. Case discussed with Dr. Newton. - Lab Data Result diagrams: 06/28/19 20:30 06/28/19 20:30 Lab Results 06/28/19 06/28/19 06/28/19 Range/Units 20:30 20:30 20:30 WBC 5.7 (3.8-10.6) k/uL RBC 4.38 (3.80-5.40) m/uL Hgb 12.8 (11.4-16.0) gm/dL Hct 39.4 (34.0-46.0) % MCV 89.8 (80.0-100.0) fL MCH 29.2 (25.0-35.0) pg MCHC 32.5 (31.0-37.0) g/dL RDW 15.0 (11.5-15.5) % Plt Count 247 (150-450) k/uL Neutrophils % 70 % Lymphocytes % 20 % Monocytes % 6 % Eosinophils % 2 % Basophils % 1 % Neutrophils # 4.0 (1.3-7.7) k/uL Lymphocytes # 1.2 (1.0-4.8) k/uL Monocytes # 0.3 (0-1.0) k/uL Eosinophils # 0.1 (0-0.7) k/uL Basophils # 0.1 (0-0.2) k/uL Sodium 138 (137-145) mmol/L Potassium 4.7 (3.5-5.1) mmol/L Chloride 108 H (98-107) mmol/L Carbon Dioxide 22 (22-30) mmol/L Anion Gap 8 mmol/L BUN 11 (7-17) mg/dL Creatinine 0.66 (0.52-1.04) mg/dL Est GFR (CKD-EPI)AfAm >90 (>60 ml/min/1.73 sqM) Est GFR (CKD-EPI)NonAf >90 (>60 ml/min/1.73 sqM) Glucose 101 H (74-99) mg/dL Plasma Lactic Acid Ulises 0.9 (0.7-2.0) mmol/L Calcium 9.2 (8.4-10.2) mg/dL Total Bilirubin 0.3 (0.2-1.3) mg/dL AST 43 H (14-36) U/L ALT 47 H (4-34) U/L Alkaline Phosphatase 122 (38-126) U/L Total Protein 7.2 (6.3-8.2) g/dL Albumin 4.2 (3.5-5.0) g/dL Lipase 174 (23-300) U/L Urine Color Urine Appearance (Clear) Urine pH (5.0-8.0) Ur Specific Kemp (1.001-1.035) Urine Protein (Negative) Urine Glucose (UA) (Negative) Urine Ketones (Negative) Urine Blood (Negative) Urine Nitrite (Negative) Urine Bilirubin (Negative) Urine Urobilinogen (<2.0) mg/dL Ur Leukocyte Esterase (Negative) Urine RBC (0-5) /hpf Urine WBC (0-5) /hpf Ur Squamous Epith Cells (0-4) /hpf Urine Bacteria (None) /hpf Urine Mucus (None) /hpf Urine HCG, Qual (Not Detectd) 06/28/19 06/28/19 Range/Units 20:30 20:30 WBC (3.8-10.6) k/uL RBC (3.80-5.40) m/uL Hgb (11.4-16.0) gm/dL Hct (34.0-46.0) % MCV (80.0-100.0) fL MCH (25.0-35.0) pg MCHC (31.0-37.0) g/dL RDW (11.5-15.5) % Plt Count (150-450) k/uL Neutrophils % % Lymphocytes % % Monocytes % % Eosinophils % % Basophils % % Neutrophils # (1.3-7.7) k/uL Lymphocytes # (1.0-4.8) k/uL Monocytes # (0-1.0) k/uL Eosinophils # (0-0.7) k/uL Basophils # (0-0.2) k/uL Sodium (137-145) mmol/L Potassium (3.5-5.1) mmol/L Chloride (98-107) mmol/L Carbon Dioxide (22-30) mmol/L Anion Gap mmol/L BUN (7-17) mg/dL Creatinine (0.52-1.04) mg/dL Est GFR (CKD-EPI)AfAm (>60 ml/min/1.73 sqM) Est GFR (CKD-EPI)NonAf (>60 ml/min/1.73 sqM) Glucose (74-99) mg/dL Plasma Lactic Acid Ulises (0.7-2.0) mmol/L Calcium (8.4-10.2) mg/dL Total Bilirubin (0.2-1.3) mg/dL AST (14-36) U/L ALT (4-34) U/L Alkaline Phosphatase (38-126) U/L Total Protein (6.3-8.2) g/dL Albumin (3.5-5.0) g/dL Lipase (23-300) U/L Urine Color Light Yellow Urine Appearance Clear (Clear) Urine pH 6.0 (5.0-8.0) Ur Specific Kemp 1.009 (1.001-1.035) Urine Protein Negative (Negative) Urine Glucose (UA) Negative (Negative) Urine Ketones Negative (Negative) Urine Blood Small H (Negative) Urine Nitrite Negative (Negative) Urine Bilirubin Negative (Negative) Urine Urobilinogen <2.0 (<2.0) mg/dL Ur Leukocyte Esterase Negative (Negative) Urine RBC 3 (0-5) /hpf Urine WBC 1 (0-5) /hpf Ur Squamous Epith Cells 7 H (0-4) /hpf Urine Bacteria Rare H (None) /hpf Urine Mucus Rare H (None) /hpf Urine HCG, Qual Not Detected (Not Detectd) Disposition Clinical Impression: Diverticulitis Disposition: ADMITTED IP TO THIS [facility] Condition: Serious Referrals: Aurelio Miller Jr, [Primary Care Provider] - 1-2 days
[2019-06-28] MEDS ORDERED: LEVOFLOXACIN 750MG-D5W PMX 750 MG in DEXTROSE/WATER 1 150ML.BAG IVPB SCH (22:15)
[2019-06-28] MEDS: SODIUM CHLORIDE 0.9% 1,000 ML IV SCH (22:20)
[2019-06-29] MEDS ORDERED: LINAGLIPTIN 5 MG TABLET PO SCH (00:15)
[2019-06-29] MEDS: SERTRALINE 50 MG TAB PO SCH ×2 (01:07→22:12)
[2019-06-29] MEDS: clonazePAM 0.5 MG TAB PO SCH ×2 (01:07→22:12)
[2019-06-29] MEDS: SERTRALINE 100 MG TAB PO SCH ×2 (01:07→22:12)
[2019-06-29] MEDS: MORPHINE SULFATE 2 MG/ML SYRINGE IVP PRN ×3 (01:08→23:02)
[2019-06-29] MEDS: ONDANSETRON 4 MG/2 ML VIAL IVP PRN ×2 (01:31→22:57)
[2019-06-29] MEDS: HYDROcodone/APAP 7.5-325MG 1 EACH TAB PO PRN ×4 (02:13→21:28)
[2019-06-29 07:11] LABS: Glucose,Whole Blood 101 mg/dL (75-99)
[2019-06-29 07:25] LABS: Basophils % (A) 1 %; Eosinophils # (A) 0.1 k/uL (0-0.7); Eosinophils % (A) 2 %; HCT 37.3 % (34.0-46.0); HGB 11.8 gm/dL (11.4-16.0); Lymphocytes # (A) 1.3 k/uL (1.0-4.8); Lymphocytes % (A) 30 %; MCH 28.9 pg (25.0-35.0); MCHC 31.7 g/dL (31.0-37.0); MCV 91.3 fL (80.0-100.0); Mean Platelet Volume 7.1; Monocytes # (A) 0.2 k/uL (0-1.0); Monocytes % (A) 6 %; Neutrophils # (A) 2.5 k/uL (1.3-7.7); Neutrophils % (A) 59 %; Platelet Count 217 k/uL (150-450); RBC 4.09 m/uL (3.80-5.40); WBC 4.3 k/uL (3.8-10.6)
[2019-06-29 07:41] LABS: ALT 69 U/L (4-34); AST 129 U/L (14-36); African American GFR (CKD) >90 (>60 ml/min/1.73 sqM); Albumin 3.5 g/dL (3.5-5.0); Alkaline Phosphatase 192 U/L (38-126); Anion Gap 8 mmol/L; Blood Urea Nitrogen 9 mg/dL (7-17); Calcium 8.4 mg/dL (8.4-10.2); Carbon Dioxide 22 mmol/L (22-30); Chloride 109 mmol/L (98-107); Glucose 100 mg/dL (74-99); Non-African American GFR(CKD) >90 (>60 ml/min/1.73 sqM); Sodium 139 mmol/L (137-145); Total Bilirubin 0.3 mg/dL (0.2-1.3); Total Protein 6.3 g/dL (6.3-8.2)
[2019-06-29] MEDS: SODIUM CHLORIDE 0.9% 1,000 ML IV SCH ×2 (07:43→15:17)
[2019-06-29] MEDS ORDERED: diphenhydrAMINE 50 MG CAP PO PRN (11:25)
[2019-06-29 11:44] LABS: Glucose,Whole Blood 102 mg/dL (75-99)
--- NOTE | 2019-06-29 12:00 | P.HPIM ---
History of Present Illness H&P Date: 06/29/19 Chief Complaint: Diverticulitis acute Patient was actually seen in the office approximately 5 days ago was sent for a CT abdomen which resulted in probable diverticulitis diverticulosis patient was started on oral Flagyl and oral Cipro had not completed a full day's dose and presented to the emergency room with complaint of abdominal pain left lower quadrant and intermittent pruritus CT from the day before demonstrated probable inflammatory process in the distal left colon consistent with diverticulitis patient has multiple diverticuli in the distal right colon also patient has status post Magaly-en-Y gastric bypass for bariatrics. Also patient underwent a cholecystectomy approximately 9 months ago. Patient also drinks wine almost daily, appears to be depressed, and anxious Past Medical History Past Medical History: Diabetes Mellitus, Hyperlipidemia, Liver Disease Additional Past Medical History / Comment(s): Fatty liver,hx difficulty swallowing, no tx. for diabetes anymore. Left face numbness 01/16/16, red raised rash on arms and legs-went to ER. Lower back pain (bulging L4-5), kidney stones, gallstones History of Any Multi-Drug Resistant Organisms: None Reported Past Surgical History: Bariatric Surgery, Section, Cholecystectomy, Hysterectomy, Tonsillectomy, Uterine Ablation Additional Past Surgical History / Comment(s): exploratory lower abdominal laparoscopy.10-11-15 lap magaly en y, recent EGD. epidural on January with orthopedics for back pain, cholecystectomy 02/28/19 Past Anesthesia/Blood Transfusion Reactions: No Reported Reaction Additional Past Anesthesia/Blood Transfusion Reaction / Comment(s): claustrophobia Past Psychological History: Depression Smoking Status: Never smoker Past Alcohol Use History: Occasional Past Drug Use History: None Reported - Past Family History Mother Family Medical History: Congestive Heart Failure (CHF), Fibromyalgia Additional Family Medical History / Comment(s): at 43 from heart failure Medications and Allergies Home Medications Medication Instructions Recorded Confirmed Type Medroxyprogesterone Acetate 150 mg IM Q90D 02/25/19 06/28/19 History [Depo-Provera] sitaGLIPtin [Januvia] 50 mg PO HS 02/25/19 06/28/19 History Ciprofloxacin HCl [Cipro] 500 mg PO Q12HR #20 tablet 06/26/19 06/28/19 Rx HYDROcodone/APAP 7.5-325MG [[place] 1 tab PO Q6HR PRN 3 Days #12 tab 06/26/19 06/28/19 Rx 7.5-325] Ondansetron Odt [Zofran Odt] 4 mg PO Q8HR PRN #10 tab 06/26/19 06/28/19 Rx metroNIDAZOLE [Flagyl] 500 mg PO TID #30 tab 06/26/19 06/28/19 Rx Sertraline HCl [Zoloft] 50 mg PO HS 06/28/19 06/28/19 History Sertraline [Zoloft] 100 mg PO HS 06/28/19 06/28/19 History Allergies Allergy/AdvReac Type Severity Reaction Status Date / Time amoxicillin AdvReac flu like Verified 06/28/19 21:55 symptoms codeine AdvReac Nausea Verified 06/28/19 21:55 latex AdvReac pain and Verified 06/28/19 21:55 itching metformin AdvReac DIARRHEA Verified 06/28/19 21:55 AND FLU LIKE SYMPTOMS Penicillins AdvReac flu like Verified 06/28/19 21:55 symptoms Sulfa (Sulfonamide AdvReac flu like Verified 06/28/19 21:55 Antibiotics) symptoms Physical Exam Osteopathic Statement: *. No significant issues noted on an osteopathic structu ral exam other than those noted in the History and Physical/Consult. Vitals: Vital Signs Temp Pulse Pulse Resp BP BP Pulse Ox 06/29/19 07:00 97.9 F 73 17 99/58 97 06/29/19 00:15 99.4 F 83 16 128/86 06/28/19 22:23 98.7 F 79 18 129/86 97 06/28/19 19:39 98.1 F 90 18 123/78 99 Intake and Output 06/28/19 06/29/19 06/29/19 22:59 06:59 14:59 Other: # Voids 1 Weight 108.862 kg 108.862 kg General: [Patient awake, alert and oriented times 3. Patient in no acute distress.] HEENT: [PERRL. EOMI. No pharyngeal erythema or exudate.] Neck: [No adenopathy.] Cardiac: [Heart regular in rate and rhythm. No S3. No S4. No clicks, rubs. No murmur.] Lungs: [Clear to auscultation bilaterally.] Abdomen: [No mass. No organomegaly. Morbid obesity, Bowel sounds presnt and normoactive in all 4 quadrants.] Mild diffuse tenderness with most concentrating on the left Status post Magaly-en-Y bariatric procedure for weight loss, patent has not successfully lost weight as in fact gained weight Extremes: [No edema no cyanosis no claudication normal pulses] : Normal female genitalia Musculoskeletal: [No joint erythema, edema or tenderness.] Skin: [No rash.] Neurologic: [No lateralizing deficits. CN II - XII grossly intact.] Lymphatic: [No adenopathy.] Results CBC & Chem 7: 06/29/19 06:52 06/29/19 06:52 Labs: Abnormal Lab Results - Last 24 Hours (Table) 06/28/19 06/28/19 06/29/19 Range/Units 20:30 20:30 06:52 Chloride 108 H 109 H (98-107) mmol/L Glucose 101 H 100 H (74-99) mg/dL POC Glucose (mg/dL) (75-99) mg/dL AST 43 H 129 H (14-36) U/L ALT 47 H 69 H (4-34) U/L Alkaline Phosphatase 192 H (38-126) U/L Urine Blood Small H (Negative) Ur Squamous Epith Cells 7 H (0-4) /hpf Urine Bacteria Rare H (None) /hpf Urine Mucus Rare H (None) /hpf 06/29/19 06/29/19 Range/Units 07:05 11:41 Chloride (98-107) mmol/L Glucose (74-99) mg/dL POC Glucose (mg/dL) 101 H 102 H (75-99) mg/dL AST (14-36) U/L ALT (4-34) U/L Alkaline Phosphatase (38-126) U/L Urine Blood (Negative) Ur Squamous Epith Cells (0-4) /hpf Urine Bacteria (None) /hpf Urine Mucus (None) /hpf Thrombosis Risk Factor Assmnt - Choose All That Apply Any of the Below Risk Factors Present?: Yes Each Factor Represents 1 point: Obesity (BMI >25) Thrombosis Risk Factor Assessment Total Risk Factor Score: 1 Thrombosis Risk Factor Assessment Level: Low Risk Assessment and Plan (1) Alcohol abuse Current Visit: Yes Status: Acute Code(s): F10.10 - ALCOHOL ABUSE, UNCOMPLICATED SNOMED Code(s): 51041052 (2) Diverticulitis Current Visit: Yes Status: Acute Code(s): K57.92 - DVTRCLI OF INTEST, PART UNSP, W/O PERF OR ABSCESS W/O BLEED SNOMED Code(s): 924779675 (3) Abdominal pain Current Visit: No Status: Acute Code(s): R10.9 - UNSPECIFIED ABDOMINAL PAIN SNOMED Code(s): 81788181 (4) Abdominal wall abscess at site of surgical wound Current Visit: No Status: Acute Code(s): L03.311 - CELLULITIS OF ABDOMINAL WALL SNOMED Code(s): 618006356 (5) Dehydration Current Visit: No Status: Acute Code(s): E86.0 - DEHYDRATION SNOMED Code(s): 88153993 (6) Gastric bypass status for obesity Current Visit: No Status: Acute Code(s): Z98.84 - BARIATRIC SURGERY STATUS SNOMED Code(s): 687061974 (7) History of Magaly-en-Y gastric bypass Current Visit: No Status: Acute Code(s): Z98.84 - BARIATRIC SURGERY STATUS SNOMED Code(s): 981453634 (8) Morbid obesity with BMI of 50.0-59.9, adult Current Visit: No Status: Acute Code(s): E66.01 - MORBID (SEVERE) OBESITY DUE TO EXCESS CALORIES SNOMED Code(s): 098874652 (9) Nausea & vomiting Current Visit: No Status: Acute Code(s): R11.2 - NAUSEA WITH VOMITING, UNSPECIFIED SNOMED Code(s): 20961901 Plan: Diverticulitis failed outpatient therapy IV Cipro, IV Flagyl Clear liquid diet for now By mouth [place] for mild to moderate pain, morphine for moderate to severe pain Bentyl by mouth 3 times a day for gastric spasm Consultation with Dr. Salinas Gen. surgery patient has a EGD scheduled for I believe the we can get the colon call down would consider colonoscopy as well or changing the appointment for a later date once a gastric tract has calm down Also probable fatty liver disease although recently told me that she drinks 1-2 glasses of wine almost nightly Time with Patient: Greater than 30
[2019-06-29 13:41] LABS: Glucose,Whole Blood 110 mg/dL (75-99)
[2019-06-29 16:50] LABS: Glucose,Whole Blood 111 mg/dL (75-99)
[2019-06-29 20:18] LABS: Glucose,Whole Blood 133 mg/dL (75-99)
[2019-06-29] MEDS ORDERED: SITAGLIPTIN 50 MG PO SCH (21:00)
[2019-06-29] MEDS ORDERED: MELATONIN 3 MG TABLET PO SCH (21:00)
[2019-06-29] MEDS: diphenhydrAMINE 25 MG CAP PO PRN (21:28)
[2019-06-29] MEDS ORDERED: LEVOFLOXACIN 750MG-D5W PMX 750 MG in DEXTROSE/WATER 1 150ML.BAG IVPB SCH (22:15)
[2019-06-30] MEDS: SODIUM CHLORIDE 0.9% 1,000 ML IV SCH ×2 (02:29→17:41)
[2019-06-30] MEDS: HYDROcodone/APAP 7.5-325MG 1 EACH TAB PO PRN ×3 (03:17→18:21)
[2019-06-30 04:41] VITALS: RESP 16
[2019-06-30 06:57] LABS: Glucose,Whole Blood 118 mg/dL (75-99)
[2019-06-30] MEDS: MORPHINE SULFATE 2 MG/ML SYRINGE IVP PRN (08:17)
[2019-06-30] MEDS: diphenhydrAMINE 25 MG CAP PO PRN (08:56)
[2019-06-30 11:58] LABS: Glucose,Whole Blood 118 mg/dL (75-99)
[2019-06-30 14:51] VITALS: BP 119/77; PULSE 76; TEMP 98.1
--- NOTE | 2019-06-30 16:07 | P.PN ---
Subjective Progress Note Date: 06/30/19 Patient was actually seen in the office approximately 5 days ago was sent for a CT abdomen which resulted in probable diverticulitis diverticulosis patient was started on oral Flagyl and oral Cipro had not completed a full day's dose and presented to the emergency room with complaint of abdominal pain left lower quadrant and intermittent pruritus CT from the day before demonstrated probable inflammatory process in the distal left colon consistent with diverticulitis patient has multiple diverticuli in the distal right colon also patient has status post Magaly-en-Y gastric bypass for bariatrics. Also patient underwent a cholecystectomy approximately 9 months ago. Patient also drinks wine almost daily, appears to be depressed, and anxious. 06/30/2019 tolerating consistent carb diet with no nausea, or vomiting complains of mild mid epigastric discomfort. Reports tender left lower quadrant cramping. Reports she is scheduled next week with Dr. Salinas for endoscopy regarding difficulty swallowing food and pills. Vital signs stable. Afebrile. Objective - Vital Signs Vital signs: Vital Signs Temp 98.1 F 06/30/19 14:51 Pulse 76 06/30/19 14:51 Resp 16 06/30/19 14:51 BP 119/77 06/30/19 14:51 Pulse Ox 98 06/30/19 14:51 Intake & Output 06/29/19 06/30/19 06/30/19 18:59 06:59 18:59 Intake Total 200 Balance 200 Intake: Intake, IV Titration 200 Amount Levofloxacin 750Mg-D5w 150 Pmx 750 mg In Dextrose/ Water 1 150ml.bag @ 100 mls/hr IVPB Q24H [facility] Rx#: [id number] cefTRIAXone 1 gm In 50 Sodium Chloride 0.9% 50 ml @ 100 mls/hr IVPB Q24H [facility] Rx#:[id number] Other: # Voids 1 2 1 # Bowel Movements 1 - Exam General: [Patient awake, alert and oriented times 3. Patient in no acute distress.] HEENT: [PERRL. EOMI. No pharyngeal erythema or exudate.] Neck: [No adenopathy.] Cardiac: [Heart regular in rate and rhythm. No S3. No S4. No clicks, rubs. No murmur.] Lungs: [Clear to auscultation bilaterally.] Abdomen: [No mass. No organomegaly. Morbid obesity, Bowel sounds presnt and normoactive in all 4 quadrants.] Mild diffuse tenderness, left lower quadrant. Extremes: [No edema no cyanosis no claudication normal pulses] Musculoskeletal: [No joint erythema, edema or tenderness.] Skin: [No rash.] Neurologic: [No lateralizing deficits. CN II - XII grossly intact.] Lymphatic: [No adenopathy.] - Labs CBC & Chem 7: 06/29/19 06:52 06/29/19 06:52 Labs: Abnormal Lab Results - Last 24 Hours (Table) 06/29/19 06/29/19 06/30/19 Range/Units 16:49 20:16 06:54 POC Glucose (mg/dL) 111 H 133 H 118 H (75-99) mg/dL 06/30/19 Range/Units 11:46 POC Glucose (mg/dL) 118 H (75-99) mg/dL Assessment and Plan Assessment: (1) Alcohol abuse Current Visit: Yes Status: Acute Code(s): F10.10 - ALCOHOL ABUSE, UNCOMPLICATED SNOMED Code(s): 72716572 (2) Diverticulitis Current Visit: Yes Status: Acute Code(s): K57.92 - DVTRCLI OF INTEST, PART UNSP, W/O PERF OR ABSCESS W/O BLEED SNOMED Code(s): 660208485 (3) Abdominal pain Current Visit: No Status: Acute Code(s): R10.9 - UNSPECIFIED ABDOMINAL PAIN SNOMED Code(s): 57750160 (4) Abdominal wall abscess at site of surgical wound Current Visit: No Status: Acute Code(s): L03.311 - CELLULITIS OF ABDOMINAL WALL SNOMED Code(s): 901967157 (5) Dehydration Current Visit: No Status: Acute Code(s): E86.0 - DEHYDRATION SNOMED Code(s): 77111700 (6) Gastric bypass status for obesity Current Visit: No Status: Acute Code(s): Z98.84 - BARIATRIC SURGERY STATUS SNOMED Code(s): 844907234 (7) History of Magaly-en-Y gastric bypass Current Visit: No Status: Acute Code(s): Z98.84 - BARIATRIC SURGERY STATUS SNOMED Code(s): 093189941 (8) Morbid obesity with BMI of 50.0-59.9, adult Current Visit: No Status: Acute Code(s): E66.01 - MORBID (SEVERE) OBESITY DUE TO EXCESS CALORIES SNOMED Code(s): 949089615 (9) Nausea & vomiting Current Visit: No Status: Acute Code(s): R11.2 - NAUSEA WITH VOMITING, UNSPECIFIED SNOMED Code(s): 24566277 Plan: Continue on current medication regime ,monitoring and symptomatic treatment. Increase ambulation as tolerated. Continue on IV antibiotics of Cipro, Flagyl. Discharge planning in progress pending surgery evaluation and clearance. The impression and plan of care has been dictated as directed. : I performed a history and examination of this patient, discussed the same with the dictator. I agree with the dictator's note ,documented as a scribe. Any additional findings or plans will be noted.
[2019-06-30 16:51] LABS: Glucose,Whole Blood 110 mg/dL (75-99)
--- NOTE | 2019-06-30 17:45 | P.DS ---
Providers Date of admission: 06/28/19 23:05 Expected date of discharge: 06/30/19 Attending physician: Aurelio Miller Consults: 06/30/19 06:00 Consult Physician Routine Consulting Provider: Margaret Jackson Consult Reason/Comments: diverticulitis with bariatric sx hx Do you want consulting provider notified?: Yes Primary care physician: [facility] Course: Patient was actually seen in the office approximately 5 days ago was sent for a CT abdomen which resulted in probable diverticulitis diverticulosis patient was started on oral Flagyl and oral Cipro had not completed a full day's dose and presented to the emergency room with complaint of abdominal pain left lower quadrant and intermittent pruritus CT from the day before demonstrated probable inflammatory process in the distal left colon consistent with diverticulitis patient has multiple diverticuli in the distal right colon also patient has status post Magaly-en-Y gastric bypass for bariatrics. Also patient underwent a cholecystectomy approximately 9 months ago. Patient also drinks wine almost daily, appears to be depressed, and anxious. 06/30/2019 tolerating consistent carb diet with no nausea, or vomiting complains of mild mid epigastric discomfort. Reports tender left lower quadrant cramping. Reports she is scheduled next week with Dr. Salinas for endoscopy regarding difficulty swallowing food and pills. Vital signs stable. Afebrile. addendum 06/30/2019 cleared by surgery and overall better, pateint sent home to resume her abx, pain mes she has Patient Condition at Discharge: Fair Plan - Discharge Summary Discharge Rx Participant: No New Discharge Prescriptions: New diphenhydrAMINE [Benadryl] 50 mg PO QID PRN cap PRN Reason: Itching Melatonin 3 mg PO HS tablet Continue sitaGLIPtin [Januvia] 50 mg PO HS Medroxyprogesterone Acetate [Depo-Provera] 150 mg IM Q90D Ciprofloxacin HCl [Cipro] 500 mg PO Q12HR #20 tablet metroNIDAZOLE [Flagyl] 500 mg PO TID #30 tab HYDROcodone/APAP 7.5-325MG [[place] 7.5-325] 1 tab PO Q6HR PRN 3 Days #12 tab PRN Reason: pain Ondansetron Odt [Zofran ODT] 4 mg PO Q8HR PRN #10 tab PRN Reason: Nausea Sertraline [Zoloft] 100 mg PO HS Sertraline HCl [Zoloft] 50 mg PO HS Discharge Medication List Medroxyprogesterone Acetate [Depo-Provera] 150 mg IM Q90D 02/25/19 [History] sitaGLIPtin [Januvia] 50 mg PO HS 02/25/19 [History] Ciprofloxacin HCl [Cipro] 500 mg PO Q12HR #20 tablet 06/26/19 [Rx] HYDROcodone/APAP 7.5-325MG [[place] 7.5-325] 1 tab PO Q6HR PRN 3 Days #12 tab 06/26/19 [Rx] Ondansetron Odt [Zofran ODT] 4 mg PO Q8HR PRN #10 tab 06/26/19 [Rx] metroNIDAZOLE [Flagyl] 500 mg PO TID #30 tab 06/26/19 [Rx] Sertraline HCl [Zoloft] 50 mg PO HS 06/28/19 [History] Sertraline [Zoloft] 100 mg PO HS 06/28/19 [History] Melatonin 3 mg PO HS tablet 06/30/19 [Rx] diphenhydrAMINE [Benadryl] 50 mg PO QID PRN cap 06/30/19 [Rx] Follow up Appointment(s)/Referral(s): Aurelio Miller Jr, DO [Primary Care Provider] - 1-2 days Margaret Jackson MD [STAFF PHYSICIAN] - 1 Week Activity/Diet/Wound Care/Special Instructions: Pt has home meds in the [facility] Discharge Disposition: HOME SELF-CARE
--- NOTE | 2019-06-30 17:59 | P.GSCN ---
History of Present Illness Consult date: 06/30/19 History of present illness: Patient seen and evaluated. She reports food is getting stuck. She can tolerate liquids. CT of the abdomen and pelvis independently reviewed with mild descending colitis. She responded to IV antibiotics. Colonoscopy contraindicated for acute diverticulitis attack. May proceed with outpatient EGD in 1 week. Otherwise, agreeable with discharge Past Medical History Past Medical History: Diabetes Mellitus, Hyperlipidemia, Liver Disease Additional Past Medical History / Comment(s): Fatty liver,hx difficulty swallowing, no tx. for diabetes anymore. Left face numbness 01/16/16, red raised rash on arms and legs-went to ER. Lower back pain (bulging L4-5), kidney stones, gallstones History of Any Multi-Drug Resistant Organisms: None Reported Past Surgical History: Bariatric Surgery, Section, Cholecystectomy, Hysterectomy, Tonsillectomy, Uterine Ablation Additional Past Surgical History / Comment(s): exploratory lower abdominal laparoscopy.10-11-15 lap brenda en y, recent EGD. epidural on January with orthopedics for back pain, cholecystectomy 02/28/19 Past Anesthesia/Blood Transfusion Reactions: No Reported Reaction Additional Past Anesthesia/Blood Transfusion Reaction / Comm: claustrophobia Past Psychological History: Depression Smoking Status: Never smoker Past Alcohol Use History: Occasional Past Drug Use History: None Reported - Past Family History Mother Family Medical History: Congestive Heart Failure (CHF), Fibromyalgia Additional Family Medical History / Comment(s): at 43 from heart failure Medications and Allergies Home Medications Medication Instructions Recorded Confirmed Type Medroxyprogesterone Acetate 150 mg IM Q90D 02/25/19 06/28/19 History [Depo-Provera] sitaGLIPtin [Januvia] 50 mg PO HS 02/25/19 06/28/19 History Ciprofloxacin HCl [Cipro] 500 mg PO Q12HR #20 tablet 06/26/19 06/28/19 Rx HYDROcodone/APAP 7.5-325MG [[place] 1 tab PO Q6HR PRN 3 Days #12 tab 06/26/19 06/28/19 Rx 7.5-325] Ondansetron Odt [Zofran ODT] 4 mg PO Q8HR PRN #10 tab 06/26/19 06/28/19 Rx metroNIDAZOLE [Flagyl] 500 mg PO TID #30 tab 06/26/19 06/28/19 Rx Sertraline HCl [Zoloft] 50 mg PO HS 06/28/19 06/28/19 History Sertraline [Zoloft] 100 mg PO HS 06/28/19 06/28/19 History Melatonin 3 mg PO HS tablet 06/30/19 Rx diphenhydrAMINE [Benadryl] 50 mg PO QID PRN cap 06/30/19 Rx Allergies Allergy/AdvReac Type Severity Reaction Status Date / Time amoxicillin AdvReac flu like Verified 06/28/19 21:55 symptoms codeine AdvReac Nausea Verified 06/28/19 21:55 latex AdvReac pain and Verified 06/28/19 21:55 itching metformin AdvReac DIARRHEA Verified 06/28/19 21:55 AND FLU LIKE SYMPTOMS Penicillins AdvReac flu like Verified 06/28/19 21:55 symptoms Sulfa (Sulfonamide AdvReac flu like Verified 06/28/19 21:55 Antibiotics) symptoms Surgical - Exam Vital Signs Temp Pulse Resp BP Pulse Ox 98.1 F 90 18 123/78 99 06/28/19 19:39 06/28/19 19:39 06/28/19 19:39 06/28/19 19:39 06/28/19 19:39 Results - Labs 06/29/19 06:52 06/29/19 06:52 Abnormal Lab Results - Last 24 Hours (Table) 06/29/19 06/30/19 06/30/19 Range/Units 20:16 06:54 11:46 POC Glucose (mg/dL) 133 H 118 H 118 H (75-99) mg/dL 06/30/19 Range/Units 16:37 POC Glucose (mg/dL) 110 H (75-99) mg/dL
[2019-06-30] MEDS ORDERED: LEVOFLOXACIN 750 MG TAB PO SCH (23:00)
== END 2019-06-30 18:25 | disposition home or self-care (01) | DRG 392 ==
LOC: EC 19:18 → 4SSUR 23:05
PROVIDERS: ADMIT Family Medicine; ATTEND Family Medicine
DX: K57.32 Diverticulitis of large intestine without perforation or abscess without bleeding (principal); Z68.41 Body mass index [BMI] 40.0-44.9, adult; E11.9 Type 2 diabetes mellitus without complications; E66.01 Morbid (severe) obesity due to excess calories; E78.5 Hyperlipidemia, unspecified; F10.10 Alcohol abuse, uncomplicated; F32.9 Major depressive disorder, single episode, unspecified; F40.240 Claustrophobia; K76.0 Fatty (change of) liver, not elsewhere classified; L29.9 Pruritus, unspecified; Z79.84 Long term (current) use of oral hypoglycemic drugs; Z79.899 Other long term (current) drug therapy; Z88.5 Allergy status to narcotic agent; Z88.0 Allergy status to penicillin; Z88.2 Allergy status to sulfonamides; Z88.8 Allergy status to other drugs, medicaments and biological substances; Z91.040 Latex allergy status; Z87.442 Personal history of urinary calculi; Z90.49 Acquired absence of other specified parts of digestive tract; Z90.710 Acquired absence of both cervix and uterus; Z98.84 Bariatric surgery status; Z82.49 Family history of ischemic heart disease and other diseases of the circulatory system; Z82.69 Family history of other diseases of the musculoskeletal system and connective tissue
CPT/HCPCS: 36415; 80053; 81001; 81025; 83605; 83690; 85025; 96365; 96375; 99285

== ENCOUNTER → 2019-07-07 | Day surgery (SDC) | payer OTHER ==
[2019-07-03 12:01] VITALS: BMI 42.0
--- NOTE | 2019-07-06 18:43 | P.GSHP ---
History of Present Illness H&P Date: 07/07/19 CHIEF COMPLAINT: GERD HISTORY OF PRESENT ILLNESS: The patient is a 39-year-old female who presents reports gastroesophageal reflux disease. Upper endoscopy was offered for further evaluation and management. PAST MEDICAL HISTORY: Please see list. PAST SURGICAL HISTORY: Please see list. MEDICATIONS: Please see list. ALLERGIES: Please see list. SOCIAL HISTORY: No illicit drug use FAMILY HISTORY: No reports of Crohn disease or ulcerative colitis. REVIEW OF ORGAN SYSTEMS: CONSTITUTIONAL: No reports of fevers or chills. GI: Denies any blood in stools or constipation. PHYSICAL EXAM: VITAL SIGNS: Stable GENERAL: Well-developed and pleasant in no acute distress. HEENT: No scleral icterus. Extraocular movements grossly intact. Moist buccal mucosa. NECK: Supple without lymphadenopathy. CHEST: Unlabored respirations. Equal bilateral excursions. CARDIOVASCULAR: Regular rate and rhythm. Distal 2+ pulses. ABDOMEN: Soft, nondistended. MUSCULOSKELETAL: No clubbing, cyanosis, or edema. ASSESSMENT: 1. Gastroesophageal reflux disease PLAN: 1. Recommend proceeding with an upper endoscopy Past Medical History Past Medical History: Diabetes Mellitus, Hyperlipidemia, Liver Disease Additional Past Medical History / Comment(s): Fatty liver,hx difficulty swallowing,. Left face numbness 01/16/16, red raised rash on arms and legs-went to ER, kidney stones, lower back pain(bulging L4-L5), recent admission for diverticulitis History of Any Multi-Drug Resistant Organisms: None Reported Past Surgical History: Bariatric Surgery, Section, Cholecystectomy, Hysterectomy, Tonsillectomy, Uterine Ablation Additional Past Surgical History / Comment(s): exploratory lower abdominal laparoscopy.10-11-15 lap brenda en y,. pain procedures, EGD, cholecystectomy 02/28/19 Past Anesthesia/Blood Transfusion Reactions: No Reported Reaction Additional Past Anesthesia/Blood Transfusion Reaction / Comment(s): claustrophobia Smoking Status: Never smoker - Past Family History Mother Family Medical History: Congestive Heart Failure (CHF), Fibromyalgia Additional Family Medical History / Comment(s): at 43 from heart failure Medications and Allergies Home Medications Medication Instructions Recorded Confirmed Type Medroxyprogesterone Acetate 150 mg IM Q90D 02/25/19 07/03/19 History [Depo-Provera] sitaGLIPtin [Januvia] 50 mg PO HS 02/25/19 07/03/19 History Ciprofloxacin HCl [Cipro] 500 mg PO Q12HR #20 tablet 06/26/19 07/03/19 Rx Ondansetron Odt [Zofran ODT] 4 mg PO Q8HR PRN #10 tab 06/26/19 07/03/19 Rx metroNIDAZOLE [Flagyl] 500 mg PO TID #30 tab 06/26/19 07/03/19 Rx Sertraline [Zoloft] 150 mg PO HS 06/28/19 07/03/19 History diphenhydrAMINE [Benadryl] 50 mg PO QID PRN cap 06/30/19 07/03/19 Rx HYDROcodone/APAP 7.5-325MG [[place] 2 tab PO Q6HR PRN 07/03/19 07/03/19 History 7.5-325] clonazePAM [KlonoPIN] 0.5 mg PO HS 07/03/19 07/03/19 History Allergies Allergy/AdvReac Type Severity Reaction Status Date / Time amoxicillin AdvReac flu like Verified 07/03/19 11:38 symptoms codeine AdvReac Nausea Verified 07/03/19 11:38 latex AdvReac pain and Verified 07/03/19 11:38 itching metformin AdvReac DIARRHEA Verified 07/03/19 11:38 AND FLU LIKE SYMPTOMS Penicillins AdvReac flu like Verified 07/03/19 11:38 symptoms Sulfa (Sulfonamide AdvReac flu like Verified 07/03/19 11:38 Antibiotics) symptoms
[~2019-07-07] MED LIST changes: -DEXAMETHASONE SOD PHOSPHATE 10 MG/ML 1 ML VIAL IV ONE; -HEPARIN SODIUM,PORCINE 5,000 UNIT/ML 1 ML VIAL SQ ONE; +LACTATED RINGERS 1,000 ML IV SCH; -LIDOCAINE 1% 20 ML VIAL (10MG/ML) FOR IV START INTRADERMA PRN; +MIDAZOLAM 2 MG/2 ML VIAL ONE; +PROPOFOL 10 MG/ML 20 ML VIAL IV ONE
[2019-07-07 07:21] LABS: Glucose,Whole Blood 115 mg/dL (75-99)
[2019-07-07 07:22] VITALS: TEMP 98.2
[2019-07-07 07:57] VITALS: RESP 16
--- NOTE | 2019-07-07 08:00 | P.PCN ---
Date of Procedure: 07/07/19 Description of Procedure: PREOPERATIVE DIAGNOSIS: Dysphagia. Nausea with vomiting. Morbid obesity. Diabetes type 2. POSTOPERATIVE DIAGNOSIS: Dysphagia. Nausea with vomiting. Morbid obesity. Diabetes type 2. 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 INDICATIONS: The patient is a 39-year-old female who presents with a history of dysphagia, gastric bypass including nausea and vomiting. Benefits and risks of the procedure were described. Informed consent was obtained. DESCRIPTION: The patient was brought into the endoscopy suite and laid in the left lateral decubitus position. After a timeout was confirmed, the procedure was initiated. An Olympus gastroscope was passed along the posterior oropharynx down to the distal esophagus where the squamocolumnar junction was unremarkable. The gastric pouch was entered. A gastrojejunal stricture of 15 mm was found as the adult gastroscope was 9.5 mm in size. A [employer] [place] balloon dilator was placed through the scope. Final insufflation up to 20 mm was performed with a total of 2 minutes of the gastrojejunal stricture and distal esophagus. The scope was advanced up to 60 cm from the incisors into the Magaly limb. The mucosa of the gastrojejunal anastomosis was intact. No chronic gastrojejunal marginal ulcer was encountered. No full-thickness injury was encountered. The GI tract was desufflated. The patient tolerated the procedure well. FINDINGS: Squamocolumnar junction unremarkable Stricture of approximately 15 mm encountered of gastrojejunal anastomosis Tertiary contractions of the distal esophagus identified also dilated No chronic gastrojejunal ulceration encountered. Successful balloon dilatation to 20 mm. Gastric pouch 3 cm. RECOMMENDATIONS: Upper endoscopy as needed Plan - Discharge Summary Discharge Rx Participant: No New Discharge Prescriptions: New Dicyclomine [Bentyl] 10 mg PO TID #30 capsule Continue sitaGLIPtin [Januvia] 50 mg PO HS Medroxyprogesterone Acetate [Depo-Provera] 150 mg IM Q90D Ciprofloxacin HCl [Cipro] 500 mg PO Q12HR #20 tablet metroNIDAZOLE [Flagyl] 500 mg PO TID #30 tab Ondansetron Odt [Zofran ODT] 4 mg PO Q8HR PRN #10 tab PRN Reason: Nausea Sertraline [Zoloft] 150 mg PO HS diphenhydrAMINE [Benadryl] 50 mg PO QID PRN cap PRN Reason: Itching HYDROcodone/APAP 7.5-325MG [[place] 7.5-325] 2 tab PO Q6HR PRN PRN Reason: pain clonazePAM [KlonoPIN] 0.5 mg PO HS Discharge Medication List Medroxyprogesterone Acetate [Depo-Provera] 150 mg IM Q90D 02/25/19 [History] sitaGLIPtin [Januvia] 50 mg PO HS 02/25/19 [History] Ciprofloxacin HCl [Cipro] 500 mg PO Q12HR #20 tablet 06/26/19 [Rx] Ondansetron Odt [Zofran ODT] 4 mg PO Q8HR PRN #10 tab 06/26/19 [Rx] metroNIDAZOLE [Flagyl] 500 mg PO TID #30 tab 06/26/19 [Rx] Sertraline [Zoloft] 150 mg PO HS 06/28/19 [History] diphenhydrAMINE [Benadryl] 50 mg PO QID PRN cap 06/30/19 [Rx] HYDROcodone/APAP 7.5-325MG [[place] 7.5-325] 2 tab PO Q6HR PRN 07/03/19 [History] clonazePAM [KlonoPIN] 0.5 mg PO HS 07/03/19 [History] Dicyclomine [Bentyl] 10 mg PO TID #30 capsule 07/07/19 [Rx] Follow up App[facility]ment(s)/Ref[facility] [place] [place] [facility] - [facility]/16[facility]19 Patient Instructions/Handouts: Esophageal Dilation (DC) Discharge Disposition: HOME SELF-CARE
[2019-07-07 08:11] VITALS: BP 125/82; PULSE 90
== END | disposition home or self-care (01) ==
LOC: ORWHC2ENDO 06:47
PROVIDERS: ATTEND Surgery Plastic and Reconstructive Surgery
DX: K91.89 Other postprocedural complications and disorders of digestive system (principal); K22.2 Esophageal obstruction; K21.9 Gastro-esophageal reflux disease without esophagitis; Z98.0 Intestinal bypass and anastomosis status; Z98.84 Bariatric surgery status; E11.9 Type 2 diabetes mellitus without complications; E78.5 Hyperlipidemia, unspecified; K76.9 Liver disease, unspecified; K76.0 Fatty (change of) liver, not elsewhere classified; F40.240 Claustrophobia; F32.9 Major depressive disorder, single episode, unspecified; M54.5 Low back pain; E66.01 Morbid (severe) obesity due to excess calories; Z68.41 Body mass index [BMI] 40.0-44.9, adult; Z87.19 Personal history of other diseases of the digestive system; Z98.890 Other specified postprocedural states; Z90.49 Acquired absence of other specified parts of digestive tract; Z90.710 Acquired absence of both cervix and uterus; Z87.442 Personal history of urinary calculi; Z82.69 Family history of other diseases of the musculoskeletal system and connective tissue; Z82.49 Family history of ischemic heart disease and other diseases of the circulatory system; Z79.84 Long term (current) use of oral hypoglycemic drugs; Z79.890 Hormone replacement therapy; Z79.899 Other long term (current) drug therapy; Z88.5 Allergy status to narcotic agent; Z88.0 Allergy status to penicillin; Z88.2 Allergy status to sulfonamides; Z88.8 Allergy status to other drugs, medicaments and biological substances; Z91.040 Latex allergy status
CPT/HCPCS: 43249; J2250; J2405; J2704; C1726

== ENCOUNTER 2019-07-09 21:38 | Emergency (ER) | payer OTHER ==
[2019-07-09 21:43] VITALS: TEMP 98.6
[2019-07-09] MEDS ORDERED: HYDROmorphone 1 MG/ML 1 ML SYRINGE IVP STA (22:55)
[2019-07-09] MEDS ORDERED: SODIUM CHLORIDE 0.9% 1,000 ML IV STA (22:55)
[2019-07-09] MEDS ORDERED: ONDANSETRON 4 MG/2 ML VIAL IVP STA (22:55)
[2019-07-09 23:41] LABS: Basophils # (A) 0.1 k/uL (0-0.2); Basophils % (A) 1 %; Eosinophils # (A) 0.1 k/uL (0-0.7); Eosinophils % (A) 1 %; HCT 39.7 % (34.0-46.0); HGB 12.9 gm/dL (11.4-16.0); Lymphocytes # (A) 1.5 k/uL (1.0-4.8); Lymphocytes % (A) 22 %; MCH 28.7 pg (25.0-35.0); MCHC 32.4 g/dL (31.0-37.0); MCV 88.5 fL (80.0-100.0); Mean Platelet Volume 7.1; Monocytes # (A) 0.3 k/uL (0-1.0); Monocytes % (A) 4 %; Neutrophils # (A) 4.9 k/uL (1.3-7.7); Neutrophils % (A) 70 %; Platelet Count 285 k/uL (150-450); RBC 4.48 m/uL (3.80-5.40); RDW 14.5 % (11.5-15.5)
[2019-07-09 23:43] LABS: Appearance,Urine Cloudy (Clear); Bacteria,Urine Occasional /hpf; Bilirubin,Urine Negative (Negative); Blood,Urine Small (Negative); Color,Urine Light Yellow; Glucose,Urine (UA) Negative (Negative); Hyaline Casts,Urine 10 /lpf (0-2); Ketones,Urine 1+ (Negative); Leukocyte Esterase,Urine Negative (Negative); Mucus,Urine Few /hpf; Nitrite,Urine Negative (Negative); Protein,Urine Trace (Negative); RBC,Urine 2 /hpf (0-5); Specific Gravity,Urine 1.011 (1.001-1.035); Squamous Epithelial Cell,Urine 28 /hpf (0-4); Urobilinogen,Urine <2.0 mg/dL (<2.0); WBC,Urine 2 /hpf (0-5)
[2019-07-09 23:50] LABS: African American GFR (CKD) >90 (>60 ml/min/1.73 sqM); Albumin 4.6 g/dL (3.5-5.0); Amylase 47 U/L (30-110); Anion Gap 14 mmol/L; Calcium 9.4 mg/dL (8.4-10.2); Carbon Dioxide 15 mmol/L (22-30); Chloride 109 mmol/L (98-107); Glucose 89 mg/dL (74-99); Non-African American GFR(CKD) >90 (>60 ml/min/1.73 sqM); Sodium 138 mmol/L (137-145); Total Bilirubin 0.6 mg/dL (0.2-1.3); Total Protein 7.8 g/dL (6.3-8.2)
[2019-07-09 23:52] LABS: AST 45 U/L (14-36); Blood Urea Nitrogen 15 mg/dL (7-17); Potassium 4.5 mmol/L (3.5-5.1)
[2019-07-09 23:53] LABS: ALT 36 U/L (4-34); Alkaline Phosphatase 80 U/L (38-126)
--- NOTE | 2019-07-10 00:24 | CT ---
EXAMINATION TYPE: CT abdomen pelvis w con DATE OF EXAM: 07/10/2019 COMPARISON: 06/26/2019 HISTORY: Abdominal pain that radiates to back CT DLP: 2465.9 mGycm Automated exposure control for dose reduction was used. CONTRAST: Performed with IV Contrast, patient injected with 100 mL of Isovue 300. Multiple axial sections were obtained from the diaphragm to the floor the pelvis with intravenous con trast. Lung bases are clear. There is no pleural effusion. Heart size is normal. There are clips from gastric bariatric surgery. Spleen is intact. There is no pancreatic mass. Liver shows no focal defect. There is no adrenal mass. Kidneys show satisfactory contrast opacification. There is no hydronephrosi s. There is 2 mm low-density calculus upper pole left kidney. Ureters are not dilated. Delayed images show normal renal excretion. Ladder distends smoothly. There is no inguinal hernia. There is no free fluid in the pelvis. There is no evidence of a pelvic mass. There is apparent hysterectomy. There is no mesenteric edema. There is no ascites or free air. Appendix is posterior and appears norm al. Appendix is large and measures 7.5 mm but no inflammation. There is no evidence of a bowel obstruction. There are spondylotic changes in the lumbar spine with n arrowing at L4-5 L5-S1 discs. There is no compression fracture. The bony pelvis is intact. IMPRESSION: No acute abnormality of the abdomen and pelvis. No adverse change compared to old exam.
--- NOTE | 2019-07-10 00:28 | ED ---
Abdominal Pain HPI - General Chief Complaint: Abdominal Pain Stated Complaint: Back Pain Time Seen by Provider: 07/09/19 21:45 Source: patient Limitations: no limitations - History of Present Illness Initial Comments: 39-year-old female patient presents to the emergency department today for evaluation of lower abdominal pain and back pain. Patient states she was recently discharged after 2 days stay in the hospital for failed outpatient treatment diverticulitis. Patient states she has been taking her Cipro and Flagyl however this evening started to have increasing pain to her lower abdomen and left low back. She denies any radiation of the pain down her legs. Denies saddle anesthesia or loss of bowel or bladder control. Denies any numbness or tingling to the lower extremities. Patient states that she has been having several episodes of diarrhea daily however this is not unusual for her. She denies any fever or chills. Denies any nausea or vomiting. States she does have home pain medication but is unable take this because it gives her insomnia. She denies any hematuria, dysuria, urinary frequency, urinary urgency. Denies any abnormal vaginal bleeding or discharge. Patient denies any recent rash, shortness breath, chest pain, numbness, tingling, dizziness, weakness, headache, visual changes, or any other complaints. - Related Data Home Medications Medication Instructions Recorded Confirmed Medroxyprogesterone Acetate 150 mg IM Q90D 02/25/19 07/07/19 [Depo-Provera] sitaGLIPtin [Januvia] 50 mg PO HS 02/25/19 07/07/19 Sertraline [Zoloft] 150 mg PO HS 06/28/19 07/07/19 HYDROcodone/APAP 7.5-325MG [[place] 2 tab PO Q6HR PRN 07/03/19 07/07/19 7.5-325] clonazePAM [KlonoPIN] 0.5 mg PO HS 07/03/19 07/07/19 Previous Rx's Medication Instructions Recorded Ciprofloxacin HCl [Cipro] 500 mg PO Q12HR #20 tablet 06/26/19 Ondansetron Odt [Zofran ODT] 4 mg PO Q8HR PRN #10 tab 06/26/19 metroNIDAZOLE [Flagyl] 500 mg PO TID #30 tab 06/26/19 diphenhydrAMINE [Benadryl] 50 mg PO QID PRN cap 06/30/19 Dicyclomine [Bentyl] 10 mg PO TID #30 capsule 07/07/19 Cyclobenzaprine [Flexeril] 10 mg PO TID #15 tab 07/10/19 Allergies Allergy/AdvReac Type Severity Reaction Status Date / Time amoxicillin AdvReac flu like Verified 07/09/19 21:43 symptoms codeine AdvReac Nausea Verified 07/09/19 21:43 latex AdvReac pain and Verified 07/09/19 21:43 itching metformin AdvReac DIARRHEA Verified 07/09/19 21:43 AND FLU LIKE SYMPTOMS Penicillins AdvReac flu like Verified 07/09/19 21:43 symptoms Sulfa (Sulfonamide AdvReac flu like Verified 07/09/19 21:43 Antibiotics) symptoms Review of Systems ROS Statement: Those systems with pertinent positive or pertinent negative responses have been documented in the HPI. ROS Other: All systems not noted in ROS Statement are negative. Past Medical History Past Medical History: Diabetes Mellitus, Hyperlipidemia, Liver Disease Additional Past Medical History / Comment(s): Fatty liver,hx difficulty swallowing,. Left face numbness 01/16/16, red raised rash on arms and legs-went to ER, kidney stones, lower back pain(bulging L4-L5), recent admission for diverticulitis History of Any Multi-Drug Resistant Organisms: None Reported Past Surgical History: Bariatric Surgery, Section, Cholecystectomy, Hysterectomy, Tonsillectomy, Uterine Ablation Additional Past Surgical History / Comment(s): exploratory lower abdominal laparoscopy.10-11-15 lap brenda en y,. pain procedures, EGD, cholecystectomy 02/28/19 Past Anesthesia/Blood Transfusion Reactions: No Reported Reaction Additional Past Anesthesia/Blood Transfusion Reaction / Comment(s): claustrophobia Past Psychological History: Depression Smoking Status: Never smoker Past Alcohol Use History: None Reported Past Drug Use History: None Reported - Past Family History Mother Family Medical History: Congestive Heart Failure (CHF), Fibromyalgia Additional Family Medical History / Comment(s): at 43 from heart failure General Exam Limitations: no limitations General appearance: alert, in no apparent distress, other (This is a well- developed, well-nourished adult female patient in no acute distress. Vital signs upon presentation are temperature 98.6F, pulse 100, respirations 22, blood pressure 123/76, pulse ox 99% on room air.) Eye exam: Present: normal appearance, PERRL, EOMI. Absent: scleral icterus, conjunctival injection, periorbital swelling ENT exam: Present: normal exam, normal oropharynx, mucous membranes moist Respiratory exam: Present: normal lung sounds bilaterally. Absent: respiratory distress, wheezes, rales, rhonchi, stridor Cardiovascular Exam: Present: regular rate, normal rhythm, normal heart sounds. Absent: systolic murmur, diastolic murmur, rubs, gallop, clicks GI/Abdominal exam: Present: soft, tenderness (Suprapubic and left lower quadrant tenderness), normal bowel sounds. Absent: distended, guarding, rebound, rigid Back exam: Present: normal inspection, paraspinal tenderness (Left lower lumbar) Neurological exam: Present: alert, oriented X3, CN II-XII intact Psychiatric exam: Present: normal affect, normal mood Skin exam: Present: warm, dry, intact, normal color. Absent: rash Course Vital Signs 07/09/19 21:41 Temperature 98.6 F Pulse Rate 100 Respiratory 22 Rate Blood Pressure 123/76 O2 Sat by Pulse 99 Oximetry Medical Decision Making - Medical Decision Making 39-year-old female patient presents to the emergency department today for evaluation of increasing lower abdominal pain and low back pain. Physical examination reveals some suprapubic and left lower quadrant tenderness. There is also left lower back tenderness. Labs reviewed and are unremarkable. White blood cell count is normal at 7. Urine does not show signs of infection. Patient was recently diagnosed with diverticulitis and is taking Cipro and Flagyl. Did perform repeat computed tomography scan to rule out abscess formation, CT was negative. She is afebrile normal vital signs. She is given pain medicine here in the emergency department. She does report improvement of symptoms. She'll be discharged home to follow-up with her primary care physician for recheck in 1-2 days. Return parameters discussed in detail. She verbalizes understanding and agrees with this plan. - Lab Data Result diagrams: 07/09/19 22:01 07/09/19 22:01 Lab Results 07/09/19 07/09/19 07/09/19 Range/Units 21:59 22:01 22:01 WBC 7.0 (3.8-10.6) k/uL RBC 4.48 (3.80-5.40) m/uL Hgb 12.9 (11.4-16.0) gm/dL Hct 39.7 (34.0-46.0) % MCV 88.5 (80.0-100.0) fL MCH 28.7 (25.0-35.0) pg MCHC 32.4 (31.0-37.0) g/dL RDW 14.5 (11.5-15.5) % Plt Count 285 (150-450) k/uL Neutrophils % 70 % Lymphocytes % 22 % Monocytes % 4 % Eosinophils % 1 % Basophils % 1 % Neutrophils # 4.9 (1.3-7.7) k/uL Lymphocytes # 1.5 (1.0-4.8) k/uL Monocytes # 0.3 (0-1.0) k/uL Eosinophils # 0.1 (0-0.7) k/uL Basophils # 0.1 (0-0.2) k/uL Sodium 138 (137-145) mmol/L Potassium 4.5 (3.5-5.1) mmol/L Chloride 109 H (98-107) mmol/L Carbon Dioxide 15 L (22-30) mmol/L Anion Gap 14 mmol/L BUN 15 (7-17) mg/dL Creatinine 0.69 (0.52-1.04) mg/dL Est GFR (CKD-EPI)AfAm >90 (>60 ml/min/1.73 sqM) Est GFR (CKD-EPI)NonAf >90 (>60 ml/min/1.73 sqM) Glucose 89 (74-99) mg/dL Plasma Lactic Acid Ulises 1.9 (0.7-2.0) mmol/L Calcium 9.4 (8.4-10.2) mg/dL Total Bilirubin 0.6 (0.2-1.3) mg/dL AST 45 H (14-36) U/L ALT 36 H (4-34) U/L Alkaline Phosphatase 80 (38-126) U/L Total Protein 7.8 (6.3-8.2) g/dL Albumin 4.6 (3.5-5.0) g/dL Amylase 47 (30-110) U/L Lipase 211 (23-300) U/L Urine Color Urine Appearance (Clear) Urine pH (5.0-8.0) Ur Specific [place] (1.001-1.035) Urine Protein (Negative) Urine Glucose (UA) (Negative) Urine Ketones (Negative) Urine Blood (Negative) Urine Nitrite (Negative) Urine Bilirubin (Negative) Urine Urobilinogen (<2.0) mg/dL Ur Leukocyte Esterase (Negative) Urine RBC (0-5) /hpf Urine WBC (0-5) /hpf Ur Squamous Epith Cells (0-4) /hpf Urine Bacteria (None) /hpf Hyaline Casts (0-2) /lpf Urine Mucus (None) /hpf 07/09/19 Range/Units 22:01 WBC (3.8-10.6) k/uL RBC (3.80-5.40) m/uL Hgb (11.4-16.0) gm/dL Hct (34.0-46.0) % MCV (80.0-100.0) fL MCH (25.0-35.0) pg MCHC (31.0-37.0) g/dL RDW (11.5-15.5) % Plt Count (150-450) k/uL Neutrophils % % Lymphocytes % % Monocytes % % Eosinophils % % Basophils % % Neutrophils # (1.3-7.7) k/uL Lymphocytes # (1.0-4.8) k/uL Monocytes # (0-1.0) k/uL Eosinophils # (0-0.7) k/uL Basophils # (0-0.2) k/uL Sodium (137-145) mmol/L Potassium (3.5-5.1) mmol/L Chloride (98-107) mmol/L Carbon Dioxide (22-30) mmol/L Anion Gap mmol/L BUN (7-17) mg/dL Creatinine (0.52-1.04) mg/dL Est GFR (CKD-EPI)AfAm (>60 ml/min/1.73 sqM) Est GFR (CKD-EPI)NonAf (>60 ml/min/1.73 sqM) Glucose (74-99) mg/dL Plasma Lactic Acid Ulises (0.7-2.0) mmol/L Calcium (8.4-10.2) mg/dL Total Bilirubin (0.2-1.3) mg/dL AST (14-36) U/L ALT (4-34) U/L Alkaline Phosphatase (38-126) U/L Total Protein (6.3-8.2) g/dL Albumin (3.5-5.0) g/dL Amylase (30-110) U/L Lipase (23-300) U/L Urine Color Light Yellow Urine Appearance Cloudy H (Clear) Urine pH 6.0 (5.0-8.0) Ur Specific [place] 1.011 (1.001-1.035) Urine Protein Trace H (Negative) Urine Glucose (UA) Negative (Negative) Urine Ketones 1+ H (Negative) Urine Blood Small H (Negative) Urine Nitrite Negative (Negative) Urine Bilirubin Negative (Negative) Urine Urobilinogen <2.0 (<2.0) mg/dL Ur Leukocyte Esterase Negative (Negative) Urine RBC 2 (0-5) /hpf Urine WBC 2 (0-5) /hpf Ur Squamous Epith Cells 28 H (0-4) /hpf Urine Bacteria Occasional H (None) /hpf Hyaline Casts 10 H (0-2) /lpf Urine Mucus Few H (None) /hpf - Radiology Data Radiology results: report reviewed, image reviewed CT abdomen and pelvis is obtained. Report is reviewed in its entirety. Impression by Dr. Garcia shows no acute abnormality of the abdomen and pelvis. No adverse change compared to old exam. Disposition Clinical Impression: Acute low back pain, Abdominal pain Disposition: HOME SELF-CARE Condition: Good Instructions (If sedation given, give patient instructions): Acute Low Back Elizabeth n (ED), Abdominal Pain (ED) Additional Instructions: Continue all medications as prescribed. Follow up through primary care physician for recheck in 1-2 days. Return to the emergency department immediately for any new, worsening, or concerning symptoms. Prescriptions: Cyclobenzaprine [Flexeril] 10 mg PO TID #15 tab Is patient prescribed a controlled substance at d/c from ED?: No Referrals: Aurelio Miller Jr, [Primary Care Provider] - 1-2 days Time of Disposition: 00:28
[2019-07-10] MEDS ORDERED: CYCLOBENZAPRINE 10MG STARTER 3 TAB BTL PO STA (00:34)
[2019-07-10] MEDS ORDERED: HYDROmorphone 1 MG/ML 1 ML SYRINGE IVP STA (00:35)
[2019-07-10 01:03] VITALS: BP 127/80; PULSE 81; RESP 18
== END 2019-07-10 01:03 | disposition home or self-care (01) ==
LOC: EC 21:38
DX: M54.5 Low back pain (principal); R10.30 Lower abdominal pain, unspecified; K57.92 Diverticulitis of intestine, part unspecified, without perforation or abscess without bleeding; R19.7 Diarrhea, unspecified; E11.9 Type 2 diabetes mellitus without complications; F32.9 Major depressive disorder, single episode, unspecified; Z88.0 Allergy status to penicillin; Z88.2 Allergy status to sulfonamides; Z88.5 Allergy status to narcotic agent; Z88.8 Allergy status to other drugs, medicaments and biological substances; Z91.040 Latex allergy status; Z79.3 Long term (current) use of hormonal contraceptives; Z79.84 Long term (current) use of oral hypoglycemic drugs; Z79.899 Other long term (current) drug therapy; Z90.49 Acquired absence of other specified parts of digestive tract; Z98.84 Bariatric surgery status
CPT/HCPCS: 99284; 96374; 96375; 96376; 96361; 36415; 80053; 82150; 83605; 83690; 85025; 81001; 87040; 74177; J2405; J1170 ×2; Q9967

== ENCOUNTER 2019-07-15 00:19 | Observation (INO) | payer OTHER ==
[2019-07-15] MEDS ORDERED: SODIUM CHLORIDE 0.9% 1,000 ML IV STA (00:39)
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
[2019-07-15 02:07] LABS: Amphetamine Screen,Urine Not Detected (NotDetected); Barbiturate Screen,Urine Not Detected (NotDetected); Benzodiazepines Screen,Urine Not Detected (NotDetected); Cocaine Screen,Urine Not Detected (NotDetected); Methadone Screen, Urine Not Detected (NotDetected); Opiate Screen,Urine Detected (NotDetected); Oxycodone Screen, Urine Detected (NotDetected); Phencyclidine Screen,Urine Not Detected (NotDetected); Tricyclic Antidepressant,Urine Not Detected (NotDetected); Urn Cannabinoid Scrn Not Detected (NotDetected)
[2019-07-15 02:21] LABS: Basophils # (A) 0.1 k/uL (0-0.2); Basophils % (A) 1 %; Eosinophils # (A) 0.1 k/uL (0-0.7); Eosinophils % (A) 1 %; HCT 42.5 % (34.0-46.0); HGB 13.2 gm/dL (11.4-16.0); Hypochromasia Slight; Lymphocytes # (A) 2.5 k/uL (1.0-4.8); Lymphocytes % (A) 31 %; MCH 27.8 pg (25.0-35.0); MCHC 31.2 g/dL (31.0-37.0); MCV 89.3 fL (80.0-100.0); Mean Platelet Volume 7.6; Monocytes # (A) 0.5 k/uL (0-1.0); Monocytes % (A) 6 %; Neutrophils # (A) 4.7 k/uL (1.3-7.7); Neutrophils % (A) 58 %; Platelet Count 351 k/uL (150-450); RBC 4.76 m/uL (3.80-5.40); RDW 14.3 % (11.5-15.5); WBC 8.1 k/uL (3.8-10.6)
[2019-07-15 02:30] LABS: INR 0.9 (<1.2); Partial Thromboplastin Time 26.4 sec (22.0-30.0); Prothrombin Time 9.8 sec (9.0-12.0)
[2019-07-15 02:32] LABS: ALT 200 U/L (4-34); AST 482 U/L (14-36); African American GFR (CKD) >90 (>60 ml/min/1.73 sqM); Albumin 4.7 g/dL (3.5-5.0); Alkaline Phosphatase 160 U/L (38-126); Anion Gap 18 mmol/L; Blood Urea Nitrogen 15 mg/dL (7-17); Calcium 9.1 mg/dL (8.4-10.2); Carbon Dioxide 17 mmol/L (22-30); Chloride 105 mmol/L (98-107); Creatine Kinase 45 U/L (30-135); Glucose 143 mg/dL (74-99); Magnesium 1.8 mg/dL (1.6-2.3); Non-African American GFR(CKD) >90 (>60 ml/min/1.73 sqM); Phosphorus 4.9 mg/dL (2.5-4.5); Salicylate 1.3 mg/dL; Sodium 140 mmol/L (137-145); Total Bilirubin 0.3 mg/dL (0.2-1.3); Total Protein 7.8 g/dL (6.3-8.2)
[2019-07-15 02:42] LABS: Acetaminophen 147.9 ug/mL
[2019-07-15 02:48] LABS: Alcohol 124 mg/dL
[2019-07-15] MEDS ORDERED: ONDANSETRON 4 MG/2 ML VIAL IVP STA (03:01)
[2019-07-15] MEDS ORDERED: NALOXONE 0.4 MG/ML 1 ML VIAL IV PRN (03:02)
[2019-07-15] MEDS ORDERED: ONDANSETRON 4 MG/2 ML VIAL IVP PRN (03:02)
[2019-07-15] MEDS ORDERED: SODIUM CHLORIDE 0.9% 1,000 ML IV ONE (03:04)
[2019-07-15] MEDS ORDERED: THIAMINE 100 MG/ML 2 ML VIAL IM STA (03:04)
[2019-07-15] MEDS ORDERED: LORazepam 2 MG/ML INJ IV PRN ×2 (03:04)
[2019-07-15] MEDS ORDERED: WATER IV ONE ×4 (03:30→08:30)
[2019-07-15] MEDS ORDERED: ACETYLCYSTEINE IV ONE ×4 (03:30→08:30)
[2019-07-15] MEDS ORDERED: ACETYLCYSTEINE IV 15,000 MG in DEXTROSE 5% IN WATER 200 ML IV ONE ×2 (03:30)
[2019-07-15] MEDS ORDERED: DEXTROSE 5% IV ONE ×4 (03:30→08:30)
[2019-07-15 04:23] LABS: Glucose,Whole Blood 155 mg/dL (75-99)
[2019-07-15] MEDS: SODIUM CHLORIDE 0.9% 1,000 ML IV SCH (05:24)
[2019-07-15] MEDS: DICYCLOMINE 10 MG CAP PO SCH ×3 (08:18→21:23)
[2019-07-15] MEDS ORDERED: diphenhydrAMINE 25 MG CAP PO PRN (09:26)
[2019-07-15] MEDS ORDERED: CHOLESTYRAMINE (WITH SUGAR) 4 GM PACKET PO PRN (09:29)
[2019-07-15] MEDS: diphenhydrAMINE 25 MG CAP PO PRN ×2 (09:39→15:54)
[2019-07-15 12:00] LABS: Glucose,Whole Blood 117 mg/dL (75-99)
--- NOTE | 2019-07-15 14:29 | P.CN ---
Psychiatric Consult - . Consult date: 07/15/19 Consult:: 07/15/19 14:18 IDENTIFYING DATA: This patient is a 39-year-old female with 4 kids and is a [id number] mom and is supported by her . HISTORY OF PRESENT ILLNESS: The patient presented to the hospital early this morning after a overdose of her medications. Patient had an elevated AST/ALT level, acetaminophen level was 147.9. BAL was 124 and UDS was positive for opiates. Patient was admitted to the ICU for medical care and poison control was contacted for recommendations and to follow patient's acetaminophen level for toxicity. Patient was seen by psychiatrist today for overdose and depression. Nurse taking care of patient claims that patient is denying suicidal intent. Patient has a one-to-one sitter at the bedside for safety and was agreeable to speak to commercial real estate underwriter. She states that she has never spoken to a psychiatrist in the past. Patient was guarded/evasive about the events that occurred prior to coming to the hospital. She states that she only remembers being in the bathtub drinking wine and denies having any fight with her at home. She states that she does not know how much wine she was drinking or how much pills she overdosed on. She spoke about the significant stressors in her life feeling "overwhelmed with life" and spoke about being the only one that cares for her kids as her is working 3 jobs and often late into the night. She states that they're also having financial/money problems at home. She states that she did not have any intent to kill herself and claims that she "blacked out". Patient states that she does have significant anxiety especially at nighttime and has decreased sleep and states that she was self managing her Zoloft and other medications at home. She states that her mood is "on edge and depressed". She claims a fair appetite and fair energy and significant guilt. At this time patient denies any suicidal or homical ideations, intent or plan. Patient denies any auditory, visual hallucinations and denies any paranoia or delusions. Patient admits to drinking alcohol approximately 2 glasses of wine per day, she states that she takes opiates which are prescribed by her PCP for pain. She denies any cigarette use. PAST PSYCHIATRIC HISTORY: Patient claims that she has never had outpatient psychiatric follow-up denies any inpatient admissions and denies any suicide attempts in the past. She did state that she has been going to a therapist at [facility] but has not been in one month. Patient has been on Zoloft and is currently at 150 mg and also Ativan for anxiety. PAST MEDICAL HISTORY: Diabetes mellitus, obesity, HOP, liver disease, diverticulitis. ALLERGIES: as per EMR. CHEMICAL DEPENDENCY HISTORY: as per HPI. FAMILY PSYCHIATRIC/SUBSTANCE USE HISTORY: States that her mother and grandmother overdosed and her and also states that her uncle committed suicide. SOCIAL HISTORY: She states that she was born and raised in [place] and states that she finished high school and is currently a [id number]-eu-divz mom and is supported by her . She has 4 kids. MENTAL STATUS EXAM: General Appearance: Patient appears to be stated age is overweight, alert, guarded/evasive. Fair eye contact, poor hygiene and grooming. Behavior: Patient is calmly lying in bed without any agitated behavior. Guarded/evasive. Speech: Patient's speech is fluent and nonpressured. Mood/Affect: Patient reports their mood is "overwhelmed and depressed", affect is congruent appears anxious. Suicidality/Homicidality: Patient denies having any suicidal or homicidal ideation intent or plan. Perceptions: Patient denies any visual hallucinations and denies any auditory hallucinations Though content/process: Focused on discharge, denying suicide attempt and minimizing her symptoms. Goal oriented/linear. Memory and concentration: AOX3, grossly intact for the purposes of this session. Can spell "WORLD" backwards Judgment and insight: poor/impulsive IMPRESSIONS: Major depressive disorder, moderate-severe, without psychotic features Anxiety disorder unspecified Alcohol abuse PLAN: -At this time patient does meet criteria for inpatient psychiatric admission. -Would recommend the following medication changes/additions: Decrease patient's Zoloft to 50 mg daily at bedtime for depression/anxiety as patient's liver enzymes are elevated at this time. Melatonin 5 mg daily at bedtime for sleep. Can continue other medications as prescribed. -Continue 1:1 sitter for safety -Continue with CIWA with when necessary Ativan for alcohol withdrawal. -Cannot leave AMA at this time. Patient will need a petition and certification if attempting to leave AMA. -When medically stable/cleared by toxicology and repeat LFTs and acetaminophen level have normalized, patient is eligible for transfer to a psych bed when available. -Psychiatry will sign off at this point
[2019-07-15] MEDS ORDERED: metroNIDAZOLE 500 MG TAB PO STA (14:30)
[2019-07-15] MEDS ORDERED: LEVOFLOXACIN 500 MG TAB PO STA (14:30)
--- NOTE | 2019-07-15 14:33 | P.HPIM ---
History of Present Illness H&P Date: 07/15/19 This is a 39-year-old female recently admitted for diverticulitis, failed outpatient treatment, completed antibiotic therapy, brought into the ER with [place] overdose by EMS. Patient reports she felt like she was having another flareup of her diverticulitis, feeling very frustrated ,only remembers taking two Norcos, along with consuming alcohol-serum alcohol level 124. Acetaminophen level 147.9. Toxicology screen also reported opiates and oxycodone .Reports she doesn't really remember taking more. She had been arguing with her . Reports she is a nkxv-yo-qbur mom, 4 children 14 years, doesn't get out of the house much, has been attempting to obtain a job for the last few weeks unsu ccessfully. Her works 3 jobs. Reports financial strain from the holidays in addition to the children's birthdays fall between April and May. Denies that she was not suicidal at the time. Denies being suicidal currently, feels depressed, overwhelmed. Also reports she has been unable to sleep, taking clonazepam with no results, added Benadryl and melatonin-still was unable to sleep. Patient also on Zoloft. Reports she does see a counselor. Reports she has never done this previously. Treated with Acetylcysteine, currently receiving third dose. On admission patient was tachycardic, systolic blood pressure in the low 100s, maintaining O2 sats in the high 90s on room air. Afebrile. T bili 0.3, AST 482, ALT 200, alk phos 160. Repeat CMP pending. Troponin, EKG pending. Review of Systems ROS Other: All systems not noted in ROS Statement are negative. ROS Statement: Those systems with pertinent positive or pertinent negative responses have been documented in the HPI. Past Medical History Past Medical History: Diabetes Mellitus, Hyperlipidemia, Liver Disease Additional Past Medical History / Comment(s): Fatty liver,hx difficulty swallowing,. Left face numbness 01/16/16, red raised rash on arms and legs-went to ER, kidney stones, lower back pain(bulging L4-L5), recent admission for diverticulitis History of Any Multi-Drug Resistant Organisms: None Reported Past Surgical History: Bariatric Surgery, Section, Cholecystectomy, Hysterectomy, Tonsillectomy, Uterine Ablation Additional Past Surgical History / Comment(s): exploratory lower abdominal laparoscopy.5-2-16 lap brenda en y,. pain procedures, EGD, cholecystectomy 02/28/19 esopagus stretching with mcfarlan a week ago. Past Anesthesia/Blood Transfusion Reactions: No Reported Reaction Additional Past Anesthesia/Blood Transfusion Reaction / Comment(s): claustrophobia Past Psychological History: Depression Smoking Status: Never smoker Past Alcohol Use History: Occasional Additional Past Alcohol Use History / Comment(s): She states she is a nonsmoker. She denies any medical marijuana, marijuana, street drug or alcohol use. She lives at home with her and children. 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 There are 2 cats in the home. Past Drug Use History: Prescription Drug Abuse - Past Family History Mother Family Medical History: Congestive Heart Failure (CHF), Fibromyalgia Additional Family Medical History / Comment(s): at 43 from heart failure Medications and Allergies Home Medications Medication Instructions Recorded Confirmed Type Medroxyprogesterone Acetate 150 mg IM Q90D 02/25/19 07/15/19 History [Depo-Provera] sitaGLIPtin [Januvia] 50 mg PO HS 02/25/19 07/15/19 History Sertraline [Zoloft] 100 mg PO HS 06/28/19 07/15/19 History diphenhydrAMINE [Benadryl] 50 mg PO QID PRN cap 06/30/19 07/15/19 Rx HYDROcodone/APAP 7.5-325MG [Coloma 1 tab PO Q6HR PRN 07/03/19 07/15/19 History 7.5-325] clonazePAM [KlonoPIN] 0.5 mg PO HS 07/03/19 07/15/19 History Dicyclomine [Bentyl] 10 mg PO TID #30 capsule 07/07/19 07/15/19 Rx Cyclobenzaprine [Flexeril] 10 mg PO TID #15 tab 07/10/19 07/15/19 Rx Cholestyramine/Aspartame 4 gm PO 5XD PRN 07/15/19 07/15/19 History [Cholestyramine Light Packet] Ciprofloxacin HCl [Cipro] 250 mg PO Q8H 07/15/19 07/15/19 History Ergocalciferol [Vitamin D2] 50,000 unit PO Q7D 07/15/19 07/15/19 History Ketoconazole 2% Cream [Nizoral 2%] 1 applic TOPICAL BID 07/15/19 07/15/19 History Psyllium Husk (with Sugar) 6 gm PO HS 07/15/19 07/15/19 History [Metamucil Powder] Sertraline [Zoloft] 50 mg PO HS 07/15/19 07/15/19 History Allergies Allergy/AdvReac Type Severity Reaction Status Date / Time amoxicillin AdvReac flu like Verified 07/15/19 07:25 symptoms codeine AdvReac Nausea Verified 07/15/19 07:25 latex AdvReac pain and Verified 07/15/19 07:25 itching metformin AdvReac DIARRHEA Verified 07/15/19 07:25 AND FLU LIKE SYMPTOMS Penicillins AdvReac flu like Verified 07/15/19 07:25 symptoms Sulfa (Sulfonamide AdvReac flu like Verified 07/15/19 07:25 Antibiotics) symptoms Physical Exam Vitals: Vital Signs Temp Pulse Pulse Resp BP Pulse Ox 07/15/19 12:00 98.4 F 92 20 126/94 95 07/15/19 08:00 97.8 F 112 H 20 114/76 97 07/15/19 07:00 98 11 L 104/64 96 07/15/19 06:00 92 11 L 125/81 94 L 07/15/19 05:00 97 9 L 127/79 93 L 07/15/19 04:29 98 F 99 19 116/68 98 07/15/19 04:20 98.2 F 96 12 127/79 93 L 07/15/19 04:18 110 H 26 H 07/15/19 03:17 99 07/15/19 02:53 104 H 19 118/67 98 07/15/19 00:53 102 H 07/15/19 00:44 137 H 19 111/71 99 Intake and Output 07/14/19 07/15/19 07/15/19 22:59 06:59 14:59 Intake Total 337.5 1167.7 Output Total 0 750 Balance 337.5 417.7 Intake: IV 337.5 687.7 Acetylcysteine IV 15,000 200 mg In Dextrose 5% in Water 200 ml @ 200 mls/hr IV ONCE ONE Rx#: [id number] Dextrose 5% in Water 1, 275.2 000 ml @ 62.5 mls/hr IV . [id number] ONE with Acetylcysteine IV 10,000 mg Rx#:[id number] Dextrose 5% in Water 500 137.5 412.5 ml @ 125 mls/hr IV . Q4H12M ONE with Acetylcysteine IV 5,000 mg Rx#:[id number] Oral 480 Output: Urine 0 750 Other: Weight 110.2 kg PHYSICAL EXAM: VITAL SIGNS: As above GENERAL: Sitting up in bed, no acute distress HEENT: Conjunctivae normal. eyes normal. NECK: No JVD. No thyroid enlargement. No LNs CARDIOVASCULAR: S1, S2 regular.. No murmur RESPIRATION: Breath sounds diminished in the bases. No rhonchi or crackles. No bronchial breathing. ABDOMEN: Soft, nontender . No guarding. no masses palpable. No ascites, No hepatosplenomegaly.Bowel sounds heard. LEGS: No edema. no swelling PSYCHIATRY: Alert and oriented X3, apologetic. NERVOUS SYSTEM: Cranial N 2-12 grossly normal. Moves all 4 limbs. Diffuse weakness No focal deficits. Strength and sensation grossly intact.. Skin: no rash Joints: No active swelling. No inflammation. Lymphatic system. No LN neck axilla. Results CBC & Chem 7: 07/15/19 01:56 07/15/19 01:56 Labs: Abnormal Lab Results - Last 24 Hours (Table) 07/15/19 07/15/19 07/15/19 Range/Units 01:14 01:56 04:20 Carbon Dioxide 17 L (22-30) mmol/L Glucose 143 H (74-99) mg/dL POC Glucose (mg/dL) 155 H (75-99) mg/dL Phosphorus 4.9 H (2.5-4.5) mg/dL AST 482 H (14-36) U/L ALT 200 H (4-34) U/L Alkaline Phosphatase 160 H (38-126) U/L Urine Opiates Screen Detected H (NotDetected) Ur Oxycodone Screen Detected H (NotDetected) Acetaminophen 147.9 H* ug/mL 07/15/19 Range/Units 11:58 Carbon Dioxide (22-30) mmol/L Glucose (74-99) mg/dL POC Glucose (mg/dL) 117 H (75-99) mg/dL Phosphorus (2.5-4.5) mg/dL AST (14-36) U/L ALT (4-34) U/L Alkaline Phosphatase (38-126) U/L Urine Opiates Screen (NotDetected) Ur Oxycodone Screen (NotDetected) Acetaminophen ug/mL Thrombosis Risk Factor Assmnt - Choose All That Apply Any of the Below Risk Factors Present?: No Other Risk Factors: No Other congenital or acquired thrombophilia - If yes, enter type in comment: No Thrombosis Risk Factor Assessment Level: Very Low Risk Assessment and Plan Assessment: Acetaminophen overdose, reports taking Coloma's Elevated LFTs secondary to the above Alcohol intoxication secondary to alcohol abuse Depression Sleep deprivation Anxiety Recently treated for diverticulitis in a patient with history of diverticulosis History of gastric bypass Obesity, morbid, BMI 44.4 Plan: Continue on current medication regime ,monitoring and symptomatic treatment. PPI ordered. EKG, troponin pending. Maintain corporate safety director, suicide precautions. Psychiatry consult in place with recommendations pending. Discussed with patient, inpatient psychiatry. She is currently asking for suicide precautions to be lifted, requesting to go home. Continue on IV Acetylcysteine as per poison control recommendations. Close monitoring of LFTs. Patient also requesting additional antibiotics, concerned over potential acute flareup, one dose of Levaquin and Flagyl will be ordered as per PCPs recommendations. Prognosis guarded given multiple complex medical issues. The impression and plan of care has been dictated as directed. : I performed a history and examination of this patient, discussed the same with the dictator. I agree with the dictator's note ,documented as a scribe. Any additional findings or plans will be noted.
[2019-07-15] MEDS: PANTOPRAZOLE 40 MG/10 ML VIAL IVP SCH (15:52)
[2019-07-15 17:13] LABS: Glucose,Whole Blood 92 mg/dL (75-99)
[2019-07-15 17:51] LABS: ALT 147 U/L (4-34); AST 121 U/L (14-36); Acetaminophen <10.0 ug/mL; African American GFR (CKD) >90 (>60 ml/min/1.73 sqM); Albumin 4.2 g/dL (3.5-5.0); Alkaline Phosphatase 109 U/L (38-126); Anion Gap 11 mmol/L; Blood Urea Nitrogen 11 mg/dL (7-17); Calcium 8.4 mg/dL (8.4-10.2); Carbon Dioxide 20 mmol/L (22-30); Chloride 106 mmol/L (98-107); Glucose 87 mg/dL (74-99); Non-African American GFR(CKD) >90 (>60 ml/min/1.73 sqM); Potassium 3.9 mmol/L (3.5-5.1); Sodium 137 mmol/L (137-145); Total Bilirubin 0.4 mg/dL (0.2-1.3); Total Protein 7.1 g/dL (6.3-8.2)
[2019-07-15 18:18] LABS: Glucose,Whole Blood 104 mg/dL (75-99)
[2019-07-15] MEDS: THIAMINE 100 MG TAB PO SCH (18:38)
[2019-07-15] MEDS: LORazepam 2 MG/ML INJ IV PRN ×2 (19:56→23:40)
[2019-07-15] MEDS ORDERED: hydrOXYzine PAMOATE 25 MG CAP PO STA (20:31)
[2019-07-15 20:39] LABS: Glucose,Whole Blood 109 mg/dL (75-99)
[2019-07-15] MEDS ORDERED: clonazePAM 0.5 MG TAB PO SCH (21:00)
[2019-07-15] MEDS ORDERED: LINAGLIPTIN 5 MG TABLET PO SCH (21:00)
[2019-07-15] MEDS ORDERED: MELATONIN 3 MG TABLET PO SCH (21:00)
[2019-07-15] MEDS ORDERED: SERTRALINE 50 MG TAB PO SCH ×2 (21:00)
[2019-07-15] MEDS: KETOCONAZOLE 2% TOPICAL SCH (21:25)
[2019-07-16] MEDS: SODIUM CHLORIDE 0.9% 1,000 ML IV SCH (01:56)
[2019-07-16 04:45] LABS: Basophils # (A) 0.1 k/uL (0-0.2); Basophils % (A) 2 %; Eosinophils # (A) 0.1 k/uL (0-0.7); Eosinophils % (A) 3 %; Lymphocytes # (A) 1.1 k/uL (1.0-4.8); Lymphocytes % (A) 26 %; MCH 27.9 pg (25.0-35.0); MCHC 31.6 g/dL (31.0-37.0); MCV 88.2 fL (80.0-100.0); Mean Platelet Volume 7.2; Monocytes # (A) 0.1 k/uL (0-1.0); Monocytes % (A) 3 %; Neutrophils # (A) 2.6 k/uL (1.3-7.7); Neutrophils % (A) 66 %; Platelet Count 204 k/uL (150-450); RBC 4.31 m/uL (3.80-5.40); RDW 14.1 % (11.5-15.5)
[2019-07-16 04:54] LABS: ALT 104 U/L (4-34); AST 62 U/L (14-36); Acetaminophen <10.0 ug/mL; African American GFR (CKD) >90 (>60 ml/min/1.73 sqM); Albumin 3.6 g/dL (3.5-5.0); Alkaline Phosphatase 101 U/L (38-126); Anion Gap 8 mmol/L; Blood Urea Nitrogen 9 mg/dL (7-17); Calcium 8.6 mg/dL (8.4-10.2); Carbon Dioxide 21 mmol/L (22-30); Chloride 108 mmol/L (98-107); Glucose 105 mg/dL (74-99); Non-African American GFR(CKD) >90 (>60 ml/min/1.73 sqM); Potassium 3.7 mmol/L (3.5-5.1); Sodium 137 mmol/L (137-145); Total Bilirubin 0.4 mg/dL (0.2-1.3); Total Protein 6.2 g/dL (6.3-8.2)
[2019-07-16 05:02] VITALS: RESP 15
[2019-07-16] MEDS: LORazepam 2 MG/ML INJ IV PRN ×2 (05:08→11:31)
[2019-07-16] MEDS: THIAMINE 100 MG TAB PO SCH (06:53)
[2019-07-16 07:10] LABS: Glucose,Whole Blood 123 mg/dL (75-99)
[2019-07-16] MEDS ORDERED: hydrOXYzine PAMOATE 25 MG CAP PO PRN (07:29)
[2019-07-16] MEDS: PANTOPRAZOLE 40 MG/10 ML VIAL IVP SCH (08:00)
[2019-07-16] MEDS: DICYCLOMINE 10 MG CAP PO SCH (08:00)
[2019-07-16 08:01] VITALS: BP 128/79; PULSE 97; TEMP 98.8
[2019-07-16] MEDS: KETOCONAZOLE 2% TOPICAL SCH (08:01)
--- NOTE | 2019-07-16 11:09 | P.DS ---
Providers Date of admission: 07/15/19 03:11 Expected date of discharge: 07/16/19 Attending physician: Lee Charles Consults: 07/15/19 03:03 Consult Physician Routine Consulting Provider: Dwain Jett Consult Reason/Comments: Overdose. Suicidal ideation. Do you want consulting provider notified?: Yes Primary care physician: [facility] Course: Final Diagnoses: Acetaminophen overdose, reports taking Aldrich's Elevated LFTs secondary to the above Alcohol intoxication secondary to alcohol abuse Depression Sleep deprivation Anxiety Recently treated for diverticulitis in a patient with history of diverticulosis History of gastric bypass Obesity, morbid, BMI 44.4 Hospital course:This is a 39-year-old female recently admitted for diverticulitis, failed outpatient treatment, completed antibiotic therapy, brought into the ER with Aldrich overdose by EMS. Patient reports she felt like she was having another flareup of her diverticulitis, feeling very frustrated ,only remembers taking two Norcos, along with consuming alcohol-serum alcohol level 124. Acetaminophen level 147.9. Toxicology screen also reported opiates and oxycodone .Reports she doesn't really remember taking more. She had been arguing with her . 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 Her works 3 jobs. Reports financial strain from the holidays in addition to the children's birthdays fall between April and May. Denies that she was not suicidal at the time. Denies being suicidal currently, feels depressed, overwhelmed. Also reports she has been unable to sleep, taking clonazepam with no results, added Benadryl and melatonin-still was unable to sleep. Patient also on Zoloft. Reports she does see a counselor. Reports she has never done this previously. Treated with Acetylcysteine, currently receiving third dose. On admission patient was tachycardic, systolic blood pressure in the low 100s, maintaining O2 sats in the high 90s on room air. Afebrile. T bili 0.3, AST 482, ALT 200, alk phos 160. Repeat CMP pending. Troponin, EKG pending. Evaluated by psychiatry, suicide precautions maintained. Significant clinical improvement. LFTs continue trending down ,Acetaminophen level less than 10. Vital signs stable. Patient is medically cleared for discharge to mental health unit, in a stable condition with guarded prognosis. The impression and plan of care has been dictated as directed. : I performed a history and examination of this patient, discussed the same with the dictator. I agree with the dictator's note ,documented as a scribe. Any additional findings or plans will be noted. Patient Condition at Discharge: Stable Plan - Discharge Summary Discharge Rx Participant: No New Discharge Prescriptions: New Melatonin 6 mg PO HS tablet Pantoprazole Sodium [Protonix] 40 mg PO DAILY #1 tablet. hydrOXYzine PAMOATE [Vistaril] 50 mg PO Q8HR PRN cap PRN Reason: Itching Thiamine [Vitamin B-1] 100 mg PO BID-W/MEALS tab Sertraline [Zoloft] 50 mg PO HS tab Continue sitaGLIPtin [Januvia] 50 mg PO HS Medroxyprogesterone Acetate [Depo-Provera] 150 mg IM Q90D diphenhydrAMINE [Benadryl] 50 mg PO QID PRN cap PRN Reason: Itching clonazePAM [KlonoPIN] 0.5 mg PO HS Dicyclomine [Bentyl] 10 mg PO TID #30 capsule Ketoconazole 2% Cream [Nizoral 2%] 1 applic TOPICAL BID Ergocalciferol [Vitamin D2 (DRISDOL)] 50,000 unit PO Q7D Cholestyramine/Aspartame [Cholestyramine Light Packet] 4 gm PO 5XD PRN PRN Reason: Diarrhea Discontinued Sertraline [Zoloft] 100 mg PO HS HYDROcodone/APAP 7.5-325MG [Aldrich 7.5-325] 1 tab PO Q6HR PRN PRN Reason: pain Cyclobenzaprine [Flexeril] 10 mg PO TID #15 tab Sertraline [Zoloft] 50 mg PO HS Ciprofloxacin HCl [Cipro] 250 mg PO Q8H Psyllium Husk (with Sugar) [Metamucil Powder] 6 gm PO HS Discharge Medication List Medroxyprogesterone Acetate [Depo-Provera] 150 mg IM Q90D 02/25/19 [History] sitaGLIPtin [Januvia] 50 mg PO HS 02/25/19 [History] diphenhydrAMINE [Benadryl] 50 mg PO QID PRN cap 06/30/19 [Rx] clonazePAM [KlonoPIN] 0.5 mg PO HS 07/03/19 [History] Dicyclomine [Bentyl] 10 mg PO TID #30 capsule 07/07/19 [Rx] Cholestyramine/Aspartame [Cholestyramine Light Packet] 4 gm PO 5XD PRN 07/15/19 [History] Ergocalciferol [Vitamin D2 (DRISDOL)] 50,000 unit PO Q7D 07/15/19 [History] Ketoconazole 2% Cream [Nizoral 2%] 1 applic TOPICAL BID 07/15/19 [History] Melatonin 6 mg PO HS tablet 07/16/19 [Rx] Pantoprazole Sodium [Protonix] 40 mg PO DAILY #1 tablet.dr 07/16/19 [Rx] Sertraline [Zoloft] 50 mg PO HS tab 07/16/19 [Rx] Thiamine [Vitamin B-1] 100 mg PO BID-W/MEALS tab 07/16/19 [Rx] hydrOXYzine PAMOATE [Vistaril] 50 mg PO Q8HR PRN cap 07/16/19 [Rx] Follow up Appointment(s)/Referral(s): wDain Jett MD [Medical Doctor] - 1-2 Days Aurelio Miller Jr, DO [Primary Care Provider] - 3 Days (After discharge from mental health unit) Patient Instructions/Handouts: Adult Overdose (ED) Activity/Diet/Wound Care/Special Instructions: CBC,CMP tomorrow [facility] Discharge Disposition: TRANSFER TO PSYCH HOSP/UNIT
[2019-07-16] MEDS ORDERED: Potassium Replacement Protocol 1 EACH MISC MISCELLANE PRN (11:12)
[2019-07-16 12:18] LABS: Glucose,Whole Blood 127 mg/dL (75-99)
[2019-07-17] MEDS ORDERED: PANTOPRAZOLE 40 MG TABLET PO SCH (09:00)
== END 2019-07-16 14:47 ==
LOC: EC 00:19 → 2SICU 03:11 → INTOOBSV 03:11 → UNDODISIN 07-16 14:47
PROVIDERS: ADMIT Family Medicine; ATTEND Family Medicine
DX: T39.1X2A Poisoning by 4-Aminophenol derivatives, intentional self-harm, initial encounter (principal); Z68.41 Body mass index [BMI] 40.0-44.9, adult; E66.01 Morbid (severe) obesity due to excess calories; E78.5 Hyperlipidemia, unspecified; E11.9 Type 2 diabetes mellitus without complications; F10.129 Alcohol abuse with intoxication, unspecified; F32.9 Major depressive disorder, single episode, unspecified; F40.240 Claustrophobia; K76.0 Fatty (change of) liver, not elsewhere classified; Z72.820 Sleep deprivation; Z79.84 Long term (current) use of oral hypoglycemic drugs; Z79.899 Other long term (current) drug therapy; Z79.891 Long term (current) use of opiate analgesic; Z82.49 Family history of ischemic heart disease and other diseases of the circulatory system; Z87.442 Personal history of urinary calculi; Z90.49 Acquired absence of other specified parts of digestive tract; Z90.710 Acquired absence of both cervix and uterus; Z98.84 Bariatric surgery status; Z88.5 Allergy status to narcotic agent; Z88.2 Allergy status to sulfonamides; Z88.8 Allergy status to other drugs, medicaments and biological substances; Z88.1 Allergy status to other antibiotic agents; Z91.040 Latex allergy status; K57.90 Diverticulosis of intestine, part unspecified, without perforation or abscess without bleeding; R79.89 Other specified abnormal findings of blood chemistry
CPT/HCPCS: 96376 ×2; 96361 ×3; 96365 ×2; 96366; 96375 ×2; 82075; 99285; 36415; 93005; 80053 ×2; 82550; 83690; 83735; 84100; 84484; 85025 ×2; 85610; 85730; 81025; 80306; 83520; G0378 ×2; G0480 ×3; J2060 ×2; J2405; J0132; C9113 ×2; 80320; 80329

== ENCOUNTER → 2019-10-22 | Outpatient (CLI) | payer OTHER ==
--- NOTE | 2019-10-24 09:00 | MM ---
Reason for exam: follow-up at short interval from prior study. Last mammogram was performed 6 months ago. History: Family history of breast cancer in maternal grandmother at age 60 and breast cancer in paternal grandmother at age 60. Taking hormonal contraceptives. Physical Findings: Nurse did not find any significant physical abnormalities on exam. MG 3D Diag Mammo W/Cad RT CC, MLO, and XCCL view(s) were taken of the right breast. Prior study comparison: April 16, 2019, right breast MG work up mamm w CAD RT. April 16, 2019, bilateral MG screening mammo w CAD. The breast tissue is heterogeneously dense. This may lower the sensitivity of mammography. Benign calcifications in the right breast. These results were verbally communicated with the patient and result sheet given to the patient on 10/22/19. ASSESSMENT: Incomplete: need additional imaging evaluation, BI-RAD 0 RECOMMENDATION: Ultrasound of the right breast.
--- NOTE | 2019-10-24 09:01 | USB ---
Reason for exam: additional evaluation requested from abnormal screening. History: Family history of breast cancer in maternal grandmother at age 60 and breast cancer in paternal grandmother at age 60. Taking hormonal contraceptives. US Breast RT Right complete breast ultrasound includes all four quadrants, the retroareolar region and axilla. Finding demonstrates no cystic or solid lesion seen. These results were verbally communicated with the patient and result sheet given to the patient on 10/22/19. ASSESSMENT: Benign, BI-RAD 2 RECOMMENDATION: Return to routine screening mammogram schedule for both breasts. Back on schedule.
== END | disposition home or self-care (01) ==
LOC: RADMAMWWP 08:51
PROVIDERS: ATTEND Family Medicine
DX: R92.8 Other abnormal and inconclusive findings on diagnostic imaging of breast (principal)
CPT/HCPCS: 77065; 76641; G0279; 77061

== ENCOUNTER 2020-02-18 19:12 | Emergency (ER) | payer OTHER ==
[2020-02-18] MEDS ORDERED: SODIUM CHLORIDE 0.9% 1,000 ML IV STA (19:36)
[2020-02-18] MEDS ORDERED: ONDANSETRON 4 MG/2 ML VIAL IVP STA (20:00)
--- NOTE | 2020-02-18 20:10 | ED ---
Abdominal Pain HPI - General Chief Complaint: Abdominal Pain Stated Complaint: Abd pain, fever, nausea Time Seen by Provider: 02/18/20 19:19 Source: patient Mode of arrival: ambulatory Limitations: no limitations - History of Present Illness Initial Comments: Patient is a 39-year-old female presenting to the emergency Department with complaints of left lower quadrant pain that has been increasing over the past 2 weeks. She states the pain is becoming more and more intense and she is now feeling very fatigued and feels like she might of had a fever at home for the past 2-3 days. She is also complaining of nausea, no vomiting. She is complaining of diarrhea along with small amount of blood in the diarrhea x 2 weeks. She admits to history of bariatric surgery with Dr. Suero, multiple C-sections, cholecystectomy, hysterectomy. She states she is getting a revision to her gastric bypass next week and Geena Ricks. Patient states she had a colonoscopy a few years ago and does have a history of diverticulitis. Patient states she did not take any Tylenol today. She denies any chest pain, shortness of breath. She has no further complaints at this time. Upon arrival to the ER, patient's vital signs are stable. - Related Data Previous Rx's Medication Instructions Recorded Azithromycin [Zithromax] 500 mg PO DAILY #6 tab 02/18/20 Allergies Allergy/AdvReac Type Severity Reaction Status Date / Time amoxicillin AdvReac flu like Verified 02/18/20 22:03 symptoms codeine AdvReac Nausea Verified 02/18/20 22:03 latex AdvReac pain and Verified 02/18/20 22:03 itching metformin AdvReac DIARRHEA Verified 02/18/20 22:03 AND FLU LIKE SYMPTOMS Penicillins AdvReac flu like Verified 02/18/20 22:03 symptoms Sulfa (Sulfonamide AdvReac flu like Verified 02/18/20 22:03 Antibiotics) symptoms Review of Systems ROS Statement: Those systems with pertinent positive or pertinent negative responses have been documented in the HPI. ROS Other: All systems not noted in ROS Statement are negative. Past Medical History Past Medical History: Diabetes Mellitus, Hyperlipidemia, Liver Disease Additional Past Medical History / Comment(s): Fatty liver,hx difficulty swallowing,. Left face numbness 01/16/16, red raised rash on arms and legs-went to ER, kidney stones, lower back pain(bulging L4-L5), recent admission for diverticulitis History of Any Multi-Drug Resistant Organisms: None Reported Past Surgical History: Bariatric Surgery, Section, Cholecystectomy, Hysterectomy, Tonsillectomy, Uterine Ablation Additional Past Surgical History / Comment(s): exploratory lower abdominal laparoscopy.10-11-15 lap brenda en y,. pain procedures, EGD, cholecystectomy 02/28/19, Partial hysterectomy Past Anesthesia/Blood Transfusion Reactions: No Reported Reaction Additional Past Anesthesia/Blood Transfusion Reaction / Comment(s): claustrophobia Past Psychological History: Depression Smoking Status: Never smoker Past Alcohol Use History: None Reported Past Drug Use History: None Reported - Past Family History Mother Family Medical History: Congestive Heart Failure (CHF), Fibromyalgia Additional Family Medical History / Comment(s): at 43 from heart failure General Exam - General Exam Comments Initial Comments: GENERAL: Patient is well-developed and well-nourished. Patient is nontoxic and in no acute distress. HEAD: Atraumatic, normocephalic. EYES: Pupils equal round and reactive to light, extraocular movements intact, sclera anicteric, conjunctiva are normal. Eyelids were unremarkable. ENT: TMs normal, nares patent, oropharynx clear without exudates. Moist mucous membranes. NECK: Normal range of motion, supple without lymphadenopathy or JVD. LUNGS: Unlabored respirations. Breath sounds clear to auscultation bilaterally and equal. No wheezes rales or rhonchi. HEART: Regular rate and rhythm without murmurs, rubs or gallops. ABDOMEN: Tender to palpation left lower quadrant as well as mid abdominal region. Soft, normoactive bowel sounds. No guarding, no rebound. No masses appreciated. : Deferred MUSCULOSKELETAL: Normal extremities with adequate strength and normal range of motion, no pitting or edema. No clubbing or cyanosis. NEUROLOGICAL: Patient is alert and oriented x 3. Motor and sensory are also intact. Cranial nerves II through XII grossly intact. Symmetrical smile. Normal speech, normal gait. PSYCH: Normal mood, normal affect. SKIN: Warm, Dry, normal turgor, no rashes or lesions noted. Limitations: no limitations Course Vital Signs 02/18/20 02/18/20 19:13 21:46 Temperature 98.4 F Pulse Rate 99 80 Respiratory 20 18 Rate Blood Pressure 160/95 145/83 O2 Sat by Pulse 100 99 Oximetry Medical Decision Making - Medical Decision Making Patient is a 39-year-old female here for left lower quadrant pain has been increasing over the past 2 weeks, diarrhea for 2 weeks. She is also having nausea, diarrhea, blood in her stools. Her vital signs are stable. She is afebrile today. Labs reveal a normal white count, lactic acid is 2.0, liver enzymes are normal, lipase is normal, urine shows no evidence of infection. Computed tomography scan is negative for any new or acute findings, no signs of diverticulitis. I discussed these findings with the patient. Patient was given some fluids, Zofran and morphine and does report improvement in her symptoms. Given her length of diarrhea and symptoms, I will start patient on azithromycin for diarrhea, first dose given here in the ER. Patient does have a follow-up with her GI doctor next week. She is stable for discharge and she is in agreement with this plan of care. Return parameters were discussed with the patient she verbalized understanding. - Lab Data Result diagrams: 02/18/20 19:49 02/18/20 19:49 Lab Results 02/18/20 02/18/20 02/18/20 Range/Units 19:36 19:49 19:49 WBC 5.7 (3.8-10.6) k/uL RBC 4.45 (3.80-5.40) m/uL Hgb 13.1 (11.4-16.0) gm/dL Hct 40.7 (34.0-46.0) % MCV 91.5 (80.0-100.0) fL MCH 29.5 (25.0-35.0) pg MCHC 32.2 (31.0-37.0) g/dL RDW 14.2 (11.5-15.5) % Plt Count 223 (150-450) k/uL Neutrophils % 68 % Lymphocytes % 24 % Monocytes % 4 % Eosinophils % 2 % Basophils % 0 % Neutrophils # 3.8 (1.3-7.7) k/uL Lymphocytes # 1.4 (1.0-4.8) k/uL Monocytes # 0.2 (0-1.0) k/uL Eosinophils # 0.1 (0-0.7) k/uL Basophils # 0.0 (0-0.2) k/uL Sodium 137 (137-145) mmol/L Potassium 4.4 (3.5-5.1) mmol/L Chloride 108 H (98-107) mmol/L Carbon Dioxide 19 L (22-30) mmol/L Anion Gap 10 mmol/L BUN 14 (7-17) mg/dL Creatinine 0.55 (0.52-1.04) mg/dL Est GFR (CKD-EPI)AfAm >90 (>60 ml/min/1.73 sqM) Est GFR (CKD-EPI)NonAf >90 (>60 ml/min/1.73 sqM) Glucose 125 H (74-99) mg/dL Plasma Lactic Acid Ulises (0.7-2.0) mmol/L Calcium 9.3 (8.4-10.2) mg/dL Total Bilirubin 0.4 (0.2-1.3) mg/dL AST 35 (14-36) U/L ALT 29 (4-34) U/L Alkaline Phosphatase 83 (38-126) U/L Total Protein 7.0 (6.3-8.2) g/dL Albumin 4.1 (3.5-5.0) g/dL Amylase 45 (30-110) U/L Lipase 194 (23-300) U/L Urine Color Light Yellow Urine Appearance Clear (Clear) Urine pH 6.5 (5.0-8.0) Ur Specific Williamson 1.018 (1.001-1.035) Urine Protein Negative (Negative) Urine Glucose (UA) Negative (Negative) Urine Ketones Negative (Negative) Urine Blood Moderate H (Negative) Urine Nitrite Negative (Negative) Urine Bilirubin Negative (Negative) Urine Urobilinogen <2.0 (<2.0) mg/dL Ur Leukocyte Esterase Negative (Negative) Urine RBC 17 H (0-5) /hpf Urine WBC 3 (0-5) /hpf Ur Squamous Epith Cells 7 H (0-4) /hpf Amorphous Sediment Rare H (None) /hpf Hyaline Casts 1 (0-2) /lpf Urine Mucus Rare H (None) /hpf 02/18/20 Range/Units 19:49 WBC (3.8-10.6) k/uL RBC (3.80-5.40) m/uL Hgb (11.4-16.0) gm/dL Hct (34.0-46.0) % MCV (80.0-100.0) fL MCH (25.0-35.0) pg MCHC (31.0-37.0) g/dL RDW (11.5-15.5) % Plt Count (150-450) k/uL Neutrophils % % Lymphocytes % % Monocytes % % Eosinophils % % Basophils % % Neutrophils # (1.3-7.7) k/uL Lymphocytes # (1.0-4.8) k/uL Monocytes # (0-1.0) k/uL Eosinophils # (0-0.7) k/uL Basophils # (0-0.2) k/uL Sodium (137-145) mmol/L Potassium (3.5-5.1) mmol/L Chloride (98-107) mmol/L Carbon Dioxide (22-30) mmol/L Anion Gap mmol/L BUN (7-17) mg/dL Creatinine (0.52-1.04) mg/dL Est GFR (CKD-EPI)AfAm (>60 ml/min/1.73 sqM) Est GFR (CKD-EPI)NonAf (>60 ml/min/1.73 sqM) Glucose (74-99) mg/dL Plasma Lactic Acid Ulises 2.0 (0.7-2.0) mmol/L Calcium (8.4-10.2) mg/dL Total Bilirubin (0.2-1.3) mg/dL AST (14-36) U/L ALT (4-34) U/L Alkaline Phosphatase (38-126) U/L Total Protein (6.3-8.2) g/dL Albumin (3.5-5.0) g/dL Amylase (30-110) U/L Lipase (23-300) U/L Urine Color Urine Appearance (Clear) Urine pH (5.0-8.0) Ur Specific Williamson (1.001-1.035) Urine Protein (Negative) Urine Glucose (UA) (Negative) Urine Ketones (Negative) Urine Blood (Negative) Urine Nitrite (Negative) Urine Bilirubin (Negative) Urine Urobilinogen (<2.0) mg/dL Ur Leukocyte Esterase (Negative) Urine RBC (0-5) /hpf Urine WBC (0-5) /hpf Ur Squamous Epith Cells (0-4) /hpf Amorphous Sediment (None) /hpf Hyaline Casts (0-2) /lpf Urine Mucus (None) /hpf Disposition Clinical Impression: Left lower quadrant abdominal pain, Diarrhea Disposition: HOME SELF-CARE Condition: Stable Instructions (If sedation given, give patient instructions): Acute Diarrhea (ED) Additional Instructions: Please return to the Emergency Department if symptoms worsen or any other concerns. Take antibiotic as prescribed. If symptoms persist follow up with GI physician or PCP. Prescriptions: Azithromycin [Zithromax] 500 mg PO DAILY #6 tab Is patient prescribed a controlled substance at d/c from ED?: No Referrals: Aurelio Miller Jr, [Primary Care Provider] - 1-2 days
[2020-02-18 20:18] LABS: Basophils % (A) 0 %; Eosinophils # (A) 0.1 k/uL (0-0.7); Eosinophils % (A) 2 %; HCT 40.7 % (34.0-46.0); HGB 13.1 gm/dL (11.4-16.0); Lymphocytes # (A) 1.4 k/uL (1.0-4.8); Lymphocytes % (A) 24 %; MCH 29.5 pg (25.0-35.0); MCHC 32.2 g/dL (31.0-37.0); MCV 91.5 fL (80.0-100.0); Mean Platelet Volume 6.9; Monocytes # (A) 0.2 k/uL (0-1.0); Monocytes % (A) 4 %; Neutrophils # (A) 3.8 k/uL (1.3-7.7); Neutrophils % (A) 68 %; Platelet Count 223 k/uL (150-450); RBC 4.45 m/uL (3.80-5.40); RDW 14.2 % (11.5-15.5); WBC 5.7 k/uL (3.8-10.6)
[2020-02-18 20:27] LABS: ALT 29 U/L (4-34); AST 35 U/L (14-36); African American GFR (CKD) >90 (>60 ml/min/1.73 sqM); Albumin 4.1 g/dL (3.5-5.0); Alkaline Phosphatase 83 U/L (38-126); Amylase 45 U/L (30-110); Anion Gap 10 mmol/L; Blood Urea Nitrogen 14 mg/dL (7-17); Calcium 9.3 mg/dL (8.4-10.2); Carbon Dioxide 19 mmol/L (22-30); Chloride 108 mmol/L (98-107); Glucose 125 mg/dL (74-99); Non-African American GFR(CKD) >90 (>60 ml/min/1.73 sqM); Potassium 4.4 mmol/L (3.5-5.1); Sodium 137 mmol/L (137-145); Total Bilirubin 0.4 mg/dL (0.2-1.3)
[2020-02-18 20:56] LABS: Amorphous Sediment,Urine Rare /hpf; Appearance,Urine Clear (Clear); Bilirubin,Urine Negative (Negative); Blood,Urine Moderate (Negative); Color,Urine Light Yellow; Glucose,Urine (UA) Negative (Negative); Hyaline Casts,Urine 1 /lpf (0-2); Ketones,Urine Negative (Negative); Leukocyte Esterase,Urine Negative (Negative); Mucus,Urine Rare /hpf; Nitrite,Urine Negative (Negative); PH, Urine 6.5 (5.0-8.0); Protein,Urine Negative (Negative); RBC,Urine 17 /hpf (0-5); Specific Gravity,Urine 1.018 (1.001-1.035); Squamous Epithelial Cell,Urine 7 /hpf (0-4); Urobilinogen,Urine <2.0 mg/dL (<2.0); WBC,Urine 3 /hpf (0-5)
[2020-02-18 21:46] VITALS: RESP 18
[2020-02-18] MEDS ORDERED: MORPHINE SULFATE 4 MG/ML SYRINGE IVP STA (21:48)
--- NOTE | 2020-02-18 22:00 | CT ---
EXAMINATION TYPE: CT abdomen pelvis w con DATE OF EXAM: 02/18/2020 HISTORY: LLQ pain, Hx , viviana, hysterectomy. CT DLP: 2595mGycm Automated Exposure Control for Dose Reduction was Utilized. CONTRAST: CT scan of the abdomen and pelvis is performed without oral but with IV Contrast, patient injected wi th 100 mL of Isovue 300. COMPARISON: CT abdomen and pelvis July 10, 2019 and older CTs FINDINGS: LUNG BASES: No significant abnormality is appreciated. LIVER/GB: Gallbladder not visualized presumably surgically absent. Liver is low dense consistent with diffuse fatty infiltration. Stable mild hepatomegaly. PANCREAS: No significant abnormality is seen. SPLEEN: No significant abnormality is seen. ADRENALS: No significant abnormality is seen. KIDNEYS: Symmetric cortical medullary uptake and excretion without hydronephrosis seen bilaterally. S table 1 to 2 mm nonobstructing calculus upper pole level left kidney coronal image 74 BOWEL: Suboptimal evaluation of bowel without enteric contrast. Surgical changes from gastric bypass epigastric region redemonstrated. No suspicious small or large bowel dilatation. Additional surgical sutures left mid small bowel loop axial image 44 again seen. Normal-appearing appendix from the cecum in the right upper pelvis. UTERUS/ADNEXA: Uterus surgically absent. LYMPH NODES: No greater than 1cm abdominal or pelvic lymph nodes are appreciated. OSSEOUS STRUCTURES: Suspect limbus vertebra anterior superior L4 level. Moderate disc space narrowing affecting disc phenomenon and spurring L4-L5 level. Additional [id number] multilevel spurring in the lumbar spine. OTHER: No significant additional abnormality is seen. IMPRESSION: No significant new or acute finding is seen to account for patient's clinical symptoms of left lower quadrant pain.
[2020-02-18] MEDS ORDERED: AZITHROMYCIN 500 MG TAB PO STA (22:10)
[2020-02-18] MEDS ORDERED: ONDANSETRON 4 MG ODT STARTER PACK 2 TAB BTL PO STA (22:32)
[2020-02-18 22:37] VITALS: BP 163/87; PULSE 92; TEMP 98.6
== END 2020-02-18 22:21 | disposition home or self-care (01) ==
LOC: EC 19:12
DX: R10.32 Left lower quadrant pain (principal); R19.7 Diarrhea, unspecified; R11.0 Nausea; Z90.49 Acquired absence of other specified parts of digestive tract; Z90.710 Acquired absence of both cervix and uterus; Z88.0 Allergy status to penicillin; Z88.2 Allergy status to sulfonamides; Z88.5 Allergy status to narcotic agent; Z88.8 Allergy status to other drugs, medicaments and biological substances; Z91.040 Latex allergy status
CPT/HCPCS: 36415; 80053; 82150; 83605; 83690; 85025; 81001; 74177; 99284; 96374; 96375; 96361 ×2; J2270; J2405; S0119; Q9967

== ENCOUNTER 2020-02-28 22:32 | Emergency (ER) | payer OTHER ==
[2020-02-28 22:46] VITALS: TEMP 98.6
[2020-02-28] MEDS ORDERED: SODIUM CHLORIDE 0.9% 1,000 ML IV ONE (23:08)
[2020-02-28] MEDS ORDERED: ONDANSETRON 4 MG/2 ML VIAL IVP STA (23:08)
[2020-02-28] MEDS ORDERED: MORPHINE SULFATE 4 MG/ML SYRINGE IV STA (23:08)
--- NOTE | 2020-02-28 23:27 | ED ---
General Adult HPI - General Chief complaint: Nausea/Vomiting/Diarrhea Stated complaint: Chest Pain Time Seen by Provider: 02/28/20 22:55 Source: patient, RN notes reviewed, old records reviewed Mode of arrival: wheelchair Limitations: no limitations - History of Present Illness Initial comments: 39-year-old female patient presents to ED for evaluation. Patient reports that 5 days ago she had an overstitch procedure on her existing bariatric surgery. This was done endoscopically. Patient reports that since then she has been having epigastric abdominal pain and some substernal pain. Patient states she has not been able to keep down any fluids with nausea and vomiting. Denies any shortness of breath. Denies any other acute complaints. Systemic: Pt denies fatigue, fever/chills, rash. Pt denies weakness, night sweats, weight loss. Neuro: Pt denies headache, visual disturbances, syncope or pre-syncope. HEENT: Pt denies ocular discharge or irritation, otalgia, rhinorrhea, pharyngitis or notable lymphadenopathy. Cardiopulmonary: Pt denies SOB, heart palpitations, dyspnea on exertion. Abdominal/GI: Pt denies diarrhea. : Pt denies dysuria, burning w/ urination, frequency/urgency. Denies new onset urinary or bowel incontinence. MSK: Pt denies myalgia, loss of strength or function in extremities. Neuro: Pt denies new onset weakness, paresthesias. - Related Data Previous Rx's Medication Instructions Recorded Azithromycin [Zithromax] 500 mg PO DAILY #6 tab 02/18/20 Allergies Allergy/AdvReac Type Severity Reaction Status Date / Time amoxicillin AdvReac flu like Verified 02/28/20 22:46 symptoms codeine AdvReac Nausea Verified 02/28/20 22:46 latex AdvReac pain and Verified 02/28/20 22:46 itching metformin AdvReac DIARRHEA Verified 02/28/20 22:46 AND FLU LIKE SYMPTOMS Penicillins AdvReac flu like Verified 02/28/20 22:46 symptoms Sulfa (Sulfonamide AdvReac flu like Verified 02/28/20 22:46 Antibiotics) symptoms Review of Systems ROS Statement: Those systems with pertinent positive or pertinent negative responses have been documented in the HPI. ROS Other: All systems not noted in ROS Statement are negative. Past Medical History Past Medical History: Diabetes Mellitus, Hyperlipidemia, Liver Disease Additional Past Medical History / Comment(s): Fatty liver,hx difficulty swallowing,. Left face numbness 01/16/16, red raised rash on arms and legs-went to ER, kidney stones, lower back pain(bulging L4-L5), recent admission for diverticulitis History of Any Multi-Drug Resistant Organisms: None Reported Past Surgical History: Bariatric Surgery, Section, Cholecystectomy, Hysterectomy, Tonsillectomy, Uterine Ablation Additional Past Surgical History / Comment(s): exploratory lower abdominal laparoscopy.10-11-15 lap brenda en y,. pain procedures, EGD, cholecystectomy 02/28/19, Partial hysterectomy Past Anesthesia/Blood Transfusion Reactions: No Reported Reaction Additional Past Anesthesia/Blood Transfusion Reaction / Comment(s): claustrophobia Past Psychological History: Depression Smoking Status: Never smoker Past Alcohol Use History: None Reported Past Drug Use History: None Reported - Past Family History Mother Family Medical History: Congestive Heart Failure (CHF), Fibromyalgia Additional Family Medical History / Comment(s): at 43 from heart failure General Exam - General Exam Comments Initial Comments: Constitutional: NAD, AOX3, Pt has pleasant affect. HEENT: NC/AT, trachea midline, neck supple, no lymphadenopathy. Posterior pharynx non erythematous, without exudates. External ears appear normal, without discharge. Mucous membranes moist. Eyes PERRLA, EOM intact. There is no scleral icterus. No pallor noted. Cardiopulmonary: RRR, no murmurs, rubs or gallops, no JVD noted. Lungs CTAB in anterior and posterior lopez. No peripheral edema. Abdominal exam: Abdomen soft and non-distended. Abdomen mildly tender to palpaton in epigastric region. Bowel sounds active in LLQ. No hepatosplenomegaly. No ecchymosis Neuro: CN II-XII grossly intact. No nuchal rigidity. MSK: No posterior calf tenderness bilaterally. Posterior tibialis and radial pulse +2 bilaterally. Sensation intact in upper and lower extremities. Full active ROM in upper and lower extremities, 5/5 stregnth. Limitations: no limitations Course Vital Signs 02/28/20 02/29/20 22:42 00:41 Temperature 98.6 F Pulse Rate 107 H 100 Respiratory 20 18 Rate Blood Pressure 145/87 144/90 O2 Sat by Pulse 95 98 Oximetry Medical Decision Making - Medical Decision Making 39-year-old feel patient received chief complaint postoperative pain and nausea and vomiting. Vital signs stable, physical exam displayed epigastric tenderness. Laboratory investigations overall unremarkable. Patient declined p roviding urine sample. EKG was sinus tach. CT abdomen and pelvis displayed no signs of acute abdomen pelvis. CT negative for PE. Patient doesn't well controlled. Patient is requesting immediate discharge. Patient will follow-up with her surgeon tomorrow and will return here if any worsening symptoms.Case discssed with Dr. Newton. - Lab Data Result diagrams: 02/28/20 23:27 02/28/20 23:27 Lab Results 02/28/20 02/28/20 02/28/20 Range/Units 23:27 23:27 23:27 WBC 6.7 (3.8-10.6) k/uL RBC 4.80 (3.80-5.40) m/uL Hgb 14.0 (11.4-16.0) gm/dL Hct 42.7 (34.0-46.0) % MCV 89.0 (80.0-100.0) fL MCH 29.2 (25.0-35.0) pg MCHC 32.8 (31.0-37.0) g/dL RDW 13.5 (11.5-15.5) % Plt Count 240 (150-450) k/uL Neutrophils % 74 % Lymphocytes % 17 % Monocytes % 5 % Eosinophils % 3 % Basophils % 1 % Neutrophils # 4.9 (1.3-7.7) k/uL Lymphocytes # 1.2 (1.0-4.8) k/uL Monocytes # 0.3 (0-1.0) k/uL Eosinophils # 0.2 (0-0.7) k/uL Basophils # 0.0 (0-0.2) k/uL Sodium 139 (137-145) mmol/L Potassium 3.8 (3.5-5.1) mmol/L Chloride 104 (98-107) mmol/L Carbon Dioxide 21 L (22-30) mmol/L Anion Gap 14 mmol/L BUN 6 L (7-17) mg/dL Creatinine 0.64 (0.52-1.04) mg/dL Est GFR (CKD-EPI)AfAm >90 (>60 ml/min/1.73 sqM) Est GFR (CKD-EPI)NonAf >90 (>60 ml/min/1.73 sqM) Glucose 125 H (74-99) mg/dL Plasma Lactic Acid Ulises 0.9 (0.7-2.0) mmol/L Calcium 9.7 (8.4-10.2) mg/dL Total Bilirubin 0.6 (0.2-1.3) mg/dL AST 51 H (14-36) U/L ALT 57 H (4-34) U/L Alkaline Phosphatase 90 (38-126) U/L Troponin I (0.000-0.034) ng/mL Total Protein 7.9 (6.3-8.2) g/dL Albumin 4.7 (3.5-5.0) g/dL Lipase 157 (23-300) U/L 02/28/20 Range/Units 23:27 WBC (3.8-10.6) k/uL RBC (3.80-5.40) m/uL Hgb (11.4-16.0) gm/dL Hct (34.0-46.0) % MCV (80.0-100.0) fL MCH (25.0-35.0) pg MCHC (31.0-37.0) g/dL RDW (11.5-15.5) % Plt Count (150-450) k/uL Neutrophils % % Lymphocytes % % Monocytes % % Eosinophils % % Basophils % % Neutrophils # (1.3-7.7) k/uL Lymphocytes # (1.0-4.8) k/uL Monocytes # (0-1.0) k/uL Eosinophils # (0-0.7) k/uL Basophils # (0-0.2) k/uL Sodium (137-145) mmol/L Potassium (3.5-5.1) mmol/L Chloride (98-107) mmol/L Carbon Dioxide (22-30) mmol/L Anion Gap mmol/L BUN (7-17) mg/dL Creatinine (0.52-1.04) mg/dL Est GFR (CKD-EPI)AfAm (>60 ml/min/1.73 sqM) Est GFR (CKD-EPI)NonAf (>60 ml/min/1.73 sqM) Glucose (74-99) mg/dL Plasma Lactic Acid Ulises (0.7-2.0) mmol/L Calcium (8.4-10.2) mg/dL Total Bilirubin (0.2-1.3) mg/dL AST (14-36) U/L ALT (4-34) U/L Alkaline Phosphatase (38-126) U/L Troponin I <0.012 (0.000-0.034) ng/mL Total Protein (6.3-8.2) g/dL Albumin (3.5-5.0) g/dL Lipase (23-300) U/L - EKG Data -: EKG Interpreted by Me (and Dr. Newton ) EKG Comments: ventricular rate 107, NE interval 112, QRS 78, QT/QTC 368/491. Sinus tachycardia, cannot rule out anterior infarct age undetermined. No concern for acute ischemia at this time. Disposition Clinical Impression: Post-operative pain Disposition: HOME SELF-CARE Condition: Stable Instructions (If sedation given, give patient instructions): Abdominal Pain (ED) Additional Instructions: follow-up with primary care provider and surgeon tomorrow. Return to ER if any worsening symptoms. Is patient prescribed a controlled substance at d/c from ED?: No Referrals: Aurelio Miller Jr, [Primary Care Provider] - 1-2 days
[2020-02-28 23:39] LABS: Basophils % (A) 1 %; Eosinophils # (A) 0.2 k/uL (0-0.7); Eosinophils % (A) 3 %; HCT 42.7 % (34.0-46.0); Lymphocytes # (A) 1.2 k/uL (1.0-4.8); Lymphocytes % (A) 17 %; MCH 29.2 pg (25.0-35.0); MCHC 32.8 g/dL (31.0-37.0); Mean Platelet Volume 6.6; Monocytes # (A) 0.3 k/uL (0-1.0); Monocytes % (A) 5 %; Neutrophils # (A) 4.9 k/uL (1.3-7.7); Neutrophils % (A) 74 %; Platelet Count 240 k/uL (150-450); RDW 13.5 % (11.5-15.5); WBC 6.7 k/uL (3.8-10.6)
[2020-02-28 23:47] LABS: ALT 57 U/L (4-34); AST 51 U/L (14-36); African American GFR (CKD) >90 (>60 ml/min/1.73 sqM); Albumin 4.7 g/dL (3.5-5.0); Alkaline Phosphatase 90 U/L (38-126); Anion Gap 14 mmol/L; Blood Urea Nitrogen 6 mg/dL (7-17); Calcium 9.7 mg/dL (8.4-10.2); Carbon Dioxide 21 mmol/L (22-30); Chloride 104 mmol/L (98-107); Glucose 125 mg/dL (74-99); Non-African American GFR(CKD) >90 (>60 ml/min/1.73 sqM); Potassium 3.8 mmol/L (3.5-5.1); Sodium 139 mmol/L (137-145); Total Bilirubin 0.6 mg/dL (0.2-1.3); Total Protein 7.9 g/dL (6.3-8.2)
[2020-02-29] MEDS ORDERED: METOCLOPRAMIDE 5 MG/ML 2 ML VIAL IVP STA (00:19)
[2020-02-29] MEDS ORDERED: HYDROmorphone 0.5 MG/0.5 ML SYRINGE IVP STA (00:19)
[2020-02-29 00:42] VITALS: BP 144/90; PULSE 100; RESP 18
--- NOTE | 2020-02-29 00:51 | CT ---
EXAMINATION TYPE: CT abdomen pelvis w con DATE OF EXAM: 02/29/2020 COMPARISON: 02/18/2020 HISTORY: pain CT DLP: 2213.7 mGycm Automated exposure control for dose reduction was used. CONTRAST: Performed with IV Contrast, patient injected with 100 mL of Isovue 370. The lung bases are clear. There is no pleural effusion. Heart size is normal. There is no pericardial effusion. There is mild fatty infiltration of the liver. Liver is enlarged and measures 24 cm There are numerous surgical clips at the gastric fundus. Gallbladder appears absent. Bile ducts are not dil ated. Spleen is intact. There is no pancreatic mass. There is no adrenal mass. Kidneys show satisfactory contrast opacification. There is no hydronephrosi s. There is no retroperitoneal adenopathy. There is no inguinal hernia. There is probably a tiny amou nt of free fluid in the pelvis. Bladder distends smoothly. There is hysterectomy. Appendix is posterior and appears normal. There is no mesenteric edema. There is no ascites or free a ir. There is no bowel obstruction. There is normal alignment of the vertebra. There is disc space narrowing at L4-5 and L5-S1. There is no compression fracture. The bony pelvis is intact. Hip joints are intact. IMPRESSION: Mild fatty infiltration of the liver. Hepatomegaly. Normal appendix. No sign of acute abdomen and pel vis. Small amount of fluid in the pelvis could be physiologic. Overall no adverse change compared to old exam.
--- NOTE | 2020-02-29 00:57 | CT ---
EXAMINATION TYPE: CT chest angio for PE DATE OF EXAM: 02/29/2020 COMPARISON: HISTORY: pain CT DLP: 714.1 mGycm Automated exposure control for dose reduction was used. CONTRAST: Performed with IV Contrast, patient injected with 100 mL of Isovue 370. There are 3-D post processed images. The lungs are clear of infiltrate. There is no pleural effusion. There is fatty infiltration of the l iver. Liver appears enlarged. There is gastric bariatric surgery. Heart appears enlarged. There is no pericardial effusion. There are no hilar masses. There is no medi astinal adenopathy. Thoracic aorta is intact. There is no aneurysm or dissection. There is normal contrast opacification of the pulmonary arteries. There are no filling defects. Thoracic spine is intact. There is no compression fracture. IMPRESSION: No evidence of pulmonary embolism. Mild cardiomegaly.
== END 2020-02-29 02:32 | disposition home or self-care (01) ==
LOC: EC 22:32
DX: G89.18 Other acute postprocedural pain (principal); R11.2 Nausea with vomiting, unspecified; R10.816 Epigastric abdominal tenderness; R00.0 Tachycardia, unspecified; Z88.0 Allergy status to penicillin; Z88.5 Allergy status to narcotic agent; Z88.8 Allergy status to other drugs, medicaments and biological substances; Z91.040 Latex allergy status; Z88.2 Allergy status to sulfonamides; Z98.84 Bariatric surgery status; Z90.49 Acquired absence of other specified parts of digestive tract; Z90.710 Acquired absence of both cervix and uterus; Z98.890 Other specified postprocedural states; Z87.442 Personal history of urinary calculi
CPT/HCPCS: 93005; 80053; 83605; 83690; 84484; 85025; 71275; 74177; 99285; 96374; 96375 ×3; 96361; J2270; J2765; J2405; J1170; Q9967

== ENCOUNTER 2020-08-01 12:26 | Emergency (ER) | payer OTHER ==
[2020-08-01 12:32] VITALS: RESP 18; TEMP 98.1
[2020-08-01] MEDS ORDERED: LIDOCAINE 1% INJ 10MG/ML (20 ML MDV) SQ ONE (12:39)
[2020-08-01] MEDS ORDERED: CLINDAMYCIN 150 MG CAP PO STA (13:49)
--- NOTE | 2020-08-01 13:54 | ED ---
Skin/Abscess/FB HPI - General Chief complaint: Skin/Abscess/Foreign Body Stated complaint: back pain Time Seen by Provider: 08/01/20 12:33 Source: patient Mode of arrival: ambulatory Limitations: no limitations - History of Present Illness Initial comments: 40-year-old female presenting today for chief complaint of buttock abscess x 1 month. Patient states that she hasa lump on the right buttock she states initially began as a pimple-like lesion states has been present but not painful. Patient states that past 2 days has been painful she has tried draining but only blood is coming out. Patient states he now feels hard around the area. Patient denies any rectal bleeding or pain. Patient states it hurts to sit on the area. She denies any fevers chills general malaise. Remaining review of system negative upon arrival patient appears well nontoxic no acute distress - Related Data Home Medications Medication Instructions Recorded Confirmed Sertraline HCl [Zoloft] 50 mg PO HS 08/01/20 08/01/20 Sertraline HCl [Zoloft] 100 mg PO HS 08/01/20 08/01/20 Previous Rx's Medication Instructions Recorded Clindamycin [Cleocin] 450 mg PO Q8H 7 Days #63 capsule 08/01/20 Allergies Allergy/AdvReac Type Severity Reaction Status Date / Time amoxicillin AdvReac flu like Verified 08/01/20 13:41 symptoms codeine AdvReac Nausea Verified 08/01/20 13:41 latex AdvReac pain and Verified 08/01/20 13:41 itching metformin AdvReac DIARRHEA Verified 08/01/20 13:41 AND FLU LIKE SYMPTOMS Penicillins AdvReac flu like Verified 08/01/20 13:41 symptoms Sulfa (Sulfonamide AdvReac flu like Verified 08/01/20 13:41 Antibiotics) symptoms Review of Systems ROS Statement: Those systems with pertinent positive or pertinent negative responses have been documented in the HPI. ROS Other: All systems not noted in ROS Statement are negative. Past Medical History Past Medical History: Diabetes Mellitus, Hyperlipidemia, Liver Disease Additional Past Medical History / Comment(s): Fatty liver,hx difficulty swallowing,. Left face numbness 01/16/16, red raised rash on arms and legs-went to ER, kidney stones, lower back pain(bulging L4-L5), recent admission for diverticulitis History of Any Multi-Drug Resistant Organisms: None Reported Past Surgical History: Bariatric Surgery, Section, Cholecystectomy, Hysterectomy, Tonsillectomy, Uterine Ablation Additional Past Surgical History / Comment(s): exploratory lower abdominal laparoscopy.10-11-15 lap brenda en y,. pain procedures, EGD, cholecystectomy 02/28/19, Partial hysterectomy Past Anesthesia/Blood Transfusion Reactions: No Reported Reaction Additional Past Anesthesia/Blood Transfusion Reaction / Comment(s): claustrophobia Past Psychological History: Depression Smoking Status: Never smoker Past Alcohol Use History: None Reported Past Drug Use History: None Reported - Past Family History Mother Family Medical History: Congestive Heart Failure (CHF), Fibromyalgia Additional Family Medical History / Comment(s): at 43 from heart failure General Exam - General Exam Comments Initial Comments: General: The patient is awake and alert, in no distress Eye: Pupils are equal, round and reactive to light, extra-ocular movements are intact. No nystagmus. There is normal conjunctiva bilaterally. No signs of icterus. Cardiovascular: There is a regular rate and rhythm. No murmur, rub or gallop is appreciated. Respiratory: Lungs are clear to auscultation, respirations are non-labored, breath sounds are equal. No wheezes, stridor, rales, or rhonchi. Gastrointestinal: Soft, non-distended, non-tender abdomen without masses or organomegaly noted. There is no rebound or guarding present. : there is a small 3/4cm pimple like lesion right inner buttock, 6cm + from anus. some surrounding induration/redness. no spontanous drainge or opening. Musculoskeletal: Normal ROM, no tenderness. Strength 5/5. Sensation intact. Pulses equal bilaterally 2+. Neurological: A&O x 3. CN II-XII intact grossly, There are no obvious motor or sensory deficits. Coordination appears grossly intact. Speech is normal. Skin: Skin is warm and dry and no rashes or lesions are noted. Psychiatric: Cooperative, appropriate mood & affect, normal judgment. Limitations: no limitations Course Vital Signs 08/01/20 08/01/20 12:29 14:16 Temperature 98.1 F 98.1 F Pulse Rate 105 H 96 Respiratory 18 18 Rate Blood Pressure 148/98 142/80 O2 Sat by Pulse 98 98 Oximetry Procedures - [place] Protocol (Time Out) Procedure Performed:: I&D of right buttock Performing Provider: Nhi Calzada Nurse: Sue Conn Patient Identification (2 identifiers required): Chart, Verbal Patient/Legal [employer] Supervisor has Confirmed: Identity, Site Site: right buttocks Site Marked: Yes Site Verified With Patient/Guardian: Yes - Incision & Drainage Consent Obtained: verbal consent Indication: abscess Site: buttock Size (cm): 2 Anesthetic Used: lidocaine 1% Amount (mLs): 2 I&D Cleaning Method: Iodine Sterile Field Used?: No Scalpel Used: #11 Needle Aspiration Performed?: No Irrigation Performed?: No I&D Drainage Obtained: Blood Culture Obtained?: No Patient Tolerated Procedure: well, no complications Medical Decision Making - Medical Decision Making I&D performed with patient consent. No purulent drainge only blood. Patient will be placed on oral abx and recommended f/u with general surgery. Patient is to return for worsening pain/swelling/drainage/fevers or feeling unwell. Patient agreeable to this care plan as is attending Dr. Almazan. Disposition Clinical Impression: Left buttock abscess Disposition: HOME SELF-CARE Condition: Good Instructions (If sedation given, give patient instructions): Abscess Incision and Drainage (ED), Abscess (ED) Additional Instructions: Please use medication as discussed. Please follow-up with general surgery in 2- 3 days. Please return to emergency room if the symptoms increase or worsen or for any other concerns, increasing swelling/pain/redness/fevers. Prescriptions: Clindamycin [Cleocin] 450 mg PO Q8H 7 Days #63 capsule Is patient prescribed a controlled substance at d/c from ED?: No Referrals: Aurelio Miller Jr, DO [Primary Care Provider] - 1-2 days Shay Lawton DO [Doctor of Osteopathic Medicine] - 1-2 days Time of Disposition: 13:54
[2020-08-01 14:18] VITALS: BP 142/80; PULSE 96
== END 2020-08-01 14:18 | disposition home or self-care (01) ==
LOC: EC 12:26
DX: L02.31 Cutaneous abscess of buttock (principal); F32.9 Major depressive disorder, single episode, unspecified; Z79.899 Other long term (current) drug therapy; Z88.0 Allergy status to penicillin; Z88.5 Allergy status to narcotic agent; Z91.040 Latex allergy status; Z88.8 Allergy status to other drugs, medicaments and biological substances; Z88.2 Allergy status to sulfonamides; Z87.442 Personal history of urinary calculi
CPT/HCPCS: 99283; 10060; J2001

== ENCOUNTER 2020-09-08 17:58 | Emergency (ER) | payer OTHER ==
[2020-09-08 18:42] VITALS: PULSE 88
[2020-09-08] MEDS ORDERED: SODIUM CHLORIDE 0.9% 1,000 ML IV STA (20:20)
[2020-09-08] MEDS ORDERED: HYDROmorphone 0.5 MG/0.5 ML SYRINGE IVP STA (20:20)
--- NOTE | 2020-09-08 20:26 | ED ---
GI Bleed HPI - General Chief complaint: GI Bleed Stated complaint: Blood in stool Time Seen by Provider: 09/08/20 20:11 Source: patient, RN notes reviewed Mode of arrival: ambulatory Limitations: no limitations - History of Present Illness Initial comments: Patient is a 40-year-old female that presents to emergency department complaining of GI bleed since Sunday. She notes that on Sunday she had minimal amounts of bright red blood per rectum on a bowel movement. She notes that over the last couple days that increase in blood has been significant, she did show a picture to myself and ER nurse showing toilet water being completely red. She states that she does have a history of diverticulitis but can't remember the exact time of her last flareup. She states that she is in a uncomfortable 5 out of 10 dull pain while resting in bed but a 10 out of 10 on palpation. She notes that she cannot take Toradol or morphine. She denied any chest pain shortness of breath headache nausea vomiting diarrhea constipation fever fatigue chills. - Related Data Home Medications Medication Instructions Recorded Confirmed Sertraline HCl [Zoloft] 50 mg PO HS 08/01/20 08/01/20 Sertraline HCl [Zoloft] 100 mg PO HS 08/01/20 08/01/20 Previous Rx's Medication Instructions Recorded Clindamycin [Cleocin] 450 mg PO Q8H 7 Days #63 capsule 08/01/20 Allergies Allergy/AdvReac Type Severity Reaction Status Date / Time amoxicillin AdvReac flu like Verified 09/08/20 18:42 symptoms codeine AdvReac Nausea Verified 09/08/20 18:42 ketorolac [From Toradol] AdvReac Unknown Verified 09/08/20 18:42 latex AdvReac pain and Verified 09/08/20 18:42 itching metformin AdvReac DIARRHEA Verified 09/08/20 18:42 AND FLU LIKE SYMPTOMS Penicillins AdvReac flu like Verified 09/08/20 18:42 symptoms Sulfa (Sulfonamide AdvReac flu like Verified 09/08/20 18:42 Antibiotics) symptoms Review of Systems ROS Statement: Those systems with pertinent positive or pertinent negative responses have been documented in the HPI. ROS Other: All systems not noted in ROS Statement are negative. Past Medical History Past Medical History: Diabetes Mellitus, Hyperlipidemia, Liver Disease Additional Past Medical History / Comment(s): Fatty liver,hx difficulty swallowing,. Left face numbness 01/16/16, red raised rash on arms and legs-went to ER, kidney stones, lower back pain(bulging L4-L5), recent admission for diverticulitis History of Any Multi-Drug Resistant Organisms: None Reported Past Surgical History: Bariatric Surgery, Section, Cholecystectomy, Hysterectomy, Tonsillectomy, Uterine Ablation Additional Past Surgical History / Comment(s): exploratory lower abdominal laparoscopy.10-11-15 lap brenda en y,. pain procedures, EGD, cholecystectomy 02/28/19, Partial hysterectomy Past Anesthesia/Blood Transfusion Reactions: No Reported Reaction Additional Past Anesthesia/Blood Transfusion Reaction / Comment(s): claustrophobia Past Psychological History: Depression Smoking Status: Never smoker Past Alcohol Use History: None Reported Past Drug Use History: None Reported - Past Family History Mother Family Medical History: Congestive Heart Failure (CHF), Fibromyalgia Additional Family Medical History / Comment(s): at 43 from heart failure General Exam Limitations: no limitations General appearance: alert, in no apparent distress, obese Head exam: Present: atraumatic, normocephalic, normal inspection Eye exam: Present: normal appearance, PERRL, EOMI. Absent: scleral icterus, conjunctival injection, periorbital swelling Neck exam: Present: normal inspection. Absent: tenderness, meningismus, lymphadenopathy Respiratory exam: Present: normal lung sounds bilaterally. Absent: respiratory distress, wheezes, rales, rhonchi, stridor Cardiovascular Exam: Present: regular rate, normal rhythm, normal heart sounds. Absent: systolic murmur, diastolic murmur, rubs, gallop, clicks GI/Abdominal exam: Present: soft, tenderness (Left lower quadrant), rebound (Left lower quadrant), hypoactive bowel sounds. Absent: distended, guarding, rigid Neurological exam: Present: alert, oriented X3, CN II-XII intact Psychiatric exam: Present: normal affect, normal mood Skin exam: Present: warm, dry, intact, normal color. Absent: rash Course Vital Signs 09/08/20 18:39 Temperature 98.8 F Pulse Rate 88 Respiratory 20 Rate Blood Pressure 160/108 O2 Sat by Pulse 100 Oximetry Medical Decision Making - Medical Decision Making 40-year-old female complaining of GI bleed for 3-4 days. Labs, CT of the abdomen and pelvis, 1 mg of Dilaudid, 1 L of normal saline o rdered. CT of abdomen and pelvis negative for any acute process. Case discussed with Dr. Newton outpatient discharge home with follow-up primary care. - Lab Data Result diagrams: 09/08/20 21:00 09/08/20 21:00 Lab Results 09/08/20 09/08/20 09/08/20 Range/Units 21:00 21:00 21:00 WBC 5.5 (3.8-10.6) k/uL RBC 4.46 (3.80-5.40) m/uL Hgb 12.8 (11.4-16.0) gm/dL Hct 39.6 (34.0-46.0) % MCV 88.9 (80.0-100.0) fL MCH 28.7 (25.0-35.0) pg MCHC 32.2 (31.0-37.0) g/dL RDW 16.8 H (11.5-15.5) % Plt Count 212 (150-450) k/uL MPV 6.5 Neutrophils % 70 % Lymphocytes % 22 % Monocytes % 5 % Eosinophils % 2 % Basophils % 0 % Neutrophils # 3.8 (1.3-7.7) k/uL Lymphocytes # 1.2 (1.0-4.8) k/uL Monocytes # 0.3 (0-1.0) k/uL Eosinophils # 0.1 (0-0.7) k/uL Basophils # 0.0 (0-0.2) k/uL Anisocytosis Slight APTT 25.3 (22.0-30.0) sec Sodium 136 L (137-145) mmol/L Potassium 4.3 (3.5-5.1) mmol/L Chloride 105 (98-107) mmol/L Carbon Dioxide 22 (22-30) mmol/L Anion Gap 9 mmol/L BUN 14 (7-17) mg/dL Creatinine 0.46 L (0.52-1.04) mg/dL Est GFR (CKD-EPI)AfAm >90 (>60 ml/min/1.73 sqM) Est GFR (CKD-EPI)NonAf >90 (>60 ml/min/1.73 sqM) Glucose 99 (74-99) mg/dL Calcium 9.1 (8.4-10.2) mg/dL Total Bilirubin 0.6 (0.2-1.3) mg/dL AST 41 H (14-36) U/L ALT 27 (4-34) U/L Alkaline Phosphatase 93 (38-126) U/L Troponin I (0.000-0.034) ng/mL Total Protein 7.3 (6.3-8.2) g/dL Albumin 4.5 (3.5-5.0) g/dL Lipase 110 (23-300) U/L Stool Occult Blood (Negative) 09/08/20 09/08/20 Range/Units 21:00 21:00 WBC (3.8-10.6) k/uL RBC (3.80-5.40) m/uL Hgb (11.4-16.0) gm/dL Hct (34.0-46.0) % MCV (80.0-100.0) fL MCH (25.0-35.0) pg MCHC (31.0-37.0) g/dL RDW (11.5-15.5) % Plt Count (150-450) k/uL MPV Neutrophils % % Lymphocytes % % Monocytes % % Eosinophils % % Basophils % % Neutrophils # (1.3-7.7) k/uL Lymphocytes # (1.0-4.8) k/uL Monocytes # (0-1.0) k/uL Eosinophils # (0-0.7) k/uL Basophils # (0-0.2) k/uL Anisocytosis APTT (22.0-30.0) sec Sodium (137-145) mmol/L Potassium (3.5-5.1) mmol/L Chloride (98-107) mmol/L Carbon Dioxide (22-30) mmol/L Anion Gap mmol/L BUN (7-17) mg/dL Creatinine (0.52-1.04) mg/dL Est GFR (CKD-EPI)AfAm (>60 ml/min/1.73 sqM) Est GFR (CKD-EPI)NonAf (>60 ml/min/1.73 sqM) Glucose (74-99) mg/dL Calcium (8.4-10.2) mg/dL Total Bilirubin (0.2-1.3) mg/dL AST (14-36) U/L ALT (4-34) U/L Alkaline Phosphatase (38-126) U/L Troponin I <0.012 (0.000-0.034) ng/mL Total Protein (6.3-8.2) g/dL Albumin (3.5-5.0) g/dL Lipase (23-300) U/L Stool Occult Blood Positive H (Negative) - Radiology Data Radiology results: report reviewed, image reviewed CT of the abdomen and pelvis: Previous bariatric surgery. No acute abnormality of the abdomen and pelvis. No adverse change compared to old exam. There is clearing of the small amount of pelvic fluid compared to old exam. Normal appendix Disposition Clinical Impression: Hematochezia Disposition: HOME SELF-CARE Condition: Stable Instructions (If sedation given, give patient instructions): Gastrointestinal Bleeding (ED) Additional Instructions: Please return to the Emergency Department if symptoms worsen or any other concerns. Follow-up with primary care in 3-5 days. Take [id number] anti-inflammatories for pain control. Increase oral fluid intake, eat a bowel resting diet with easy foods digest. Is patient prescribed a controlled substance at d/c from ED?: No Referrals: Aurelio Miller Jr, [Primary Care Provider] - 1-2 days Time of Disposition: 22:45
[2020-09-08 21:11] LABS: Anisocytosis Slight; Basophils % (A) 0 %; Eosinophils # (A) 0.1 k/uL (0-0.7); Eosinophils % (A) 2 %; HCT 39.6 % (34.0-46.0); HGB 12.8 gm/dL (11.4-16.0); Lymphocytes # (A) 1.2 k/uL (1.0-4.8); Lymphocytes % (A) 22 %; MCH 28.7 pg (25.0-35.0); MCHC 32.2 g/dL (31.0-37.0); MCV 88.9 fL (80.0-100.0); Mean Platelet Volume 6.5; Monocytes # (A) 0.3 k/uL (0-1.0); Monocytes % (A) 5 %; Neutrophils # (A) 3.8 k/uL (1.3-7.7); Neutrophils % (A) 70 %; Platelet Count 212 k/uL (150-450); RBC 4.46 m/uL (3.80-5.40); RDW 16.8 % (11.5-15.5); WBC 5.5 k/uL (3.8-10.6)
[2020-09-08] MEDS ORDERED: ONDANSETRON 4 MG/2 ML VIAL IVP STA (21:15)
[2020-09-08 21:16] LABS: ALT 27 U/L (4-34); AST 41 U/L (14-36); African American GFR (CKD) >90 (>60 ml/min/1.73 sqM); Albumin 4.5 g/dL (3.5-5.0); Alkaline Phosphatase 93 U/L (38-126); Anion Gap 9 mmol/L; Blood Urea Nitrogen 14 mg/dL (7-17); Calcium 9.1 mg/dL (8.4-10.2); Carbon Dioxide 22 mmol/L (22-30); Chloride 105 mmol/L (98-107); Glucose 99 mg/dL (74-99); Lipase 110 U/L (23-300); Non-African American GFR(CKD) >90 (>60 ml/min/1.73 sqM); Potassium 4.3 mmol/L (3.5-5.1); Sodium 136 mmol/L (137-145); Total Bilirubin 0.6 mg/dL (0.2-1.3); Total Protein 7.3 g/dL (6.3-8.2)
--- NOTE | 2020-09-08 22:25 | CT ---
EXAMINATION TYPE: CT abdomen pelvis w con DATE OF EXAM: 09/08/2020 COMPARISON: 02/29/2020 HISTORY: abd pain CT DLP: 2631 mGycm Automated exposure control for dose reduction was used. CONTRAST: Performed with IV Contrast, patient injected with 100 mL of Isovue 300. Images obtained from the diaphragm to the floor the pelvis with IV contrast. The lung bases are clear. There is no pleural effusion. Heart size is normal. Liver spleen pancreas a ppear intact. The bile ducts are not dilated. Gallbladder appears absent. There are clips from gastri c bariatric surgery. There is no adrenal mass. Kidneys show satisfactory contrast opacification. There is no hydronephrosi s. Ureters are not dilated. There is no retroperitoneal adenopathy. Appendix is medial and appears no rmal. Bladder distends smoothly. There is no inguinal hernia. There is no evidence of a pelvic mass. There is hysterectomy. Lumbar vertebra have normal alignment. There is vacuum disc at L4-5 with disc space narrowing. There is no compression fracture. Posterior elements are intact. The bony pelvis is intact. Hip joints are intact. There is no mesenteric edema. There is no ascites or free air. There is no bowel obstruction. IMPRESSION: Previous bariatric surgery. No acute abnormality of the abdomen pelvis. No adverse change compared to old exam. There is clearing of the small amount of pelvic fluid compared to old exam. Normal appendi x.
[2020-09-08] MEDS ORDERED: ACET/COD 300 MG/30 MG STARTER PACK 6 TAB BTL PO STA (22:54)
[2020-09-08 23:32] VITALS: BP 139/92; RESP 18; TEMP 98.9
== END 2020-09-08 23:39 | disposition home or self-care (01) ==
LOC: EC 17:58
DX: K92.1 Melena (principal); E11.9 Type 2 diabetes mellitus without complications; E78.5 Hyperlipidemia, unspecified; F32.9 Major depressive disorder, single episode, unspecified; Z88.0 Allergy status to penicillin
CPT/HCPCS: 36415; 80053; 83690; 84484; 85025; 85730; 82272; 74177; 99285; 96374; 96375; 96361; J2405; J1170; Q9967

== ENCOUNTER 2020-09-15 09:43 | Emergency (ER) | payer OTHER ==
[2020-09-15 10:11] VITALS: BP 169/96; PULSE 87; RESP 16; TEMP 98
[2020-09-15 10:48] LABS: Anisocytosis Slight; Basophils % (A) 0 %; Eosinophils # (A) 0.1 k/uL (0-0.7); Eosinophils % (A) 3 %; HCT 35.1 % (34.0-46.0); HGB 12.2 gm/dL (11.4-16.0); Lymphocytes % (A) 20 %; MCH 30.6 pg (25.0-35.0); MCHC 34.7 g/dL (31.0-37.0); MCV 88.2 fL (80.0-100.0); Mean Platelet Volume 6.9; Monocytes # (A) 0.2 k/uL (0-1.0); Monocytes % (A) 5 %; Neutrophils # (A) 3.6 k/uL (1.3-7.7); Neutrophils % (A) 72 %; Platelet Count 199 k/uL (150-450); RBC 3.98 m/uL (3.80-5.40); RDW 16.1 % (11.5-15.5)
[2020-09-15 10:56] LABS: ALT 32 U/L (4-34); African American GFR (CKD) >90 (>60 ml/min/1.73 sqM); Albumin 4.2 g/dL (3.5-5.0); Amylase 45 U/L (30-110); Anion Gap 9 mmol/L; Blood Urea Nitrogen 11 mg/dL (7-17); Calcium 8.9 mg/dL (8.4-10.2); Carbon Dioxide 20 mmol/L (22-30); Chloride 108 mmol/L (98-107); Glucose 126 mg/dL (74-99); Lipase 180 U/L (23-300); Non-African American GFR(CKD) >90 (>60 ml/min/1.73 sqM); Sodium 137 mmol/L (137-145); Total Bilirubin 0.6 mg/dL (0.2-1.3)
[2020-09-15 10:58] LABS: Appearance,Urine Cloudy (Clear); Bacteria,Urine Occasional /hpf; Bilirubin,Urine Negative (Negative); Blood,Urine Moderate (Negative); Color,Urine Yellow; Glucose,Urine (UA) Negative (Negative); Ketones,Urine Negative (Negative); Leukocyte Esterase,Urine Negative (Negative); Mucus,Urine Rare /hpf; Nitrite,Urine Negative (Negative); Protein,Urine Negative (Negative); RBC,Urine 9 /hpf (0-5); Specific Gravity,Urine 1.018 (1.001-1.035); Squamous Epithelial Cell,Urine 4 /hpf (0-4); Urobilinogen,Urine <2.0 mg/dL (<2.0); WBC,Urine 2 /hpf (0-5)
[2020-09-15 11:02] LABS: AST 46 U/L (14-36); Alkaline Phosphatase 81 U/L (38-126); Potassium 4.8 mmol/L (3.5-5.1)
[2020-09-15] MEDS ORDERED: MORPHINE SULFATE 4 MG/ML SYRINGE IVP STA (11:15)
[2020-09-15] MEDS ORDERED: ONDANSETRON 4 MG/2 ML VIAL IVP STA (11:15)
[2020-09-15] MEDS ORDERED: SODIUM CHLORIDE 0.9% 1,000 ML IV STA (11:15)
--- NOTE | 2020-09-15 11:51 | CT ---
EXAMINATION TYPE: CT abdomen pelvis w con DATE OF EXAM: 09/15/2020 COMPARISON: 09/08/2020 INDICATION: LLQ pain DLP: 2218 mGycm, Automated exposure control for dose reduction was used. CONTRAST: 100 mL of Isovue 300. Study performed without Oral Contrast TECHNIQUE: Axial images were obtained from above the diaphragm to the pubic rami in the axial plane a t 5 mm thick sections. Reconstructed images are reviewed on the computer in the coronal plane. FINDINGS: Limited CT sections are obtained the lung bases. The lung bases are clear. CT ABDOMEN: Liver: Enlarged. Mild fatty infiltration is present. Spleen: Normal Pancreas: Normal Adrenal glands: The adrenal glands are normal. Gallbladder: Normal Kidneys: No masses are evident. No hydronephrosis is present. No cysts are present. Delayed images were obtained through the kidneys, which remain unremarkable. Aorta: Normal Inferior vena cava: Normal. CT PELVIS: Gastric sleeve is evident. Left upper quadrant small bowel surgery is evident. This study is without oral contrast limiting bowel evaluation. Very few diverticula are present. Appendix: Normal as visualized. Urinary bladder: Normal. Genitourinary structures: Uterus is not clearly identified. The adnexa appear normal. No discrete ova kristan are identified. No free fluid is within the pelvis. Osseous structures: No suspicious lytic or sclerotic lesions. IMPRESSIONS: 1. Hepatomegaly with mild fatty infiltration of liver. 2. Postsurgical changes of the stomach and small bowel left upper quadrant. 3. No suspicious diverticulitis or significant diverticulosis to account for left lower quadrant pain .
[2020-09-15] MEDS ORDERED: HYDROmorphone 0.5 MG/0.5 ML SYRINGE IVP STA (12:04)
[2020-09-15] MEDS ORDERED: HYDROmorphone 1 MG/ML 1 ML SYRINGE IVP STA (12:09)
--- NOTE | 2020-09-15 13:10 | ED ---
General Adult HPI - General Source: patient Mode of arrival: ambulatory Limitations: no limitations <Mack Macdonald - Last Filed: 09/15/20 13:05> <Mague Morris - Last Filed: 09/17/20 12:13> - General Chief complaint: Abdominal Pain Stated complaint: GI problems Time Seen by Provider: 09/15/20 10:21 - History of Present Illness Initial comments: 40-year-old female with a past medical history diabetes mellitus hyperlipidemia presents to the emergency room for a chief complaint of abdominal pain. Patient reports that she has had abdominal pain on and off for the past few weeks. Patient states that yesterday she started to have bloody diarrhea. She denies any fevers. Denies nausea vomiting. Patient does have an appointment with GI today. Patient denies lightheadedness.Patient has no other complaints at this time including shortness of breath, chest pain, nausea or vomiting, headache, or visual changes. (Mack Macdonald) - Related Data Home Medications Medication Instructions Recorded Confirmed Sertraline HCl [Zoloft] 50 mg PO HS 08/01/20 08/01/20 Sertraline HCl [Zoloft] 100 mg PO HS 08/01/20 08/01/20 Previous Rx's Medication Instructions Recorded Clindamycin [Cleocin] 450 mg PO Q8H 7 Days #63 capsule 08/01/20 Allergies Allergy/AdvReac Type Severity Reaction Status Date / Time amoxicillin AdvReac flu like Verified 09/08/20 18:42 symptoms codeine AdvReac Nausea Verified 09/08/20 18:42 ketorolac [From Toradol] AdvReac Unknown Verified 09/08/20 18:42 latex AdvReac pain and Verified 09/08/20 18:42 itching metformin AdvReac DIARRHEA Verified 09/08/20 18:42 AND FLU LIKE SYMPTOMS Penicillins AdvReac flu like Verified 09/08/20 18:42 symptoms Sulfa (Sulfonamide AdvReac flu like Verified 09/08/20 18:42 Antibiotics) symptoms Review of Systems ROS Other: All systems not noted in ROS Statement are negative. <Mack Macdonald - Last Filed: 09/15/20 13:05> ROS Other: All systems not noted in ROS Statement are negative. <Mague Morris - Last Filed: 09/17/20 12:13> ROS Statement: Those systems with pertinent positive or pertinent negative responses have been documented in the HPI. Past Medical History Past Medical History: Diabetes Mellitus, Hyperlipidemia, Liver Disease Additional Past Medical History / Comment(s): Fatty liver,hx difficulty swallowing,. Left face numbness 01/16/16, red raised rash on arms and legs-went to ER, kidney stones, lower back pain(bulging L4-L5), recent admission for diverticulitis History of Any Multi-Drug Resistant Organisms: None Reported Past Surgical History: Bariatric Surgery, Section, Cholecystectomy, Hysterectomy, Tonsillectomy, Uterine Ablation Additional Past Surgical History / Comment(s): exploratory lower abdominal laparoscopy.10-11-15 lap brenda en y,. pain procedures, EGD, cholecystectomy 02/28/19, Partial hysterectomy Past Anesthesia/Blood Transfusion Reactions: No Reported Reaction Additional Past Anesthesia/Blood Transfusion Reaction / Comment(s): claustrophobia Past Psychological History: Depression Smoking Status: Never smoker Past Alcohol Use History: None Reported Past Drug Use History: None Reported - Past Family History Mother Family Medical History: Congestive Heart Failure (CHF), Fibromyalgia Additional Family Medical History / Comment(s): at 43 from heart failure <Mack Macdonald P - Last Filed: 09/15/20 13:05> General Exam Limitations: no limitations General appearance: alert, in no apparent distress Head exam: Present: atraumatic, normocephalic, normal inspection Eye exam: Present: normal appearance, PERRL, EOMI. Absent: scleral icterus, conjunctival injection, periorbital swelling ENT exam: Present: normal exam, mucous membranes moist Neck exam: Present: normal inspection, full ROM. Absent: tenderness, meningismus, lymphadenopathy Respiratory exam: Present: normal lung sounds bilaterally. Absent: respiratory distress, wheezes, rales, rhonchi, stridor Cardiovascular Exam: Present: regular rate, normal rhythm, normal heart sounds. Absent: systolic murmur, diastolic murmur, rubs, gallop, clicks GI/Abdominal exam: Present: soft, tenderness (LLQ tenderness without guarding or rebound. no RLQ tenderness or upper abdominal tenderness.), normal bowel sounds. Absent: distended, guarding, rebound, rigid Neurological exam: Present: alert <Mack Macdonald P - Last Filed: 09/15/20 13:05> Course Vital Signs 09/15/20 10:09 Temperature 98.0 F Pulse Rate 87 Respiratory 16 Rate Blood Pressure 169/96 O2 Sat by Pulse 95 Oximetry Medical Decision Making - Lab Data Result diagrams: 09/15/20 10:33 09/15/20 10:33 <Mack Macdonald - Last Filed: 09/15/20 13:05> - Lab Data Result diagrams: 09/15/20 10:33 09/15/20 10:33 <Mague Morris - Last Filed: 09/17/20 12:13> - Medical Decision Making Vitals are stable. Patient is well-appearing. She does have left lower quadrant tenderness. No guarding or rebound. CBC CMP is unremarkable. Hemoglobin is stable when compared to previous visit. Urinalysis does not show any evidence of infection. CT abdomen and pelvis shows hepatomegaly with mild fatty infiltration. No suspicious diverticulitis or significant diverticulosis to account for left lower quadrant pain. At this time patient feels much more comfortable after pain medication. She has an appointment in less than an hour with GI. Patient will be discharged home to follow up as she is stable at this time. She will return here for any worsening symptoms. (Mack Macdonald) I was available for consultation in the emergency department. The history and physical exam were done by the midlevel provider. I was consulted for this patients care. I reviewed the case with the midlevel provider and based on their presentation of the patient, I agree with the assessment, medical decision making and plan of care as documented. Chart was dictated using [employer] dictation software. Attempts were made to correct any dictation errors however some typographical errors may persist. Patient was seen during a national state of emergency due to the Covid-19 pandemic. (Mague Morris) - Lab Data Lab Results 09/15/20 09/15/20 09/15/20 Range/Units 10:33 10:33 10:33 WBC 5.0 (3.8-10.6) k/uL RBC 3.98 (3.80-5.40) m/uL Hgb 12.2 (11.4-16.0) gm/dL Hct 35.1 (34.0-46.0) % MCV 88.2 (80.0-100.0) fL MCH 30.6 (25.0-35.0) pg MCHC 34.7 (31.0-37.0) g/dL RDW 16.1 H (11.5-15.5) % Plt Count 199 (150-450) k/uL MPV 6.9 Neutrophils % 72 % Lymphocytes % 20 % Monocytes % 5 % Eosinophils % 3 % Basophils % 0 % Neutrophils # 3.6 (1.3-7.7) k/uL Lymphocytes # 1.0 (1.0-4.8) k/uL Monocytes # 0.2 (0-1.0) k/uL Eosinophils # 0.1 (0-0.7) k/uL Basophils # 0.0 (0-0.2) k/uL Anisocytosis Slight Sodium (137-145) mmol/L Potassium (3.5-5.1) mmol/L Chloride (98-107) mmol/L Carbon Dioxide (22-30) mmol/L Anion Gap mmol/L BUN (7-17) mg/dL Creatinine (0.52-1.04) mg/dL Est GFR (CKD-EPI)AfAm (>60 ml/min/1.73 sqM) Est GFR (CKD-EPI)NonAf (>60 ml/min/1.73 sqM) Glucose (74-99) mg/dL Calcium (8.4-10.2) mg/dL Total Bilirubin (0.2-1.3) mg/dL AST (14-36) U/L ALT (4-34) U/L Alkaline Phosphatase (38-126) U/L Total Protein (6.3-8.2) g/dL Albumin (3.5-5.0) g/dL Amylase (30-110) U/L Lipase (23-300) U/L Urine Color Yellow Urine Appearance Cloudy H (Clear) Urine pH 6.0 (5.0-8.0) Ur Specific [place] 1.018 (1.001-1.035) Urine Protein Negative (Negative) Urine Glucose (UA) Negative (Negative) Urine Ketones Negative (Negative) Urine Blood Moderate H (Negative) Urine Nitrite Negative (Negative) Urine Bilirubin Negative (Negative) Urine Urobilinogen <2.0 (<2.0) mg/dL Ur Leukocyte Esterase Negative (Negative) Urine RBC 9 H (0-5) /hpf Urine WBC 2 (0-5) /hpf Ur Squamous Epith Cells 4 (0-4) /hpf Urine Bacteria Occasional H (None) /hpf Urine Mucus Rare H (None) /hpf Urine HCG, Qual Not Detected (Not Detectd) 09/15/20 Range/Units 10:33 WBC (3.8-10.6) k/uL RBC (3.80-5.40) m/uL Hgb (11.4-16.0) gm/dL Hct (34.0-46.0) % MCV (80.0-100.0) fL MCH (25.0-35.0) pg MCHC (31.0-37.0) g/dL RDW (11.5-15.5) % Plt Count (150-450) k/uL MPV Neutrophils % % Lymphocytes % % Monocytes % % Eosinophils % % Basophils % % Neutrophils # (1.3-7.7) k/uL Lymphocytes # (1.0-4.8) k/uL Monocytes # (0-1.0) k/uL Eosinophils # (0-0.7) k/uL Basophils # (0-0.2) k/uL Anisocytosis Sodium 137 (137-145) mmol/L Potassium 4.8 (3.5-5.1) mmol/L Chloride 108 H (98-107) mmol/L Carbon Dioxide 20 L (22-30) mmol/L Anion Gap 9 mmol/L BUN 11 (7-17) mg/dL Creatinine 0.55 (0.52-1.04) mg/dL Est GFR (CKD-EPI)AfAm >90 (>60 ml/min/1.73 sqM) Est GFR (CKD-EPI)NonAf >90 (>60 ml/min/1.73 sqM) Glucose 126 H (74-99) mg/dL Calcium 8.9 (8.4-10.2) mg/dL Total Bilirubin 0.6 (0.2-1.3) mg/dL AST 46 H (14-36) U/L ALT 32 (4-34) U/L Alkaline Phosphatase 81 (38-126) U/L Total Protein 7.0 (6.3-8.2) g/dL Albumin 4.2 (3.5-5.0) g/dL Amylase 45 (30-110) U/L Lipase 180 (23-300) U/L Urine Color Urine Appearance (Clear) Urine pH (5.0-8.0) Ur Specific [place] (1.001-1.035) Urine Protein (Negative) Urine Glucose (UA) (Negative) Urine Ketones (Negative) Urine Blood (Negative) Urine Nitrite (Negative) Urine Bilirubin (Negative) Urine Urobilinogen (<2.0) mg/dL Ur Leukocyte Esterase (Negative) Urine RBC (0-5) /hpf Urine WBC (0-5) /hpf Ur Squamous Epith Cells (0-4) /hpf Urine Bacteria (None) /hpf Urine Mucus (None) /hpf Urine HCG, Qual (Not Detectd) Disposition Is patient prescribed a controlled substance at d/c from ED?: No Time of Disposition: 13:08 <Mack Macdonald P - Last Filed: 09/15/20 13:05> <Mague Morris A - Last Filed: 09/17/20 12:13> Clinical Impression: Abdominal pain, Hematochezia, Diarrhea Disposition: HOME SELF-CARE Condition: Good Instructions (If sedation given, give patient instructions): Gastrointestinal Bleeding (ED), Abdominal Pain (ED) Additional Instructions: Please follow up with GI at your appointment this afternoon. Return to the emergency room for any worsening symptoms. Referrals: Aurelio Miller Jr, DO [Primary Care Provider] - 1-2 days Omar Sylvester MD [STAFF PHYSICIAN] - 1-2 days
== END 2020-09-15 13:31 | disposition home or self-care (01) ==
LOC: EC 09:43
DX: K92.1 Melena (principal); E11.9 Type 2 diabetes mellitus without complications; E78.5 Hyperlipidemia, unspecified; F32.9 Major depressive disorder, single episode, unspecified; Z88.0 Allergy status to penicillin
CPT/HCPCS: 36415; 80053; 82150; 83690; 85025; 81001; 81025; 74177; 99284; 96374; 96375; J2270; J2405; J1170; Q9967

== ENCOUNTER 2020-09-21 07:58 | Day surgery (SDC) | payer OTHER ==
[2020-09-20 09:55] VITALS: BMI 42.0
[~2020-09-21 07:58] MED LIST changes: -LACTATED RINGERS 1,000 ML IV SCH; +LIDOCAINE 1% (10MG/ML) FOR IV START INTRADERMA PRN; -MIDAZOLAM 2 MG/2 ML VIAL ONE; -ONDANSETRON 4 MG/2 ML VIAL IVP ONE; -PROPOFOL 10 MG/ML 20 ML VIAL IV ONE
[2020-09-21 08:16] VITALS: RESP 16; TEMP 97.4
[2020-09-21] MEDS ORDERED: ONDANSETRON 4 MG/2 ML VIAL ONE (08:18)
[2020-09-21] MEDS: LACTATED RINGERS 1,000 ML IV SCH ×2 (08:28→08:43)
[2020-09-21] MEDS ORDERED: LIDOCAINE 1% INJ 10MG/ML (20 ML MDV) ONE (08:44)
[2020-09-21] MEDS ORDERED: PROPOFOL 10 MG/ML 20 ML VIAL IV ONE (08:44)
--- NOTE | 2020-09-21 09:18 | P.PCN ---
Date of Procedure: 09/21/20 Description of Procedure: BRIEF HISTORY: Patient is a 32-year-old female presenting for outpatient colonoscopy for evaluation of diarrhea. Patient had reported 10-20 bowel movements daily. She reported associated urgency and blood per rectum. Previously she underwent gastric bypass. She also reports left lower quadrant abdominal pain. PROCEDURE PERFORMED: Colonoscopy with biopsy. PREOPERATIVE DIAGNOSIS: Diarrhea, left lower quadrant abdominal pain. ESTIMATED BLOOD LOSS: Minimal. IV sedation per Anesthesia. PROCEDURE: After informed consent was obtained, the patient, was brought into the endoscopy unit. IV sedation was administered by Anesthesia under continuous monitoring. Digital rectal examination was normal. Initially the Olympus CF-190 flexible video colonoscope was then inserted in the rectum, gradually advanced into the cecum without any difficulty. Careful examination was performed as the scope was gradually being withdrawn. Ileocecal valve and the appendiceal orifice were visualized and appeared normal. Prep was excellent. Mucosa of the cecum, ascending colon, transverse colon, descending colon, sigmoid colon, and rectum appeared normal with random biopsies taken of the right and left colon in the setting of diarrhea and altered bowel function. The terminal ileum was also intubated and appeared normal. Retroflexion was performed in the rectum and no lesions were seen, low-grade internal hemorrhoids were noted. The patient tolerated the procedure well. IMPRESSION: Normal-appearing colon from rectum to cecum and normal appearing terminal ileum. Internal hemorrhoids. Random biopsies of the right and left colon. RECOMMENDATIONS: Findings of this examination were discussed with the patient and her family. Okay to resume diet. Okay to resume medications. Await pathology from biopsies. Follow up in the GI clinic as scheduled.
[2020-09-21 09:33] VITALS: BP 92/50; PULSE 66
== END 2020-09-21 09:48 | disposition home or self-care (01) ==
LOC: ORWHC2ENDO 07:58
PROVIDERS: ATTEND Internal Medicine
DX: R19.7 Diarrhea, unspecified (principal); R10.32 Left lower quadrant pain; K64.8 Other hemorrhoids; F32.9 Major depressive disorder, single episode, unspecified; E66.01 Morbid (severe) obesity due to excess calories; Z79.899 Other long term (current) drug therapy; Z88.5 Allergy status to narcotic agent; Z88.0 Allergy status to penicillin; Z88.2 Allergy status to sulfonamides; Z98.84 Bariatric surgery status
CPT/HCPCS: 88305; 45380; J2405; J2001; J2704

== ENCOUNTER → 2021-11-21 | Outpatient (CLI) | payer OTHER ==
[2021-11-21 14:30] LABS: Basophils # (A) 0.01 X 10*3/uL (0.00-0.10); Basophils % (A) 0.2 %; Eosinophils # (A) 0.08 X 10*3/uL (0.04-0.35); Eosinophils % (A) 1.8 %; HCT 40.4 % (37.2-46.3); HGB 12.8 g/dL (12.0-15.0); Immature Grans, Automated 0.5 %; Lymphocytes # (A) 1.76 X 10*3/uL (0.90-5.00); Lymphocytes % (A) 39.6 %; MCH 27.7 pg (27.0-32.0); MCHC 31.7 g/dL (32.0-37.0); MCV 87.4 fL (80.0-97.0); Mean Platelet Volume 9.4 fL (9.5-12.2); NRBC Per 100 WBC 0 /100 WBCS (0.0-0.0); Neutrophils # (A) 2.17 X 10*3/uL (1.80-7.70); Neutrophils % (A) 48.9 %; Platelet Count 232 X 10*3/uL (140-440); RBC 4.62 X 10*6/uL (4.10-5.20); RDW 13.8 % (11.5-14.5); Reticulocyte % 1.18 % (0.10-1.80); WBC 4.44 X 10*3/uL (4.50-10.00)
[2021-11-21 14:58] LABS: % Iron Saturation 15.58 (12.00-45.00); ALT 37 U/L (8-44); AST 32 U/L (13-35); African American GFR (CKD) 136.3 (60.0-200.0); Albumin 4.4 g/dL (3.8-4.9); Albumin/Globulin Ratio 1.93 (1.60-3.17); Alkaline Phosphatase 80 U/L (41-126); BUN/Creat Ratio 14.84 Ratio (12.00-20.00); Blood Urea Nitrogen 8.3 mg/dL (9.0-27.0); Carbon Dioxide 20.6 mmol/L (20.0-27.5); Chloride 105 mmol/L (96-109); Ferritin 88.1 ng/mL (10.0-291.0); Globulin 2.3 g/dL (1.6-3.3); Glucose 101 mg/dL (70-110); Iron 60 ug/dL (50-170); Non-African American GFR(CKD) 117.6 (60.0-200.0); Potassium 4.6 mmol/L (3.5-5.5); Sodium 141 mmol/L (135-145); Total Iron Binding Capacity 385 ug/dL (228-460); Total Protein 6.7 g/dL (6.2-8.2)
[2021-11-21 15:57] LABS: Vitamin B12 <150.0 pg/mL (200.0-944.0)
== END | disposition home or self-care (01) ==
LOC: LABWHC1 08:27
PROVIDERS: ATTEND Family Medicine
DX: R58 Hemorrhage, not elsewhere classified (principal)
CPT/HCPCS: 36415; 80053; 82607; 82728; 82746; 83540; 83550; 85025; 85045

== ENCOUNTER → 2022-04-05 | Outpatient (CLI) | payer OTHER ==
--- NOTE | 2022-04-06 09:31 | MM ---
Reason for Exam: Screening (asymptomatic). Last mammogram was performed 2 year(s) and 11 month(s) ago. Patient History: Menarche at age 11. First Full-Term at age 25. Hysterectomy at age 33. Patient has history of breast feeding. Patient used Hormonal Contraceptives for 1 year. Paternal grandmother had breast cancer, age 60. Maternal grandmother had breast cancer, age 60. Risk Values: Ute 5 year model risk: 0.5%. NCI Lifetime model risk: 9.9%. Prior Study Comparison: 04/16/2019 Bilateral Screening Mammogram, [facility]. 04/16/2019 Right Diagnostic Mammogram, [facility]. 04/16/2019 Right Diagnostic Ultrasound, [facility]. 10/22/2019 Right Diagnostic Mammogram, [facility]. 10/22/2019 Right Diagnostic Ultrasound, [facility]. Tissue Density: There are scattered fibroglandular densities. Findings: Analyzed By CAD. There is no suspicious group of microcalcifications or new suspicious mass in either breast. No significant change from prior exams. Overall Assessment: Negative, BI-RAD 1 Management: Screening Mammogram of both breasts in 1 year. A clinical breast exam by your physician is recommended on an annual basis and results should be correlated with mammographic findings. Electronically signed and approved by: John Fontana D.O.
== END | disposition home or self-care (01) ==
LOC: RADMAMWWP 16:50
PROVIDERS: ATTEND Family Medicine
DX: Z12.39 Encounter for other screening for malignant neoplasm of breast (principal)
CPT/HCPCS: 77067

== ENCOUNTER → 2022-05-01 | Outpatient (CLI) | payer OTHER ==
[2022-05-01 18:57] LABS: Basophils # (A) 0.02 X 10*3/uL (0.00-0.10); Basophils % (A) 0.4 %; Eosinophils # (A) 0.06 X 10*3/uL (0.04-0.35); Eosinophils % (A) 1.2 %; HCT 37.4 % (37.2-46.3); Immature Grans, Automated 0.2 %; Lymphocytes # (A) 1.41 X 10*3/uL (0.90-5.00); MCH 30.5 pg (27.0-32.0); MCHC 32.1 g/dL (32.0-37.0); MCV 95.2 fL (80.0-97.0); Mean Platelet Volume 9.6 fL (9.5-12.2); Monocytes # (A) 0.39 X 10*3/uL (0.20-1.00); NRBC Per 100 WBC 0 /100 WBCS (0.0-0.0); Neutrophils # (A) 2.98 X 10*3/uL (1.80-7.70); Neutrophils % (A) 61.2 %; Platelet Count 268 X 10*3/uL (140-440); RBC 3.93 X 10*6/uL (4.10-5.20); RDW 13.9 % (11.5-14.5); WBC 4.87 X 10*3/uL (4.50-10.00)
[2022-05-01 19:00] LABS: ALT 23 U/L (8-44); AST 29 U/L (13-35); African American GFR (CKD) 132.1 (60.0-200.0); Albumin 4.1 g/dL (3.8-4.9); Albumin/Globulin Ratio 1.64 (1.60-3.17); Alkaline Phosphatase 68 U/L (41-126); BUN/Creat Ratio 15.83 Ratio (12.00-20.00); Blood Urea Nitrogen 9.5 mg/dL (9.0-27.0); Calcium 8.8 mg/dL (8.7-10.3); Carbon Dioxide 20.5 mmol/L (20.0-27.5); Chloride 104 mmol/L (96-109); Chol/HDL Ratio 2.42 Ratio; Globulin 2.5 g/dL (1.6-3.3); Glucose 89 mg/dL (70-110); LDL Cholesterol,Calculated 70.5 mg/dL (0.0-131.0); Potassium 4.5 mmol/L (3.5-5.5); Sodium 142 mmol/L (135-145); Total Protein 6.6 g/dL (6.2-8.2)
== END | disposition home or self-care (01) ==
LOC: LABWHC1 11:04
PROVIDERS: ATTEND Family Medicine
DX: E11.9 Type 2 diabetes mellitus without complications (principal)
CPT/HCPCS: 36415; 80053; 80061; 83036; 84439; 84443; 85025

== ENCOUNTER 2023-01-05 00:28 | Emergency (ER) | payer OTHER ==
[2023-01-05 00:52] VITALS: BP 95/76; PULSE 120; RESP 16; TEMP 98.5
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
[2023-01-05 02:32] LABS: Amphetamine Screen,Urine Not Detected (NotDetected); Barbiturate Screen,Urine Not Detected (NotDetected); Benzodiazepines Screen,Urine Not Detected (NotDetected); Cocaine Screen,Urine Not Detected (NotDetected); Methadone Screen, Urine Not Detected (NotDetected); Opiate Screen,Urine Not Detected (NotDetected); Oxycodone Screen, Urine Not Detected (NotDetected); Phencyclidine Screen,Urine Not Detected (NotDetected); Tricyclic Antidepressant,Urine Not Detected (NotDetected); Urn Cannabinoid Scrn Not Detected (NotDetected)
== END 2023-01-05 01:53 | disposition home or self-care (01) ==
LOC: EC 00:28
DX: Z02.83 Encounter for blood-alcohol and blood-drug test (principal); E11.9 Type 2 diabetes mellitus without complications; F41.9 Anxiety disorder, unspecified; F32.A Depression, unspecified; Z79.899 Other long term (current) drug therapy; Z88.0 Allergy status to penicillin; Z88.2 Allergy status to sulfonamides; Z88.5 Allergy status to narcotic agent; Z88.6 Allergy status to analgesic agent; Z88.8 Allergy status to other drugs, medicaments and biological substances; Z91.040 Latex allergy status; Z86.16 Personal history of COVID-19
CPT/HCPCS: 80306; 99282

== ENCOUNTER → 2023-08-15 | Outpatient (CLI) | payer BC ==
--- NOTE | 2023-08-16 19:23 | MM ---
Reason for Exam: Screening (asymptomatic). Last mammogram was performed 1 year(s) and 5 month(s) ago. Patient History: Menarche at age 11. First Full-Term at age 25. Hysterectomy at age 33. Patient has history of breast feeding. Patient used Hormonal Contraceptives for 1 year. Paternal grandmother had breast cancer, age 60. Maternal grandmother had breast cancer, age 60. Risk Values: Ute 5 year model risk: 0.6%. NCI Lifetime model risk: 9.8%. Prior Study Comparison: 04/16/2019 Right Diagnostic Mammogram, [facility]. 10/22/2019 Right Diagnostic Mammogram, [facility]. 04/05/2022 Bilateral MG screening mammo w CAD, [facility]. Tissue Density: There are scattered areas of fibroglandular density. Findings: Analyzed By CAD. Unchanged upper outer quadrant global asymmetry on the right. There is no suspicious group of microcalcifications or new suspicious mass in either breast. Overall Assessment: Benign, BI-RAD 2 Management: Screening Mammogram of both breasts in 1 year. . Patient should continue monthly self-breast exams. A clinical breast exam by your physician is recommended on an annual basis. This exam should not preclude additional follow-up of suspicious palpable abnormalities. Note on Ute scores and lifetime risk: 1. A Ute score greater than 3% is considered moderate risk. If this is the case, consider specialist referral to assess eligibility for a risk reducing agent. 2. If overall lifetime risk for the development of breast cancer is 20% or higher, the patient may qualify for future screening with alternating mammogram and breast MRI. Electronically signed and approved by: Vaibhav Morelos M.D. Radiologist
== END | disposition home or self-care (01) ==
LOC: RADMAMWWP 12:40
PROVIDERS: ATTEND Family Medicine
DX: Z12.31 Encounter for screening mammogram for malignant neoplasm of breast (principal); Z80.3 Family history of malignant neoplasm of breast
CPT/HCPCS: 77063; 77067

== ENCOUNTER → 2023-09-12 | Outpatient (CLI) | payer BC, MEDICAID ==
[2023-09-13 14:20] LABS: Almond IgE <0.10 kU/L (<0.10); Almond IgE Class CLASS 0; Brazil Nut IgE <0.10 kU/L (<0.10); Brazil Nut IgE Class CLASS 0; Cashew IgE <0.10 kU/L (<0.10); Cashew IgE Class CLASS 0; Crab IgE <0.10 kU/L (<0.10); Crab IgE Class CLASS 0; Hazelnut IgE <0.10 kU/L (<0.10); Hazelnut IgE Class CLASS 0; Mussel IgE <0.10 kU/L (<0.10); Mussel IgE Class CLASS 0; Pecan IgE <0.10 kU/L (<0.10); Pecan IgE Class CLASS 0; Pistachio IgE Class CLASS 0; Tuna IgE <0.10 kU/L (<0.10); Tuna IgE Class CLASS 0
[2023-09-13 14:21] LABS: Egg Yolk IgE Class CLASS 0; Lobster IgE <0.10 kU/L (<0.10); Lobster IgE Class CLASS 0; Salmon IgE <0.10 kU/L (<0.10); Salmon IgE Class CLASS 0
[2023-09-13 17:17] LABS: Clam IgE <0.10 kU/L; Codfish IgE <0.10 kU/L; Egg White IgE <0.10 kU/L; Peanut IgE <0.10 kU/L; Scallop IgE <0.10 kU/L; Shrimp IgE <0.10 kU/L; Soybean IgE <0.10 kU/L; Walnut IgE (Food) <0.10 kU/L
== END | disposition home or self-care (01) ==
LOC: LABWHC1 12:06
PROVIDERS: ATTEND Internal Medicine
DX: R19.7 Diarrhea, unspecified (principal)
CPT/HCPCS: 36415; 86003

== ENCOUNTER → 2024-01-01 | Outpatient (CLI) | payer BC, MEDICAID ==
[2024-01-02 01:58] LABS: Appearance,Urine Turbid (Clear); Bilirubin,Urine Negative (Negative); Blood,Urine Small (Negative); Color,Urine Yellow (Yellow); Ketones,Urine Negative (Negative); Nitrite,Urine Negative (Negative); PH, Urine 5.5; Urobilinogen,Urine 0.2 E.U./DL
[2024-01-02 02:02] LABS: Bacteria,Urine Trace (None Seen)
== END | disposition home or self-care (01) ==
LOC: LABMAIN 16:45
PROVIDERS: ATTEND Physician Assistant
DX: R30.0 Dysuria (principal)
CPT/HCPCS: 81001

== ENCOUNTER → 2024-01-04 | Outpatient (CLI) | payer BC, MEDICAID ==
--- NOTE | 2024-01-04 10:32 | US ---
EXAMINATION TYPE: US kidneys/renal and bladder DATE OF EXAM: 01/04/2024 COMPARISON: NONE CLINICAL INDICATION: Female, 43 years old with history of R31.29 OTHER MICROSCOPIC [id number] OT HER MICROSCOPIC H; Patient states having hx of renal stones. Abn urine. EXAM MEASUREMENTS: Right Kidney: 10.3 x 4.5 x 4.3 cm Left Kidney: 10.7 x 4.9 x 4.3 cm Right Kidney: No hydronephrosis or masses seen Left Kidney: No hydronephrosis or masses seen Bladder: not well distended Bilateral Jets not seen There is no evidence for hydronephrosis at this point in time. Corticomedullary differentiation is ma intained bilaterally. No nephrolithiasis is seen. No masses are identified. The urinary bladder is not well distended which limits evaluation. Bilateral ureteral jets are not seen. The visualized por tion of the liver is echogenic. IMPRESSION: 1. No hydronephrosis or nephrolithiasis. 2. Hepatic steatosis.
== END | disposition home or self-care (01) ==
LOC: RADUSWWP 10:05
PROVIDERS: ATTEND Family Medicine
DX: K76.0 Fatty (change of) liver, not elsewhere classified (principal); R31.29 Other microscopic hematuria
CPT/HCPCS: 76770

== ENCOUNTER → 2024-03-21 | Outpatient (CLI) | payer MEDICAID ==
--- NOTE | 2024-03-21 15:35 | MR ---
EXAMINATION TYPE: MR lumbar spine wo con DATE OF EXAM: 03/21/2024 COMPARISON: CT abdomen pelvis 09/15/2020, lumbosacral spine radiographs 11/18/2018 HISTORY: Low back pain into rt lower extremity TECHNIQUE: Multiplanar, multisequence images of the lumbar spine were acquired without IV contrast. FINDINGS: The lumbar vertebral bodies do have preserved heights. No spondylolisthesis. Straightening of the normal lumbar lordosis. Multilevel disc desiccation is present of the lower lumbar spine. Inc idental L4 limbus vertebra. No abnormal STIR signal. The conus medullaris and the distal spinal cord do appear unremarkable with regards to their signal intensity and morphology. L1-L2: No significant disc pathology is identified. The spinal canal and neural foramen are patent. L2-L3: Minimal broad-based disc bulge without significant effacement of the anterior thecal sac. No neural foraminal stenosis. L3-L4: Minimal broad-based disc bulge without significant effacement of the anterior thecal sac. No neural foraminal stenosis. L4-L5: Central disc protrusion with annular fissure is identified with associated enlargement of the facet joints. The spinal canal is minimally narrowed. Mild right neuroforaminal stenosis. Left neural foramen is patent. L5-S1: Central disc protrusion without significant effacement of the anterior thecal sac. Bilateral f acet arthropathy with right greater than left. Resultant severe right neural foraminal stenosis. The left neural foramen is patent. Other significant findings: None. IMPRESSION: Multilevel disc degeneration with associated osteoarthritic changes. Central disc protrusions at L4-L 5 and L5-S1 without significant effacement of the anterior thecal sac. Marked right facet arthropathy at L5-S1 resulting in severe right neuroforaminal stenosis. [facility], , 03/21/2024 3:33 PM
== END | disposition home or self-care (01) ==
LOC: RADMRIMAIN 06:02
PROVIDERS: ATTEND Physical Medicine & Rehabilitation
DX: M54.51 Vertebrogenic low back pain
CPT/HCPCS: 72148

== ENCOUNTER → 2024-07-07 | Outpatient (CLI) | payer OTHER ==
--- NOTE | 2024-07-07 15:43 | CT ---
EXAMINATION TYPE: CT lumbar spine wo con DATE OF EXAM: 07/07/2024 3:29 PM COMPARISON: 09/10/2010 CLINICAL INDICATION: Female, 44 years old with history of M47.26, low back pain/ herniated disks, calos n TECHNIQUE: CT of the lumbar spine is performed on a spiral scan at 3 mm thick sections. Reconstructed images are performed in the coronal and sagittal planes. Contrast used: mL of , (none if empty) Oral contrast used: (none if empty) CT DLP: 664 mGycm, Automated exposure control for dose reduction was used. FINDINGS: T12-L1: This level is not included within the [id number]. L1-L2: No focal disc herniation or significant disc bulge is evident. No spinal canal stenosis or n eural foraminal stenosis is present L2-L3: Vacuum disc phenomenon is present. Minimal disc bulge is present with anterior thecal sac find ing. No AP spinal canal stenosis is present. Neural foramen are patent. L3-L4: Broad-based disc bulge has mild anterior thecal sac contact. No spinal canal stenosis or neura l foraminal stenosis is present L4-L5: There is narrowing of the disc height through this level. Mild disc bulge and anterior thecal sac flattening. No AP spinal canal stenosis is present. Severe left and moderate right foraminal narr owing is present. There is a limbus vertebra of L4. L5-S1: Vacuum disc phenomenon is present. There is loss of disc height at this level. No significant disc bulge is evident. No spinal canal stenosis is present. There is severe right foraminal stenosis. Vertebral alignment appears straightened. Limbus vertebra was present previously. Disc space narrowing with vacuum phenomenon is an interval fi nding. Foraminal narrowing appears progressive. MRI performed with additional evaluation would be of benefit. IMPRESSION: 1. Degenerative disc changes with vacuum phenomenon and mild residual disc bulging present at L2-3, L 4-5, L5-S1. 2. Foraminal stenosis greatest at L5-S1 on the right and L4-5 on the left. Additional milder narrowin g as discussed above. [facility], , 07/07/2024 3:41 PM
== END | disposition home or self-care (01) ==
LOC: RADCTMAIN 15:02
PROVIDERS: ATTEND Orthopaedic Surgery
DX: M48.07 Spinal stenosis, lumbosacral region (principal); M51.17 Intervertebral disc disorders with radiculopathy, lumbosacral region; M47.26 Other spondylosis with radiculopathy, lumbar region
CPT/HCPCS: 72131

== ENCOUNTER → 2024-09-15 | Outpatient (CLI) | payer BC, OTHER ==
[2024-09-15 12:31] VITALS: BP 153/98; PULSE 86; RESP 16
--- NOTE | 2024-09-15 13:33 | P.PAINPG ---
Objective - Vital Signs Vital signs: Vital Signs Temp Pulse 86 09/15/24 12:28 Resp 16 09/15/24 12:28 BP 153/98 09/15/24 12:28 Pulse Ox 96 09/15/24 12:28 FiO2 Intake & Output 09/14/24 09/15/24 09/15/24 18:59 06:59 18:59 Weight 106.594 kg PQRS Measure Charge Sheet Mode of Arrival: Ambulatory Comment: HISTORY OF PRESENT ILLNESS: A 44 yr old female w at side as a referral from Dr Dove presents today w severe and chronic LBP > 3 mo secondary to radiculopathy, spondylosis and facet arthropathy without myelopathy for evaluation. Pt states pain level is provoked at 8 /10 in intensity, constant, localized in the lumbar spine, predominantly axial, throbbing in character w occasional shooting pain towards the buttocks and LEs. Pain is provoked by lifting, PT x 4 wks in Jul 2024 which provoked pain. Pain is alleviated by physician guided home exercises 4-5 times weekly since Jul 2024, medications, manual massage, repositioning and rest . Oswestry axial pain score at 31. PMH: OA, NIDDM II, Fatty Liver Disease, Nephrolithiasis, MDD/ Anxiety PSH: Bariatric Surgery, C- Section, Cholecystectomy, EGD, Partial Hysterectomy, Exploratory Abd Laparoscopy (2015), Tonsillectomy, Uterine Ablation SH: Never smoker, Daily ETOH use, Hx of OD/ Suicide Attempt (2019) FH: Mo- CHF, age 45. All: See list Meds: See list incl Ibu REVIEW OF ORGAN SYSTEMS: CONSTITUTIONAL: No fevers or chills. No recent weight loss. NEUROLOGICAL: + numbness and tingling along the distal extremities. No seizure disorders or headaches. MUSCULOSKELETAL: + pain PSYCHIATRIC: Denies current depression or suicidal thoughts. Physical Examinations : Constitutional : Cooperative , not in acute distress . Neurologic : Cranial nerve II to XII intact. No focal neurological deficits. Psychiatric : alert & oriented x 3. Matching mood & appropriate affect. Judgment & insight intact. Musculoskeletal : Cervical Spine Motor strength in the deltoid and biceps: Normal right side. Normal Left side Motor strength biceps and the wrist extensors: Normal right side . Normal left side Motor strength in the triceps muscle: Normal right side. Normal left side Deep tendon reflexes: Normal at the biceps. Normal at Brachioradialis. Normal at triceps Vertebral body tenderness to deep palpation over Cervical facet loading test: positive bilaterally Spurling test: positive bilaterally Neck distraction test: positive bilaterally Osvaldo sign: positive bilaterally Lumbar spine Motor strength lower extremities ,thigh and legs 5/5 Right side , 5/5 Left side Deep tendon reflexes : Normal Knee Jerk. Normal Ankle Jerk Vertebral body tenderness over Castillo Test positive Lumbar facet Loading Test: positive Right / positive Left L4-L5/ L5-S1 Range of motion of the lumbar spine F lexion 30 degrees, extension 10 degrees Straight Leg Raise test: Left/ Right positive at degrees Josselin test: positive right / positive left. Severe tenderness over the Sacroiliac joint on the Right / Left sides Gaenslen test: positive bilaterally Seated flexion test: positive bilaterally. Sacral spine : Severe tenderness over the Sacroiliac joint: right side / left side Range of motion: Flexion of the lumbar spine <60 degrees Range of motion: Extension of the lumbar spine <20 degrees Gaenslen's Test positive Josselin test: positive right side / left side Thigh Thrust Test Sacral Thrust Test Imaging: CT non contrast lumbar spine from 07/07/24 reviewed Assessment/ Plan : L2-L3/ L4-S1 radiculopathy Recommendation of BL MBB L4-L5/ L5-S1 #1. Risks, benefits of procedure discussed and patient verbalized understanding. Admits to anti- coagulant use or medical history of diabetes. Protocol for discontinuation/ continuation of medications adri procedure discussed. Minimal anesthesia provided, if clinically indicated, consisting of Versed and Fentanyl. All questions answered. I have spent greater than 30 minutes on patient care today. Dr Ortiz was available by phone for the evaluation of this patient. The time was used to review the medical records including relevant urine studies and Prescription history (MAPs), review of the available imaging, evaluation and examination of the patient, coordination of care with the medical staff and if applicable referring physicians, as well as creation of the medical record - Pain Location Bilateral Lower Back Non-Pharmacological Interventions: Inactivity, Position/Reposition, Sitting Pharmacological Interventions: PRN Medication, Topical Medication PQRS Narrative: Smoking Status Never smoker Blood Pressure 153/98 Pain Intensity [Bilateral 8 Lower Back] Scale Used Numeric (1 - 10) Hx Alcohol Use (MH) No Home Medications: Ambulatory Orders No Known Home Medications 09/15/24 Controlled Substance Measures - Controlled Substance Measures Is patient prescribed a controlled substance at discharge?: No
== END ==
LOC: PNWHC3 12:12
PROVIDERS: ATTEND Specialist
DX: M47.27 Other spondylosis with radiculopathy, lumbosacral region (principal); Z88.1 Allergy status to other antibiotic agents; Z88.5 Allergy status to narcotic agent; Z88.8 Allergy status to other drugs, medicaments and biological substances; Z88.6 Allergy status to analgesic agent; Z88.0 Allergy status to penicillin; Z88.2 Allergy status to sulfonamides; Z91.040 Latex allergy status
CPT/HCPCS: 99211

== ENCOUNTER 2024-12-04 12:25 | Day surgery (SDC) | payer BC ==
[2024-12-04 12:56] VITALS: TEMP 98.2
[2024-12-04] MEDS: LACTATED RINGERS 1,000 ML IV SCH (13:00)
[2024-12-04] MEDS: LIDOCAINE 1% (10MG/ML) FOR IV START INTRADERMA STA (13:00)
[2024-12-04] MEDS: IV FLUID CONTINUATION 1,000 ML IV ONE ×2 (13:00→14:45)
[2024-12-04 13:14] LABS: Glucose,Whole Blood 130 mg/dL (70-110)
[2024-12-04] MEDS: ONDANSETRON 4 MG/2 ML VIAL IVP STA (13:17)
[2024-12-04] MEDS: fentaNYL (PF) 50 MCG/ML 2 ML AMP IVP PRN (13:23)
[2024-12-04] MEDS ORDERED: ROPIVACAINE 5 MG/ML 30 ML VIAL ONE (14:20)
[2024-12-04] MEDS ORDERED: fentaNYL (PF) 50 MCG/ML 2 ML AMP ONE (14:20)
[2024-12-04] MEDS ORDERED: MIDAZOLAM 2 MG/2 ML VIAL ONE (14:20)
--- NOTE | 2024-12-04 14:37 | P.PCN ---
Date of Procedure: 12/04/24 Procedure(s) Performed: PREOPERATIVE DIAGNOSIS : 1- Lumbar spondylosis with Facet Arthropathy with out myelopathy . 2- Lumber degenerative disc disease POSTOPERATIVE DIAGNOSIS: 1- Lumbar spondylosis with Facet Arthropathy without myelopathy . 2- Lumber degenerative disc disease PROCEDURE: Diagnostic bilateral L3 , L4 , and L5 medial branch block under fluoroscopy guidance(fluoroscopy images available in the radiology Department ) ( To target the facet joint between Bilateral L4-5 , and L5-S1 ) ANESTHESIA: moderate sedation with intravenous Versed 4 mg and Fentanyl 100 mcg.(Sedation start time 14:20, end time 14:33 ) EBL: Minimal COMPLICATION: None PROCEDURE INDICATION: Chronic low back pain secondary to Facet arthropathy unresponsive to conservative treatment. PROCEDURE DESCRIPTION: the patient was seen and identified in the preop holding area , risks and benefits and possible complications of the procedure and alternative were discussed with the patient, and the patient agreed to proceed with the procedure and signed the consent and vital signs monitored during the procedure and fluoroscopy was used to maximize the benefit and accuracy of the needle placement, and sedation was given to decrease patient anxiety, patient was taken to the procedure room and placed in prone position vital signs monitored in the back prepped with chlorhexidine X3 then under strict sterile technique using a right oblique fluoroscopy ,the junction of the transverse process and the superior articulating process of the right L3 , L4 , and L5 vertebra which corresponding to the fluoroscopy image of the eye of the Wilfrid dog on the block side for the medial branches and subsequently , after local infiltration of skin and subcu tissuies with Ropivacaine 0.5 % , one mL at each level ,then 22-gauge 5 inches long Quincke-type needles , 3 needle was used , each one of them placed at the junction of the base of the transverse process and the superior articular process at the appropriate level, and the needle was advanced until the periosteum contacted, needle placement confirmed with AP oblique and lateral view and after appropriate needle placement confirmed, and after negative aspiration for heme and CSF and there was no paresthesia 1-1/2 mL of Ropivacaine 0.5% used , then half mL injected at each level after negative aspiration the needle subsequently removed and the same procedure repeated for the left side at left side at L3 , L4 and L5 levels. At the end of the procedure and the needles removed and a bandage applied after the skin was cleaned the cleaning solution patient taken to recovery room in stable condition and monitors in the recovery room for 20-30 minutes and discharged home in stable condition after discharge criteria met and patient will follow up with the pain clinic in 2-4 weeks
--- NOTE | 2024-12-04 14:43 | FL ---
Fluoroscopy INDICATION: Pain FINDINGS: Fluoroscopy time: 22.6 seconds. Total dose area product (DAP) in uGy*m?, mGy*cm? (or similar): 0.91889 Images obtained: 5. Images document Dorris directed towards the lumbar spine IMPRESSION: 1. Documentation of fluoroscopy. [facility], , 12/04/2024 2:41 PM
[2024-12-04 14:50] VITALS: RESP 18
[2024-12-04 15:03] VITALS: BP 132/82; PULSE 77
== END 2024-12-04 15:22 | disposition home or self-care (01) ==
LOC: ORPAIN 12:25
PROVIDERS: ATTEND Specialist
DX: M47.816 Spondylosis without myelopathy or radiculopathy, lumbar region (principal); M51.369 Other intervertebral disc degeneration, lumbar region without mention of lumbar back pain or lower extremity pain; Z88.2 Allergy status to sulfonamides; Z88.0 Allergy status to penicillin; Z88.1 Allergy status to other antibiotic agents; Z88.6 Allergy status to analgesic agent; Z91.040 Latex allergy status
CPT/HCPCS: 64493; 64494; J2250; J2405; J3010; J2795; 99152

== ENCOUNTER → 2024-12-22 | Outpatient (CLI) | payer BC ==
[2024-12-22 10:47] VITALS: BP 132/84; PULSE 84; RESP 18
--- NOTE | 2024-12-24 07:59 | P.PAINPG ---
Objective - Vital Signs Vital signs: Vital Signs Temp Pulse 84 12/22/24 10:41 Resp 18 12/22/24 10:41 BP 132/84 12/22/24 10:41 Pulse Ox 94 L 12/22/24 10:41 FiO2 Intake & Output 12/21/24 12/22/24 12/22/24 18:59 06:59 18:59 Weight 104.326 kg PQRS Measure Charge Sheet Mode of Arrival: Ambulatory Comment: HISTORY OF PRESENT ILLNESS: A 44 yr old female presents today w severe and chronic LBP > 3 mo secondary to radiculopathy, spondylosis and facet arthropathy without myelopathy for evaluation s/p BL MBB L4-L5, L5-S1 #1. Pt states she experienced 90% pain relief x 4 hrs s/p procedure. Pt states pain level is provoked at 8 /10 in intensity, constant, localized in the lumbar spine, predominantly axial, throbbing in character w occasional shooting pain towards the buttocks and LEs. Pain is provoked by lifting, PT x 4 wks in Jul 2024 which provoked pain. Pain is alleviated by physician guided home exercises 4-5 times weekly since Jul 2024, medications, manual massage, repositioning and rest . Oswestry axial pain score at 31. Interventional procedures include BL MBB L3-L5 x1 Meds: See list incl Ibu. Daily ETOH use, Hx of OD/ Suicide Attempt (2019) REVIEW OF ORGAN SYSTEMS: CONSTITUTIONAL: No fevers or chills. No recent weight loss. NEUROLOGICAL: + numbness and tingling along the distal extremities. No seizure disorders or headaches. MUSCULOSKELETAL: + pain PSYCHIATRIC: Denies current depression or suicidal thoughts. Physical Examinations : Constitutional : Cooperative , not in acute distress . Neurologic : Cranial nerve II to XII intact. No focal neurological deficits. Psychiatric : alert & oriented x 3. Matching mood & appropriate affect. Judgment & insight intact. Musculoskeletal : Cervical Spine Motor strength in the deltoid and biceps: Normal right side. Normal Left side Motor strength biceps and the wrist extensors: Normal right side . Normal left side Motor strength in the triceps muscle: Normal right side. Normal left side Deep tendon reflexes: Normal at the biceps. Normal at Brachioradialis. Normal at triceps Vertebral body tenderness to deep palpation over Cervical facet loading test: positive bilaterally Spurling test: positive bilaterally Neck distraction test: positive bilaterally Osvaldo sign: positive bilaterally Lumbar spine Motor strength lower extremities ,thigh and legs 5/5 Right side , 5/5 Left side Deep tendon reflexes : Normal Knee Jerk. Normal Ankle Jerk Vertebral body tenderness over Castillo Test positive Lumbar facet Loading Test: positive Right / positive Left L4-L5/ L5-S1 Range of motion of the lumbar spine Flexion 30 degrees, extension 10 degrees Straight Leg Raise test: Left/ Right positive at degrees Josselin test: positive right / positive left. Severe tenderness over the Sacroiliac joint on the Right / Left sides Gaenslen test: positive bilaterally Seated flexion test: positive bilaterally. Sacral spine : Severe tenderness over the Sacroiliac joint: right side / left side Range of motion: Flexion of the lumbar spine <60 degrees Range of motion: Extension of the lumbar spine <20 degrees Gaenslen's Test positive Josselin test: positive right side / left side Thigh Thrust Test Sacral Thrust Test Imaging: CT non contrast lumbar spine from 07/07/24 reviewed Assessment/ Plan : L2-L3/ L4-S1 radiculopathy Recommendation of BL MBB L4-L5, L5-S1 #2. Risks, benefits of procedure discussed and patient verbalized understanding. Admits to anti- coagulant use or medical history of diabetes. Protocol for discontinuation/ continuation of medications adri procedure discussed. Minimal anesthesia provided, if clinically indicated, consisting of Versed and Fentanyl. All questions answered. I have spent greater than 30 minutes on patient care today. Dr Ortiz was available by phone for the evaluation of this patient. The time was used to review the medical records including relevant urine studies and Prescription history (MAPs), review of the available imaging, evaluation and examination of the patient, coordination of care with the medical staff and if applicable referring physicians, as well as creation of the medical record - Pain Location Right Lower Back Non-Pharmacological Interventions: Home Exercise Pharmacological Interventions: Block PQRS Narrative: Smoking Status Never smoker Blood Pressure 132/84 Pain Intensity [Right Lower 6 Back] Scale Used Numeric (1 - 10) Hx Alcohol Use (MH) No Home Medications: Ambulatory Orders LORazepam [Lorazepam] 0.5 mg PO DIRECTED PRN 12/02/24 diphenhydrAMINE [Benadryl] 75 mg PO HS PRN 12/02/24 Controlled Substance Measures - Controlled Substance Measures Is patient prescribed a controlled substance at discharge?: No
== END ==
LOC: PNWHC3 10:31
PROVIDERS: ATTEND Anesthesiology
DX: M47.27 Other spondylosis with radiculopathy, lumbosacral region (principal); Z88.0 Allergy status to penicillin; Z88.5 Allergy status to narcotic agent; Z88.2 Allergy status to sulfonamides; Z88.6 Allergy status to analgesic agent; Z91.040 Latex allergy status
CPT/HCPCS: 99211

== ENCOUNTER → 2025-01-06 | Outpatient (CLI) | payer BC ==
--- NOTE | 2025-01-06 17:48 | MM ---
Reason for Exam: Screening (asymptomatic). Last mammogram was performed 1 year(s) and 4 month(s) ago. Patient History: Menarche at age 11. First Full-Term at age 25. Hysterectomy at age 33. Patient has history of breast feeding. Patient used Hormonal Contraceptives for 1 year. Paternal grandmother had breast cancer, age 60. Maternal grandmother had breast cancer, age 60. Risk Values: Ute 5 year model risk: 0.6%. NCI Lifetime model risk: 9.7%. Prior Study Comparison: 10/22/2019 Right Diagnostic Mammogram, [facility]. 04/05/2022 Bilateral MG screening mammo w CAD, [facility]. 08/15/2023 Bilateral MG 3D screening mammo w/cad, [facility]. Tissue Density: There are scattered areas of fibroglandular density. Findings: Analyzed By CAD. There is no suspicious group of microcalcifications or new suspicious mass in either breast. Overall Assessment: Negative, BI-RAD 1 Management: Screening Mammogram of both breasts in 1 year. Patient should continue monthly self-breast exams. A clinical breast exam by your physician is recommended on an annual basis. This exam should not preclude additional follow-up of suspicious palpable abnormalities. Note on Ute scores and lifetime risk: 1. A Ute score greater than 3% is considered moderate risk. If this is the case, consider specialist referral to assess eligibility for a risk reducing agent. 2. If overall lifetime risk for the development of breast cancer is 20% or higher, the patient may qualify for future screening with alternating mammogram and breast MRI. [facility], , 01/06/2025 5:45 PM. Electronically signed and approved by: Vaibhav Morelos M.D. Radiologist
== END | disposition home or self-care (01) ==
LOC: RADMAMWWP 12:40
PROVIDERS: ATTEND Family Medicine
DX: Z12.31 Encounter for screening mammogram for malignant neoplasm of breast (principal); R92.323 Mammographic fibroglandular density, bilateral breasts; Z92.0 Personal history of contraception; Z80.3 Family history of malignant neoplasm of breast
CPT/HCPCS: 77063; 77067